=== PATIENT | male | born 1965 | race Hispanic/Latino ===

== ENCOUNTER 2017-01-28 18:10 | Emergency (ER) | payer OTHER ==
[2017-01-28 18:18] VITALS: BP 122/88
== END 2017-01-28 19:58 | disposition left against medical advice (07) ==
LOC: ED 18:10
DX: M79.1 Myalgia (principal); Z53.21 Procedure and treatment not carried out due to patient leaving prior to being seen by health care provider

== ENCOUNTER 2017-01-29 21:44 | Emergency (ER) | payer SELFPAY ==
[2017-01-29 21:58] VITALS: BP 110/69
[2017-01-29 22:30] LABS: BUN/Creatinine Ratio 11.42; Calcium 7.9 mg/dL (8.4-10.2); Chloride 91.2 mmol/L (98-107); Potassium 3.6 mmol/L (3.6-5.0)
[2017-01-29 23:07] LABS: Eosinophils % (Auto) 1.2 % (0.0-4.3); Hematocrit 42.5 % (35.5-45.6); Hemoglobin 13.8 gm/dl (11.8-15.2); Mean Corpuscular HGB Conc 32 % (32-34); Mean Corpuscular Hemoglobin 32 pg (28-32); Mean Corpuscular Volume 99 fl (84-94); Platelet Count 265 K/mm3 (140-440); Red Blood Count 4.31 M/mm3 (3.65-5.03); White Blood Count 7.1 K/mm3 (4.5-11.0)
[2017-01-30 00:14] LABS: Bilirubin,Urine NEG (Negative); Blood,Urine NEG (Negative); Ketones,Urine NEG (Negative); Leukocyte Esterase,Urine NEG (Negative); Nitrite,Urine NEG (Negative); Protein,Urine <15 mg/dL mg/dL (Negative); Urobilinogen,Urine < 2.0 mg/dL (<2.0); WBC,Urine < 1.0 /HPF (0.0-6.0)
--- NOTE | 2017-02-06 23:39 | ED Elopement Review ---
ED Pt Elopement review - Results review Lab results: Laboratory Tests 01/29/17 01/29/17 01/29/17 22:00 22:07 22:07 WBC 7.1 RBC 4.31 Hgb 13.8 Hct 42.5 MCV 99 H MCH 32 MCHC 32 RDW 14.0 Plt Count 265 Lymph % (Auto) 17.0 [place] % (Auto) 9.1 H Eos % (Auto) 1.2 Baso % (Auto) 1.0 Lymph # 1.2 [place] # 0.6 Eos # 0.1 Baso # 0.1 Seg Neutrophils % 71.7 H Seg Neutrophils # 5.1 VBG pH Sodium 128 L Potassium 3.6 Chloride 91.2 L Carbon Dioxide 20 L Anion Gap 20 BUN 16 Creatinine 1.4 Estimated GFR 53 BUN/Creatinine Ratio 11.42 Glucose 831 H* POC Glucose > 500 H Calcium 7.9 L Urine Color Urine Turbidity Urine pH Ur Specific [place] Urine Protein Urine Glucose (UA) Urine Ketones Urine Blood Urine Nitrite Urine Bilirubin Urine Urobilinogen Ur Leukocyte Esterase Urine WBC (Auto) Urine RBC (Auto) U Epithel Cells (Auto) 01/29/17 01/29/17 22:07 23:14 WBC RBC Hgb Hct MCV MCH MCHC RDW Plt Count Lymph % (Auto) [place] % (Auto) Eos % (Auto) Baso % (Auto) Lymph # [place] # Eos # Baso # Seg Neutrophils % Seg Neutrophils # VBG pH 7.255 L Sodium Potassium Chloride Carbon Dioxide Anion Gap BUN Creatinine Estimated GFR BUN/Creatinine Ratio Glucose POC Glucose Calcium Urine Color Yellow Urine Turbidity Clear Urine pH 6.0 Ur Specific [place] 1.023 Urine Protein <15 mg/dl Urine Glucose (UA) >=500 Urine Ketones Neg Urine Blood Neg Urine Nitrite Neg Urine Bilirubin Neg Urine Urobilinogen < 2.0 Ur Leukocyte Esterase Neg Urine WBC (Auto) < 1.0 Urine RBC (Auto) 3.0 U Epithel Cells (Auto) < 1.0 - Call Back decision Pt Call Back Decision: No action required (pt returned and was evaluated)
== END 2017-01-29 23:00 | disposition left against medical advice (07) ==
LOC: ED 21:44
DX: Z53.21 Procedure and treatment not carried out due to patient leaving prior to being seen by health care provider (principal)
CPT/HCPCS: 36415; 80048; 81001; 82805; 82962; 85025

== ENCOUNTER 2017-01-30 17:47 | Emergency (ER) | payer SELFPAY ==
--- NOTE | 2017-01-30 18:14 | Emergency Department Report ---
Chief Complaint: Hyperglycemia Stated Complaint: DIABETES/MUSCLE CRAMPS Time Seen by Provider: 01/30/17 18:11 - HPI History of Present Illness: PT c/o urinating every hour x 1 year pt c/o body pain x 1 month PT states he has been off his medication x 1 - 2 months - ROS Review of Systems: + urinary frequency + body aches - Exam Physical Exam: thin male, no acute distress accucheck over 500 MSE screening note: Focused history and physical exam performed. Due to findings the following was ordered: labs ED Disposition for MSE Condition: Stable
[2017-01-30] MEDS ORDERED: NACL 0.9% 1000 ML 1,000 ML IV ONE ×2 (18:15→21:05)
[2017-01-30 18:38] LABS: Basophils % (Auto) 0.8 % (0.0-1.8); Eosinophils % (Auto) 1.5 % (0.0-4.3); Hemoglobin 12.9 gm/dl (11.8-15.2); Mean Corpuscular HGB Conc 33 % (32-34); Mean Corpuscular Hemoglobin 32 pg (28-32); Mean Corpuscular Volume 96 fl (84-94); Platelet Count 260 K/mm3 (140-440); Red Blood Count 4.07 M/mm3 (3.65-5.03); Red Cell Distribution Width 14.1 % (13.2-15.2); White Blood Count 7.1 K/mm3 (4.5-11.0)
[2017-01-30 18:58] LABS: Anion Gap 20 mmol/L; Blood Urea Nitrogen 12 mg/dL (9-20); Calcium 7.7 mg/dL (8.4-10.2); Carbon Dioxide 19 mmol/L (22-30); Chloride 94.7 mmol/L (98-107); Creatine Kinase 591 units/L (55-170); Potassium 3.5 mmol/L (3.6-5.0); Sodium 130 mmol/L (137-145)
[2017-01-30 19:16] LABS: Glucose 798 mg/dL (75-100)
[2017-01-30 19:16] LABS: Bilirubin,Urine NEG (Negative); Blood,Urine NEG (Negative); Ketones,Urine NEG (Negative); Leukocyte Esterase,Urine NEG (Negative); Mucus,Urine FEW /HPF; Nitrite,Urine NEG (Negative); Protein,Urine <15 mg/dL mg/dL (Negative); Urobilinogen,Urine < 2.0 mg/dL (<2.0); WBC,Urine < 1.0 /HPF (0.0-6.0)
[2017-01-30 19:33] LABS: Ketones Negative (Negative)
--- NOTE | 2017-01-30 21:07 | Emergency Department Report ---
ED General Adult HPI - General Chief complaint: Hyperglycemia Stated complaint: DIABETES/MUSCLE CRAMPS Time Seen by Provider: 01/30/17 18:11 Source: patient, RN notes reviewed, old records reviewed Mode of arrival: Ambulatory Limitations: No Limitations - History of Present Illness Initial comments: This is a 51-year-old male. He is previously unknown to me. He reports a past medical history of diabetes and neuropathic pain. The patient can't recall all of his medications, he does think that he is taking gabapentin in the past, 300 mg thrice daily. The patient presents to the ER with complaint of bilateral upper and lower extremity cramping and discomfort, and hyperglycemia. He endorses urinary frequency. Denies headache, neck pain, chest pain, abdominal pain and shortness of breath. His symptoms are constant. They have no exacerbating or relieving factors. -: Gradual Location: left, right, upper extremity, lower extremity Consistency: constant Improves with: none Worsens with: none Associated Symptoms: denies other symptoms - Related Data Home Medications Medication Instructions Recorded Confirmed Last Taken Insulin Regular, Human See Protocol SC ACHS 01/30/17 02/01/17 Unknown Mirtazapine [Remeron] 30 mg PO DAILY 02/01/17 02/01/17 Unknown glipiZIDE [Glucotrol] 2.5 mg PO BID 02/01/17 02/01/17 Unknown Previous Rx's Medication Instructions Recorded Last Taken Type Gabapentin 300 mg PO TID #42 01/30/17 Unknown Rx Lantus Solostar 25 units SC QHS #5 01/30/17 Unknown Rx metFORMIN 1,000 mg PO BID #28 01/30/17 Unknown Rx Allergies Allergy/AdvReac Type Severity Reaction Status Date / Time No Known Allergies Allergy Verified 08/01/13 22:14 ED Review of Systems ROS: Stated complaint: DIABETES/MUSCLE CRAMPS Other details as noted in HPI Constitutional: malaise, weakness Eyes: denies: vision change ENT: denies: epistaxis Respiratory: denies: cough Cardiovascular: denies: chest pain Gastrointestinal: denies: nausea, vomiting Genitourinary: frequency Musculoskeletal: arthralgia, myalgia. denies: back pain Skin: lesions Neurological: weakness Psychiatric: denies: anxiety ED Past Medical Hx - Past Medical History Previous Medical History?: Yes Hx Hypertension: Yes Hx Congestive Heart Failure: No Hx Diabetes: Yes Hx Asthma: No Hx COPD: No Hx HIV: No - Surgical History Past Surgical History?: Yes Hx Cholecystectomy: Yes Additional Surgical History: hernia - Social History Smoking Status: Current Every Day Smoker Substance Use Type: None - Medications Home Medications: Home Medications Medication Instructions Recorded Confirmed Last Taken Type Gabapentin 300 mg PO TID #42 01/30/17 02/01/17 Unknown Rx Insulin Regular, Human See Protocol SC ACHS 01/30/17 02/01/17 Unknown History Lantus Solostar 25 units SC QHS #5 01/30/17 02/01/17 Unknown Rx metFORMIN 1,000 mg PO BID #28 01/30/17 02/01/17 Unknown Rx Mirtazapine [Remeron] 30 mg PO DAILY 02/01/17 02/01/17 Unknown History glipiZIDE [Glucotrol] 2.5 mg PO BID 02/01/17 02/01/17 Unknown History ED Physical Exam - General Limitations: No Limitations General appearance: alert, in no apparent distress - Head Head exam: Present: atraumatic, normocephalic - Eye Eye exam: Present: normal appearance, EOMI. Absent: nystagmus - ENT ENT exam: Present: normal exam, normal orophraynx, mucous membranes moist, normal external ear exam - Neck Neck exam: Present: normal inspection - Respiratory Respiratory exam: Present: normal lung sounds bilaterally. Absent: respiratory distress, wheezes, rales, rhonchi, stridor, chest wall tenderness - Cardiovascular Cardiovascular Exam: Present: normal rhythm, bradycardia, normal heart sounds. Absent: tachycardia, irregular rhythm, systolic murmur, diastolic murmur, rubs, gallop - GI/Abdominal GI/Abdominal exam: Present: soft, normal bowel sounds. Absent: distended, guarding, rebound, rigid, pulsatile mass - Rectal Rectal exam: Present: deferred - Extremities Exam Extremities exam: Present: normal inspection, full ROM, normal capillary refill. Absent: pedal edema, joint swelling, calf tenderness - Back Exam Back exam: Present: normal inspection, full ROM. Absent: tenderness, CVA tenderness (R), CVA tenderness (L), muscle spasm, paraspinal tenderness, vertebral tenderness - Neurological Exam Neurological exam: Present: alert, oriented X3, normal gait, other (Extraocular movements intact. Tongue midline. No facial droop. Facial sensation intact to light touch in the V1, V2, V3 distribution bilaterally. 5 and 5 strength in 4 extremities.. Sensation is intact to light touch in 4 extremities.). Absent : motor sensory deficit - Psychiatric Psychiatric exam: Present: anxious - Skin Skin exam: Present: warm, dry, intact, normal color. Absent: rash ED Course Vital Signs 01/30/17 01/30/17 01/30/17 18:11 20:58 21:00 Temperature 98.2 F Pulse Rate 73 Respiratory 16 Rate Blood Pressure 104/74 O2 Sat by Pulse 98 99 100 Oximetry 01/30/17 01/30/17 01/30/17 21:53 22:00 22:30 Temperature Pulse Rate 61 57 L 67 Respiratory 17 19 19 Rate Blood Pressure 120/74 116/75 O2 Sat by Pulse 99 100 99 Oximetry 01/30/17 01/30/17 23:00 23:31 Temperature Pulse Rate 58 L 63 Respiratory 22 14 Rate Blood Pressure 111/71 116/65 O2 Sat by Pulse 97 97 Oximetry ED Medical Decision Making - Lab Data Result diagrams: 01/30/17 18:20 01/30/17 18:20 Vital Signs 01/30/17 01/30/17 18:11 21:53 Temperature 98.2 F Pulse Rate 73 61 Respiratory 16 17 Rate Blood Pressure 104/74 O2 Sat by Pulse 98 99 Oximetry Lab Results 01/30/17 01/30/17 01/30/17 Range/Units 18:08 18:20 18:20 WBC 7.1 (4.5-11.0) K/mm3 RBC 4.07 (3.65-5.03) M/mm3 Hgb 12.9 (11.8-15.2) gm/dl Hct 39.0 (35.5-45.6) % MCV 96 H (84-94) fl MCH 32 (28-32) pg MCHC 33 (32-34) % RDW 14.1 (13.2-15.2) % Plt Count 260 (140-440) K/mm3 Lymph % (Auto) 21.9 (13.4-35.0) % [place] % (Auto) 9.2 H (0.0-7.3) % Eos % (Auto) 1.5 (0.0-4.3) % Baso % (Auto) 0.8 (0.0-1.8) % Lymph # 1.5 (1.2-5.4) K/mm3 [place] # 0.7 (0.0-0.8) K/mm3 Eos # 0.1 (0.0-0.4) K/mm3 Baso # 0.1 (0.0-0.1) K/mm3 Seg Neutrophils % 66.6 (40.0-70.0) % Seg Neutrophils # 4.7 (1.8-7.7) K/mm3 VBG pH (7.320-7.420) Sodium 130 L (137-145) mmol/L Potassium 3.5 L (3.6-5.0) mmol/L Chloride 94.7 L (98-107) mmol/L Carbon Dioxide 19 L (22-30) mmol/L Anion Gap 20 mmol/L BUN 12 (9-20) mg/dL Creatinine 1.1 (0.8-1.5) mg/dL Estimated GFR > 60 ml/min BUN/Creatinine Ratio 10.90 % Glucose 798 H* (75-100) mg/dL POC Glucose > 500 H (70-105) Ketones Quantitative Negative (Negative) Calcium 7.7 L (8.4-10.2) mg/dL Phosphorus (2.5-4.5) mg/dL Magnesium (1.7-2.3) mg/dL Total Creatine Kinase 591 H (55-170) units/L Urine Color (Yellow) Urine Turbidity (Clear) Urine pH (5.0-7.0) Ur Specific [place] (1.003-1.030) Urine Protein (Negative) mg/dL Urine Glucose (UA) (Negative) mg/dL Urine Ketones (Negative) mg/dL Urine Blood (Negative) Urine Nitrite (Negative) Urine Bilirubin (Negative) Urine Urobilinogen (<2.0) mg/dL Ur Leukocyte Esterase (Negative) Urine WBC (Auto) (0.0-6.0) /HPF Urine RBC (Auto) (0.0-6.0) /HPF Urine Mucus /HPF 01/30/17 01/30/17 01/30/17 Range/Units 18:20 18:53 21:10 WBC (4.5-11.0) K/mm3 RBC (3.65-5.03) M/mm3 Hgb (11.8-15.2) gm/dl Hct (35.5-45.6) % MCV (84-94) fl MCH (28-32) pg MCHC (32-34) % RDW (13.2-15.2) % Plt Count (140-440) K/mm3 Lymph % (Auto) (13.4-35.0) % [place] % (Auto) (0.0-7.3) % Eos % (Auto) (0.0-4.3) % Baso % (Auto) (0.0-1.8) % Lymph # (1.2-5.4) K/mm3 [place] # (0.0-0.8) K/mm3 Eos # (0.0-0.4) K/mm3 Baso # (0.0-0.1) K/mm3 Seg Neutrophils % (40.0-70.0) % Seg Neutrophils # (1.8-7.7) K/mm3 VBG pH 7.319 L (7.320-7.420) Sodium (137-145) mmol/L Potassium (3.6-5.0) mmol/L Chloride (98-107) mmol/L Carbon Dioxide (22-30) mmol/L Anion Gap mmol/L BUN (9-20) mg/dL Creatinine (0.8-1.5) mg/dL Estimated GFR ml/min BUN/Creatinine Ratio % Glucose (75-100) mg/dL POC Glucose (70-105) Ketones Quantitative (Negative) Calcium (8.4-10.2) mg/dL Phosphorus 3.40 (2.5-4.5) mg/dL Magnesium 2.10 (1.7-2.3) mg/dL Total Creatine Kinase (55-170) units/L Urine Color Straw (Yellow) Urine Turbidity Clear (Clear) Urine pH 6.0 (5.0-7.0) Ur Specific [place] 1.024 (1.003-1.030) Urine Protein <15 mg/dl (Negative) mg/dL Urine Glucose (UA) >=500 (Negative) mg/dL Urine Ketones Neg (Negative) mg/dL Urine Blood Neg (Negative) Urine Nitrite Neg (Negative) Urine Bilirubin Neg (Negative) Urine Urobilinogen < 2.0 (<2.0) mg/dL Ur Leukocyte Esterase Neg (Negative) Urine WBC (Auto) < 1.0 (0.0-6.0) /HPF Urine RBC (Auto) 2.0 (0.0-6.0) /HPF Urine Mucus Few /HPF 01/30/17 Range/Units 21:48 WBC (4.5-11.0) K/mm3 RBC (3.65-5.03) M/mm3 Hgb (11.8-15.2) gm/dl Hct (35.5-45.6) % MCV (84-94) fl MCH (28-32) pg MCHC (32-34) % RDW (13.2-15.2) % Plt Count (140-440) K/mm3 Lymph % (Auto) (13.4-35.0) % [place] % (Auto) (0.0-7.3) % Eos % (Auto) (0.0-4.3) % Baso % (Auto) (0.0-1.8) % Lymph # (1.2-5.4) K/mm3 [place] # (0.0-0.8) K/mm3 Eos # (0.0-0.4) K/mm3 Baso # (0.0-0.1) K/mm3 Seg Neutrophils % (40.0-70.0) % Seg Neutrophils # (1.8-7.7) K/mm3 VBG pH (7.320-7.420) Sodium (137-145) mmol/L Potassium (3.6-5.0) mmol/L Chloride (98-107) mmol/L Carbon Dioxide (22-30) mmol/L Anion Gap mmol/L BUN (9-20) mg/dL Creatinine (0.8-1.5) mg/dL Estimated GFR ml/min BUN/Creatinine Ratio % Glucose (75-100) mg/dL POC Glucose 484 H (70-105) Ketones Quantitative (Negative) Calcium (8.4-10.2) mg/dL Phosphorus (2.5-4.5) mg/dL Magnesium (1.7-2.3) mg/dL Total Creatine Kinase (55-170) units/L Urine Color (Yellow) Urine Turbidity (Clear) Urine pH (5.0-7.0) Ur Specific [place] (1.003-1.030) Urine Protein (Negative) mg/dL Urine Glucose (UA) (Negative) mg/dL Urine Ketones (Negative) mg/dL Urine Blood (Negative) Urine Nitrite (Negative) Urine Bilirubin (Negative) Urine Urobilinogen (<2.0) mg/dL Ur Leukocyte Esterase (Negative) Urine WBC (Auto) (0.0-6.0) /HPF Urine RBC (Auto) (0.0-6.0) /HPF Urine Mucus /HPF - Medical Decision Making Differential diagnosis: Diabetic ketoacidosis, hyperglycemia, medication noncompliance Assessment and plan: 51-year-old male with nonspecific muscular cramps, reassuring vital signs, afebrile, most likely profound symptomatically hyperglycemia. He does not have anion gap acidosis, does not meet criteria for DKA, or hyperosmolar state. He will be treated with IV fluids, insulin, ketorolac, and the nursing staff has reconciled his medications. He is instructed as to the importance of outpatient follow-up. Critical care attestation.: If time is entered above; I have spent that time in minutes in the direct care of this critically ill patient, excluding procedure time. ED Disposition Clinical Impression: Uncontrolled diabetes mellitus Disposition: DC-01 TO HOME OR SELFCARE Is pt being admited?: No Does the pt Need Aspirin: No Condition: Good Instructions: Diabetes Mellitus Type 2 in Adults (ED) Additional Instructions: Take the medications as directed. Follow up with a primary care doctor within the next 2-3 weeks. Please note that you have been given 2 week refills on your medications. It is very important to closely follow up as an outpatient for further management. Long-term complications of hyperglycemia includes stroke, heart attack, disability, , paralysis, loss of quality of life. Return to the ER right away if fevers, chills, chest pain, shortness of breath, intractable nausea or vomiting, confusion, inability to tolerate liquid feeds. Prescriptions: Lantus Solostar 25 units SC QHS #5 Gabapentin 300 mg PO TID #42 metFORMIN 1,000 mg PO BID #28 Referrals: PRIMARY CARE, [Primary Care Provider] - 3-5 Days CHUY REVELES MD [Staff Physician] - 3-5 Days JADA ANDREWS MD [Staff Physician] - 3-5 Days
[2017-01-30 22:02] LABS: Magnesium 2.1 mg/dL (1.7-2.3); Phosphorous 3.4 mg/dL (2.5-4.5)
[2017-01-30] MEDS ORDERED: TORADOL IV ONE (22:42)
[2017-01-30 23:39] VITALS: BP 116/65
== END 2017-01-30 23:39 | disposition home or self-care (01) ==
LOC: ED 17:47
DX: E11.65 Type 2 diabetes mellitus with hyperglycemia (principal); I10 Essential (primary) hypertension; F17.210 Nicotine dependence, cigarettes, uncomplicated; Z79.4 Long term (current) use of insulin
CPT/HCPCS: 36415; 80048; 81001; 82010; 82550; 82805; 82962; 83735; 84100; 85025; 96361; 96374; 96375; 99284; J1885; J7030; J1815

== ENCOUNTER 2017-02-01 11:48 | Emergency (ER) | payer OTHER ==
--- NOTE | 2017-02-01 11:59 | Emergency Department Report ---
ED Altered Mental Status HPI - General Stated Complaint: OVERDOSE Time Seen by Provider: 02/01/17 11:54 - History of Present Illness Initial Comments: Patient is a 51-year-old male who took 5 10 tablets. He was found in a bathroom slumped over. On arrival he is arousable to voice. EMS did not administer any Narcan. He has an extremely slow respiratory rate. He states he was not trying to intentionally overdose but felt that he needed some additional methadone. He states he usually takes 2-3 times a day. MD Complaint: altered mental status -: Sudden Severity: moderate Consistency of Symptoms: waxing and waning Context: drug abuse Associated Symptoms: denies other symptoms - Related Data Home Medications Medication Instructions Recorded Confirmed Last Taken ALPRAZolam 0.5 mg PO DAILY 01/30/17 01/30/17 Unknown Insulin Regular, Human See Protocol SC ACHS 01/30/17 01/30/17 Unknown Previous Rx's Medication Instructions Recorded Last Taken Type Gabapentin 300 mg PO TID #42 01/30/17 Unknown Rx Lantus Solostar 25 units SC QHS #5 01/30/17 Unknown Rx metFORMIN 1,000 mg PO BID #28 01/30/17 Unknown Rx Allergies Allergy/AdvReac Type Severity Reaction Status Date / Time No Known Allergies Allergy Verified 08/01/13 22:14 ED Review of Systems ROS: Stated complaint: OVERDOSE Other details as noted in HPI Comment: All other systems reviewed and negative Constitutional: weakness Eyes: denies: eye pain, eye discharge, vision change ENT: denies: ear pain, throat pain Respiratory: denies: cough, shortness of breath, wheezing Cardiovascular: denies: chest pain, palpitations Endocrine: no symptoms reported Gastrointestinal: denies: abdominal pain, nausea, diarrhea Genitourinary: denies: urgency, dysuria Musculoskeletal: denies: back pain, joint swelling, arthralgia Skin: denies: rash, lesions Neurological: denies: headache, weakness, paresthesias Psychiatric: denies: anxiety, depression Hematological/Lymphatic: denies: easy bleeding, easy bruising ED Past Medical Hx - Past Medical History Hx Hypertension: Yes Hx Congestive Heart Failure: No Hx Diabetes: Yes Hx Asthma: No Hx COPD: No Hx HIV: No - Surgical History Hx Cholecystectomy: Yes Additional Surgical History: hernia - Family History Family history: no significant - Social History Smoking Status: Current Every Day Smoker Substance Use Type: None - Medications Home Medications: Home Medications Medication Instructions Recorded Confirmed Last Taken Type ALPRAZolam 0.5 mg PO DAILY 01/30/17 01/30/17 Unknown History Gabapentin 300 mg PO TID #42 01/30/17 Unknown Rx Insulin Regular, Human See Protocol SC ACHS 01/30/17 01/30/17 Unknown History Lantus Solostar 25 units SC QHS #5 01/30/17 Unknown Rx metFORMIN 1,000 mg PO BID #28 01/30/17 Unknown Rx ED Physical Exam - General Limitations: Altered Mental Status General appearance: lethargic, obtunded, other (thin and cachectic) - Head Head exam: Present: atraumatic, normocephalic - Eye Eye exam: Absent: scleral icterus, conjunctival injection Pupils: Present: other (pinpoint pupils) - ENT ENT exam: Present: normal orophraynx, mucous membranes dry. Absent: normal exam - Neck Neck exam: Present: normal inspection. Absent: tenderness - Respiratory Respiratory exam: Present: normal lung sounds bilaterally, other (decreased respiratory rate) - Cardiovascular Cardiovascular Exam: Present: regular rate, normal rhythm - GI/Abdominal GI/Abdominal exam: Present: soft. Absent: distended, tenderness - Extremities Exam Extremities exam: Absent: normal inspection, full ROM - Neurological Exam Neurological exam: Present: altered, other (answers questions to voice). Absent : alert - Psychiatric Psychiatric exam: Present: normal affect, normal mood - Skin Skin exam: Present: warm, dry, intact ED Course Vital Signs 02/01/17 11:50 Pulse Rate 86 Respiratory 12 Rate Blood Pressure 155/82 Blood Pressure 155/82 [Left] O2 Sat by Pulse 100 Oximetry - Lab Data Result diagrams: 02/01/17 12:23 02/01/17 12:23 Lab Results 02/01/17 02/01/17 02/01/17 Range/Units 11:55 12:23 12:23 WBC 11.2 H (4.5-11.0) K/mm3 RBC 4.38 (3.65-5.03) M/mm3 Hgb 14.3 (11.8-15.2) gm/dl Hct 42.6 (35.5-45.6) % MCV 97 H (84-94) fl MCH 33 H (28-32) pg MCHC 34 (32-34) % RDW 14.2 (13.2-15.2) % Plt Count 265 (140-440) K/mm3 Lymph % (Auto) 6.5 L (13.4-35.0) % [place] % (Auto) 6.9 (0.0-7.3) % Eos % (Auto) 0.4 (0.0-4.3) % Baso % (Auto) 0.6 (0.0-1.8) % Lymph # 0.7 L (1.2-5.4) K/mm3 [place] # 0.8 (0.0-0.8) K/mm3 Eos # 0.0 (0.0-0.4) K/mm3 Baso # 0.1 (0.0-0.1) K/mm3 Seg Neutrophils % 85.6 H (40.0-70.0) % Seg Neutrophils # 9.6 H (1.8-7.7) K/mm3 Sodium (137-145) mmol/L Potassium (3.6-5.0) mmol/L Chloride (98-107) mmol/L Carbon Dioxide (22-30) mmol/L Anion Gap mmol/L BUN (9-20) mg/dL Creatinine (0.8-1.5) mg/dL Estimated GFR ml/min BUN/Creatinine Ratio % Glucose (75-100) mg/dL POC Glucose 446 H (70-105) Lactic Acid 1.60 (0.7-2.0) mmol/L Calcium (8.4-10.2) mg/dL Total Bilirubin (0.1-1.2) mg/dL AST (5-40) units/L ALT (7-56) units/L Alkaline Phosphatase (35-129) units/L Total Creatine Kinase (55-170) units/L Total Protein (6.3-8.2) g/dL Albumin (3.9-5) g/dL Albumin/Globulin Ratio % Urine Color (Yellow) Urine Turbidity (Clear) Urine pH (5.0-7.0) Ur Specific [place] (1.003-1.030) Urine Protein (Negative) mg/dL Urine Glucose (UA) (Negative) mg/dL Urine Ketones (Negative) mg/dL Urine Blood (Negative) Urine Nitrite (Negative) Urine Bilirubin (Negative) Urine Urobilinogen (<2.0) mg/dL Ur Leukocyte Esterase (Negative) Urine WBC (Auto) (0.0-6.0) /HPF Urine RBC (Auto) (0.0-6.0) /HPF U Epithel Cells (Auto) (0-13.0) /HPF Urine Opiates Screen Urine Methadone Screen Ur Barbiturates Screen Ur Phencyclidine Scrn Ur Amphetamines Screen U Benzodiazepines Scrn Urine Cocaine Screen U Marijuana (THC) Screen Drugs of Abuse Note 02/01/17 02/01/17 02/01/17 Range/Units 12:23 12:38 12:38 WBC (4.5-11.0) K/mm3 RBC (3.65-5.03) M/mm3 Hgb (11.8-15.2) gm/dl Hct (35.5-45.6) % MCV (84-94) fl MCH (28-32) pg MCHC (32-34) % RDW (13.2-15.2) % Plt Count (140-440) K/mm3 Lymph % (Auto) (13.4-35.0) % [place] % (Auto) (0.0-7.3) % Eos % (Auto) (0.0-4.3) % Baso % (Auto) (0.0-1.8) % Lymph # (1.2-5.4) K/mm3 [place] # (0.0-0.8) K/mm3 Eos # (0.0-0.4) K/mm3 Baso # (0.0-0.1) K/mm3 Seg Neutrophils % (40.0-70.0) % Seg Neutrophils # (1.8-7.7) K/mm3 Sodium 136 L (137-145) mmol/L Potassium 4.2 (3.6-5.0) mmol/L Chloride 102.1 (98-107) mmol/L Carbon Dioxide 21 L (22-30) mmol/L Anion Gap 17 mmol/L BUN 13 (9-20) mg/dL Creatinine 1.3 (0.8-1.5) mg/dL Estimated GFR 58 ml/min BUN/Creatinine Ratio 10.00 % Glucose 497 H (75-100) mg/dL POC Glucose (70-105) Lactic Acid (0.7-2.0) mmol/L Calcium 7.7 L (8.4-10.2) mg/dL Total Bilirubin 0.30 (0.1-1.2) mg/dL AST 35 (5-40) units/L ALT 39 (7-56) units/L Alkaline Phosphatase 183 H (35-129) units/L Total Creatine Kinase 352 H (55-170) units/L Total Protein 6.1 L (6.3-8.2) g/dL Albumin 3.5 L (3.9-5) g/dL Albumin/Globulin Ratio 1.3 % Urine Color Yellow (Yellow) Urine Turbidity Clear (Clear) Urine pH 6.0 (5.0-7.0) Ur Specific [place] 1.018 (1.003-1.030) Urine Protein <15 mg/dl (Negative) mg/dL Urine Glucose (UA) >=500 (Negative) mg/dL Urine Ketones Neg (Negative) mg/dL Urine Blood Neg (Negative) Urine Nitrite Neg (Negative) Urine Bilirubin Neg (Negative) Urine Urobilinogen < 2.0 (<2.0) mg/dL Ur Leukocyte Esterase Neg (Negative) Urine WBC (Auto) 1.0 (0.0-6.0) /HPF Urine RBC (Auto) 2.0 (0.0-6.0) /HPF U Epithel Cells (Auto) < 1.0 (0-13.0) /HPF Urine Opiates Screen Presumptive negative Urine Methadone Screen Presumptive positive Ur Barbiturates Screen Presumptive negative Ur Phencyclidine Scrn Presumptive negative Ur Amphetamines Screen Presumptive negative U Benzodiazepines Scrn Presumptive negative Urine Cocaine Screen Presumptive negative U Marijuana (THC) Screen Presumptive negative Drugs of Abuse Note Disclamer - Medical Decision Making Patient is a 51-year-old male with a repeat overdose. He presents with altered mental status. Plan to give him 0.4 mg of Narcan to sustain a reasonable respiratory rate and will observe in the emergency Department. Given the long half-life of methadone I suspect that may need to admit the patient overnight for observation. Discussed case with hospitalist. Plan admit patient to the floor for overnight observation given the half-life of methadone. Critical care attestation.: If time is entered above; I have spent that time in minutes in the direct care of this critically ill patient, excluding procedure time. ED Disposition Clinical Impression: Uncontrolled diabetes mellitus Disposition: DC- OP ADMIT IP TO THIS HOSP Is pt being admited?: Yes Condition: Stable Instructions: Diabetes Mellitus Type 2 in Adults (ED)
--- NOTE | 2017-02-01 12:29 | XRay Report ---
CHEST ONE VIEW INDICATION: Altered mental status. COMPARISON: None similar. FINDINGS: Portable, single, frontal chest radiograph demonstrates normal cardiomediastinal silhouette. Clear lungs. Unremarkable bones. Extrinsic EKG leads. CONCLUSION: No acute disease in the chest. Thank you for the opportunity to participate in this patient's care.
[2017-02-01 12:51] LABS: Urine Drugs of Abuse Note Disclamer
[2017-02-01 12:54] LABS: Albumin 3.5 g/dL (3.9-5); Albumin/Globulin Ratio 1.3 %; Bilirubin,Total 0.3 mg/dL (0.1-1.2); Calcium 7.7 mg/dL (8.4-10.2); Chloride 102.1 mmol/L (98-107); Potassium 4.2 mmol/L (3.6-5.0); Total Protein 6.1 g/dL (6.3-8.2)
[2017-02-01 13:01] LABS: Basophils % (Auto) 0.6 % (0.0-1.8); Eosinophils % (Auto) 0.4 % (0.0-4.3); Hematocrit 42.6 % (35.5-45.6); Hemoglobin 14.3 gm/dl (11.8-15.2); Mean Corpuscular HGB Conc 34 % (32-34); Mean Corpuscular Hemoglobin 33 pg (28-32); Mean Corpuscular Volume 97 fl (84-94); Platelet Count 265 K/mm3 (140-440); Red Blood Count 4.38 M/mm3 (3.65-5.03); Red Cell Distribution Width 14.2 % (13.2-15.2); White Blood Count 11.2 K/mm3 (4.5-11.0)
[2017-02-01 13:17] LABS: Bilirubin,Urine NEG (Negative); Blood,Urine NEG (Negative); Ketones,Urine NEG (Negative); Leukocyte Esterase,Urine NEG (Negative); Nitrite,Urine NEG (Negative); Protein,Urine <15 mg/dL mg/dL (Negative); Urobilinogen,Urine < 2.0 mg/dL (<2.0)
[2017-02-01] MEDS ORDERED: NACL 0.9% 1000 ML 1,000 ML ONE (14:15)
[2017-02-01] MEDS ORDERED: NACL 0.9% 1000 ML 1,000 ML IV ONE (14:16)
--- NOTE | 2017-02-01 14:47 | History and Physical Report ---
History of Present Illness Chief complaint: I took too many pills History of present illness: 51 YO Male with HTN, DM, Nicotine Dependence presents to ED for evaluation. Pt states that he felt sleepy after taking extra methadone tablets. Pt states tht he felt like he needed to take extra medication. Pt denies HI/SI/ or iintent to harm himself in any way. Pt seen and evaluated in Ed, but no significant new physical exam findings. Pt medically optimized and back to usual state of health. Pt discharged home and instructed to f/u pcp 1wk. Past History Past Medical History: denies: diabetes, hypertension Past Surgical History: No surgical history (reviewed) Social history: single, smoking. denies: alcohol abuse, prescription drug abuse Family history: hypertension Medications and Allergies Allergies Allergy/AdvReac Type Severity Reaction Status Date / Time No Known Allergies Allergy Verified 08/01/13 22:14 Home Medications Medication Instructions Recorded Confirmed Last Taken Type Gabapentin 300 mg PO TID #42 01/30/17 02/01/17 Unknown Rx Insulin Regular, Human See Protocol [facility] 01/30/17 02/01/17 Unknown History Lantus Solostar 25 units [facility] #5 01/30/17 02/01/17 Unknown Rx metFORMIN 1,000 mg PO BID #28 01/30/17 02/01/17 Unknown Rx Mirtazapine [Remeron] 30 mg PO DAILY 02/01/17 02/01/17 Unknown History glipiZIDE [Glucotrol] 2.5 mg PO BID 02/01/17 02/01/17 Unknown History Active Meds: Active Medications Sodium Chloride (Nacl 0.9% 1000 Ml) 1,000 mls @ 999 mls/hr IV BOLUS ONE Stop: 02/01/17 15:16 Last Admin: 02/01/17 14:24 Dose: 999 mls/hr Review of Systems Constitutional: weakness, no fever, no chills Ears, nose, mouth and throat: no ear pain, no decreased hearing, no nasal discharge Cardiovascular: no chest pain, no palpitations Respiratory: no cough, no cough with sputum Gastrointestinal: no nausea, no vomiting Exam - Constitutional Vitals: Temp Pulse Resp BP Pulse Ox 86 12 155/82 100 02/01/17 11:50 02/01/17 11:50 02/01/17 11:50 02/01/17 11:50 General appearance: Present: no acute distress, well-nourished - EENT Eyes: Present: PERRL ENT: hearing intact, clear oral mucosa - Neck Neck: Present: supple, normal ROM - Respiratory Respiratory effort: normal Respiratory: bilateral: CTA - Cardiovascular Heart Sounds: Present: S1 & S2. Absent: rub, click - Extremities Extremities: pulses symmetrical, No edema Peripheral Pulses: within normal limits - Abdominal General gastrointestinal: Present: soft, non-tender, non-distended, normal bowel sounds Male genitourinary: Present: normal - Integumentary Integumentary: Present: clear, warm, dry - Musculoskeletal Musculoskeletal: gait normal, strength equal bilaterally - Psychiatric Psychiatric: appropriate mood/affect, intact judgment & insight - Neurologic Neurologic: CNII-XII intact, moves all extremities Results - Labs CBC & Chem 7: 02/01/17 12:23 02/01/17 12:23 Labs: Abnormal lab results 02/01/17 02/01/17 02/01/17 Range/Units 11:55 12:23 12:23 WBC 11.2 H (4.5-11.0) K/mm3 MCV 97 H (84-94) fl MCH 33 H (28-32) pg Lymph % (Auto) 6.5 L (13.4-35.0) % Lymph # 0.7 L (1.2-5.4) K/mm3 Seg Neutrophils % 85.6 H (40.0-70.0) % Seg Neutrophils # 9.6 H (1.8-7.7) K/mm3 Sodium 136 L (137-145) mmol/L Carbon Dioxide 21 L (22-30) mmol/L Glucose 497 H (75-100) mg/dL POC Glucose 446 H (70-105) Calcium 7.7 L (8.4-10.2) mg/dL Alkaline Phosphatase 183 H (35-129) units/L Total Creatine Kinase 352 H (55-170) units/L Total Protein 6.1 L (6.3-8.2) g/dL Albumin 3.5 L (3.9-5) g/dL Assessment and Plan - Patient Problems (1) HTN (hypertension) Status: Acute Qualifiers: Hypertension type: H Plan to address problem: resume home medication. (2) Opiate overdose Status: Acute Qualifiers: Encounter type: initial encounter Injury intent: accidental or unintentional Qualified Code(s): T40.601A - Poisoning by unspecified narcotics , accidental (unintentional), initial encounter Plan to address problem: Pt treated with Narcan. Pt medically optimized and back to usual state of health. pt discharged home and instructed to f/u pcp 1wk (3) Tobacco abuse Status: Chronic Plan to address problem: Pt counseled. pt refused to pick quit date
[2017-02-01 18:05] VITALS: BP 173/72
== END 2017-02-01 18:05 | disposition admitted as inpatient to this hospital (09) ==
LOC: ED 11:48
DX: I10 Essential (primary) hypertension (principal); F17.200 Nicotine dependence, unspecified, uncomplicated
CPT/HCPCS: 36415; 71010; 80053; 80307; 81001; 82140; 82550; 82962; 85025; 93005; 93010; 96360; 99285; J7030

== ENCOUNTER 2017-02-10 09:03 | Emergency (ER) | payer SELFPAY ==
[2017-02-10 09:44] LABS: Basophils % (Auto) 0.3 % (0.0-1.8); Eosinophils % (Auto) 0.6 % (0.0-4.3); Hematocrit 43.9 % (35.5-45.6); Hemoglobin 14.4 gm/dl (11.8-15.2); Mean Corpuscular HGB Conc 33 % (32-34); Mean Corpuscular Hemoglobin 31 pg (28-32); Mean Corpuscular Volume 96 fl (84-94); Platelet Count 247 K/mm3 (140-440); Red Blood Count 4.58 M/mm3 (3.65-5.03); Red Cell Distribution Width 13.8 % (13.2-15.2); White Blood Count 10.3 K/mm3 (4.5-11.0)
[2017-02-10 09:51] LABS: Anion Gap 14 mmol/L; BUN/Creatinine Ratio 12.85; Blood Urea Nitrogen 9 mg/dL (9-20); Calcium 8.6 mg/dL (8.4-10.2); Carbon Dioxide 32 mmol/L (22-30); Chloride 98.5 mmol/L (98-107); Glucose 310 mg/dL (75-100); Potassium 3.9 mmol/L (3.6-5.0); Sodium 141 mmol/L (137-145)
[2017-02-10] MEDS ORDERED: NACL 0.9% 1000 ML 1,000 ML IV ONE (10:05)
[2017-02-10] MEDS ORDERED: MORPHINE IV ONE (10:05)
--- NOTE | 2017-02-10 10:15 | Emergency Department Report ---
ED General Adult HPI - General Chief complaint: Medical Clearance Stated complaint: BLOOD SUGAR LOW Time Seen by Provider: 02/10/17 09:55 Source: patient Mode of arrival: Ambulatory Limitations: No Limitations - History of Present Illness Initial comments: 51-year-old male with a history of diabetes elevated blood sugars here with complaint of feeling weak. Patient states that since his recent discharge he was unable to obtain any of his medications. He hasn't been taking any of his diabetes medications. He has some polyuria and polydipsia and feels weak all over. Denies fevers chills. Also complains of some left flank/back pain. No dysuria or hematuria. -: Gradual Severity scale (0 -10): 7 Quality: other (weakness) Consistency: constant Improves with: none Worsens with: none Associated Symptoms: malaise. denies: confusion, headaches, loss of appetite Treatments Prior to Arrival: none - Related Data Home Medications Medication Instructions Recorded Confirmed Last Taken Insulin Regular, Human See Protocol [facility] 01/30/17 02/01/17 Unknown Mirtazapine [Remeron] 30 mg PO DAILY 02/01/17 02/01/17 Unknown glipiZIDE [Glucotrol] 2.5 mg PO BID 02/01/17 02/01/17 Unknown Previous Rx's Medication Instructions Recorded Last Taken Type Gabapentin 300 mg PO TID #42 01/30/17 Unknown Rx Lantus Solostar 25 units [facility] #5 01/30/17 Unknown Rx metFORMIN 1,000 mg PO BID #28 01/30/17 Unknown Rx Allergies Allergy/AdvReac Type Severity Reaction Status Date / Time No Known Allergies Allergy Verified 02/10/17 09:20 ED Review of Systems ROS: Stated complaint: BLOOD SUGAR LOW Other details as noted in HPI Comment: All other systems reviewed and negative Constitutional: malaise, weakness. denies: chills, fever Eyes: denies: eye pain, eye discharge, vision change ENT: denies: ear pain, throat pain Respiratory: denies: cough, shortness of breath, wheezing Cardiovascular: denies: chest pain, palpitations Endocrine: no symptoms reported Gastrointestinal: denies: abdominal pain, nausea, diarrhea Genitourinary: denies: urgency, dysuria Musculoskeletal: denies: back pain, joint swelling, arthralgia Skin: denies: rash, lesions Neurological: denies: headache, weakness, paresthesias Psychiatric: denies: anxiety, depression Hematological/Lymphatic: denies: easy bleeding, easy bruising ED Past Medical Hx - Past Medical History Hx Hypertension: Yes Hx Congestive Heart Failure: No Hx Diabetes: Yes Hx Asthma: No Hx COPD: No Hx HIV: No Additional medical history: neuropathy - Surgical History Hx Cholecystectomy: Yes Additional Surgical History: hernia - Family History Family history: no significant - Social History Smoking Status: Current Every Day Smoker Substance Use Type: None - Medications Home Medications: Home Medications Medication Instructions Recorded Confirmed Last Taken Type Gabapentin 300 mg PO TID #42 01/30/17 02/01/17 Unknown Rx Insulin Regular, Human See Protocol [facility] 01/30/17 02/01/17 Unknown History Lantus Solostar 25 units [facility] #5 01/30/17 02/01/17 Unknown Rx metFORMIN 1,000 mg PO BID #28 01/30/17 02/01/17 Unknown Rx Mirtazapine [Remeron] 30 mg PO DAILY 02/01/17 02/01/17 Unknown History glipiZIDE [Glucotrol] 2.5 mg PO BID 02/01/17 02/01/17 Unknown History ED Physical Exam - General Limitations: No Limitations General appearance: alert, in no apparent distress, cachectic - Head Head exam: Present: atraumatic, normocephalic - Eye Eye exam: Present: normal appearance. Absent: scleral icterus, conjunctival injection - ENT ENT exam: Present: mucous membranes moist - Neck Neck exam: Present: normal inspection - Respiratory Respiratory exam: Present: normal lung sounds bilaterally. Absent: respiratory distress, wheezes, rales - Cardiovascular Cardiovascular Exam: Present: regular rate, normal rhythm. Absent: systolic murmur, diastolic murmur, rubs, gallop - GI/Abdominal GI/Abdominal exam: Present: soft, normal bowel sounds - Rectal Rectal exam: Present: deferred - Extremities Exam Extremities exam: Present: normal inspection - Back Exam Back exam: Present: normal inspection - Neurological Exam Neurological exam: Present: alert, oriented X3 - Psychiatric Psychiatric exam: Present: normal affect, normal mood - Skin Skin exam: Present: warm, dry, intact, normal color. Absent: rash ED Course Vital Signs 02/10/17 02/10/17 02/10/17 09:14 10:01 10:05 Temperature 97.7 F 98.5 F Pulse Rate 56 L 49 L Respiratory 18 18 20 Rate Blood Pressure 151/90 Blood Pressure 139/81 [Left] O2 Sat by Pulse 98 98 98 Oximetry ED Medical Decision Making - Lab Data Result diagrams: 02/10/17 09:22 02/10/17 09:22 Laboratory Results - last 24 hr 02/10/17 02/10/17 02/10/17 09:16 09:22 09:22 WBC 10.3 RBC 4.58 Hgb 14.4 Hct 43.9 MCV 96 H MCH 31 MCHC 33 RDW 13.8 Plt Count 247 Lymph % (Auto) 9.1 L [place] % (Auto) 7.2 Eos % (Auto) 0.6 Baso % (Auto) 0.3 Lymph # 0.9 L [place] # 0.7 Eos # 0.1 Baso # 0.0 Seg Neutrophils % 82.8 H Seg Neutrophils # 8.5 H Sodium 141 Potassium 3.9 Chloride 98.5 Carbon Dioxide 32 H Anion Gap 14 BUN 9 Creatinine 0.7 L Estimated GFR > 60 BUN/Creatinine Ratio 12.85 Glucose 310 H POC Glucose 278 H Calcium 8.6 Laboratory Results - last 24 hr 02/10/17 02/10/17 02/10/17 09:16 09:22 09:22 WBC 10.3 RBC 4.58 Hgb 14.4 Hct 43.9 MCV 96 H MCH 31 MCHC 33 RDW 13.8 Plt Count 247 Lymph % (Auto) 9.1 L [place] % (Auto) 7.2 Eos % (Auto) 0.6 Baso % (Auto) 0.3 Lymph # 0.9 L [place] # 0.7 Eos # 0.1 Baso # 0.0 Seg Neutrophils % 82.8 H Seg Neutrophils # 8.5 H Sodium 141 Potassium 3.9 Chloride 98.5 Carbon Dioxide 32 H Anion Gap 14 BUN 9 Creatinine 0.7 L Estimated GFR > 60 BUN/Creatinine Ratio 12.85 Glucose 310 H POC Glucose 278 H Calcium 8.6 Urine Color Urine Turbidity Urine pH Ur Specific [place] Urine Protein Urine Glucose (UA) Urine Ketones Urine Blood Urine Nitrite Urine Bilirubin Urine Urobilinogen Ur Leukocyte Esterase Urine WBC (Auto) Urine RBC (Auto) Urine Mucus 02/10/17 10:11 WBC RBC Hgb Hct MCV MCH MCHC RDW Plt Count Lymph % (Auto) [place] % (Auto) Eos % (Auto) Baso % (Auto) Lymph # [place] # Eos # Baso # Seg Neutrophils % Seg Neutrophils # Sodium Potassium Chloride Carbon Dioxide Anion Gap BUN Creatinine Estimated GFR BUN/Creatinine Ratio Glucose POC Glucose Calcium Urine Color Yellow Urine Turbidity Clear Urine pH 6.0 Ur Specific [place] 1.022 Urine Protein <15 mg/dl Urine Glucose (UA) >=500 Urine Ketones 20 Urine Blood Neg Urine Nitrite Neg Urine Bilirubin Neg Urine Urobilinogen 2.0 Ur Leukocyte Esterase Neg Urine WBC (Auto) 1.0 Urine RBC (Auto) 2.0 Urine Mucus Few - Medical Decision Making 51-year-old male here with complaint of elevated blood sugars unable to obtain medications. His initial blood sugars in the 300s. Plenty of IV fluids and pain medication plan to check UA for flank pain. No history of kidney stones. He has some mild left flank/back pain. Patient with known history of methadone and opiate abuse. He continues to complain of pain. His urine is clean. His blood sugar is below 300 after IV fluids. Case management evaluated him and gave him resources for follow-up. Plan to discharge home. Portions of this chart were dictated with dictation software. There may be dictation errors contained within this note. Critical care attestation.: If time is entered above; I have spent that time in minutes in the direct care of this critically ill patient, excluding procedure time. ED Disposition Clinical Impression: Hyperglycemia Disposition: DC-01 TO HOME OR SELFCARE Is pt being admited?: No Condition: Stable Instructions: Diabetic Hyperglycemia (ED) Additional Instructions: Please follow-up with the resources that were provided Referrals: PRIMARY CARE [Primary Care Provider] - 3-5 Days
[2017-02-10] MEDS ORDERED: ZOFRAN IV ONE (10:21)
[2017-02-10 10:36] LABS: Bilirubin,Urine NEG (Negative); Blood,Urine NEG (Negative); Ketones,Urine 20 mg/dL (Negative); Leukocyte Esterase,Urine NEG (Negative); Mucus,Urine FEW /HPF; Nitrite,Urine NEG (Negative); Protein,Urine <15 mg/dL mg/dL (Negative)
[2017-02-10 13:47] VITALS: BP 149/84
== END 2017-02-10 12:30 | disposition home or self-care (01) ==
LOC: ED 09:03
DX: E11.65 Type 2 diabetes mellitus with hyperglycemia (principal); I10 Essential (primary) hypertension; E11.40 Type 2 diabetes mellitus with diabetic neuropathy, unspecified; F17.210 Nicotine dependence, cigarettes, uncomplicated; Z79.4 Long term (current) use of insulin
CPT/HCPCS: 36415; 80048; 81001; 82962; 85025; 96361; 96374; 96375; 99283; J2270; J2405; J7030

== ENCOUNTER 2017-08-17 12:59 | Inpatient (IN) | payer OTHER ==
[2017-08-17 13:50] LABS: Basophils % (Auto) 0.2 % (0.0-1.8); Eosinophils % (Auto) 0.2 % (0.0-4.3); Hematocrit 35.8 % (35.5-45.6); Hemoglobin 11.8 gm/dl (11.8-15.2); Lymphocytes % (Auto) 16.9 % (13.4-35.0); Mean Corpuscular HGB Conc 33 % (32-34); Mean Corpuscular Hemoglobin 31 pg (28-32); Mean Corpuscular Volume 93 fl (84-94); Monocytes # (Auto) 0.3 K/mm3 (0.0-0.8); Monocytes % (Auto) 4.7 % (0.0-7.3); Platelet Count 242 K/mm3 (140-440); Red Blood Count 3.85 M/mm3 (3.65-5.03); Red Cell Distribution Width 15.1 % (13.2-15.2)
--- NOTE | 2017-08-17 14:24 | XRay Report ---
AP CHEST: HISTORY: Chest pain, pedal edema The lungs are hyperinflated suggesting emphysema. No evidence for pneumonia, pleural effusion or pneumothorax. Heart and mediastinal structures are within normal limits. The bony structures are grossly intact. IMPRESSION: Hypoinflated lungs. No acute process. No significant change since 02/01/17.
[2017-08-17 14:36] LABS: BUN/Creatinine Ratio 18; Blood Urea Nitrogen 21 mg/dL (9-20); Calcium 6.8 mg/dL (8.4-10.2); Hemolysis Index 16
--- NOTE | 2017-08-17 14:39 | Emergency Department Report ---
ED General Adult HPI - General Chief complaint: Extremity Problem,Nontraumatic Stated complaint: BLE PAIN/SWELLING Time Seen by Provider: 08/17/17 14:02 Source: patient Mode of arrival: Wheelchair Limitations: No Limitations - History of Present Illness Initial comments: This is a homeless 52-year-old gentleman with a history of diabetes who has not taken any medications in at least 2 weeks who presents to the emergency room with a two-week history of swelling of the lower extremities bilaterally from the knees down. States that he has been living with a friend but is no longer doing so. He denies any kind of shortness of breath or chest pain but he admits to some occasional diarrhea. States that he has had this problem before with his lower extremities and he has had a workup done for blood clots in the past and it was negative. He reports that both of his lower extremities also feel very cold to touch, and they are so heavy and he cannot walk upstairs. He reports that he used 260 pounds but now is only about 114 pounds. The patient reports that he doesn't have enough money to get his medicines and has had difficulty affording "good food". The patient is very cachectic but is not short of breath. He also has a history of depression and anxiety as well as hypertension in addition to his diabetes and peripheral neuropathy. He has had his gallbladder removed in the past and has had an unspecified hernia repair. He admits to smoking half a pack a day and he denies any alcohol or illicit drug use. 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 He apparently no longer works in [employer] and suffers from depressive episodes as well as generalized anxiety disorder. -: week(s) (2) Location: lower extremity (bilaterally) Radiation: non-radiation Quality: aching Consistency: constant Worsens with: none Associated Symptoms: weakness Treatments Prior to Arrival: none - Related Data Home Medications Medication Instructions Recorded Confirmed Last Taken Insulin Regular, Human See Protocol [facility] 01/30/17 08/17/17 Unknown Metformin HCl [Glucophage] 1,000 mg PO BID 08/17/17 08/17/17 Unknown Allergies Allergy/AdvReac Type Severity Reaction Status Date / Time No Known Allergies Allergy Verified 08/17/17 13:14 ED Review of Systems ROS: Stated complaint: BLE PAIN/SWELLING Other details as noted in HPI Comment: All other systems reviewed and negative Constitutional: see HPI, weakness Eyes: as per HPI ENT: as per HPI Respiratory: see HPI Cardiovascular: as per HPI Endocrine: see HPI Gastrointestinal: as per HPI Genitourinary: as per HPI Musculoskeletal: as per HPI Skin: as per HPI Neurological: as per HPI Psychiatric: as per HPI Hematological/Lymphatic: as per HPI ED Past Medical Hx - Past Medical History Previous Medical History?: Yes Hx Hypertension: Yes Hx Congestive Heart Failure: No Hx Diabetes: Yes Hx Psychiatric Treatment: Yes (Anxiety) Hx Asthma: No Hx COPD: No Hx HIV: No Additional medical history: neuropathy - Surgical History Past Surgical History?: Yes Hx Cholecystectomy: Yes Additional Surgical History: hernia - Social History Smoking Status: Current Every Day Smoker Substance Use Type: None - Medications Home Medications: Home Medications Medication Instructions Recorded Confirmed Last Taken Type Insulin Regular, Human See Protocol [facility] 01/30/17 08/17/17 Unknown History Metformin HCl [Glucophage] 1,000 mg PO BID 08/17/17 08/17/17 Unknown History ED Physical Exam - General Limitations: No Limitations General appearance: alert, in no apparent distress, other (thin cachectic male with significant muscle wasting) - Head Head exam: Present: atraumatic, normocephalic, normal inspection - Eye Eye exam: Present: normal appearance, PERRL, EOMI - ENT ENT exam: Present: normal exam - Neck Neck exam: Present: normal inspection - Respiratory Respiratory exam: Present: normal lung sounds bilaterally. Absent: respiratory distress, wheezes, rales, rhonchi, chest wall tenderness, accessory muscle use - Cardiovascular Cardiovascular Exam: Present: bradycardia, normal heart sounds - GI/Abdominal GI/Abdominal exam: Present: soft, normal bowel sounds. Absent: tenderness - Extremities Exam Extremities exam: Present: full ROM, normal capillary refill, pedal edema ( bilaterally, pitting edema noted to the knees 3+.) - Back Exam Back exam: Present: normal inspection, full ROM - Neurological Exam Neurological exam: Present: alert, oriented X3, CN II-XII intact - Psychiatric Psychiatric exam: Present: depressed, anxious - Skin Skin exam: Present: warm, dry ED Course Vital Signs 08/17/17 08/17/17 13:08 14:58 Temperature 97.4 F L Pulse Rate 55 L 78 Respiratory 16 18 Rate Blood Pressure 117/75 Blood Pressure 115/74 [Right] O2 Sat by Pulse 97 98 Oximetry - Reevaluation(s) Reevaluation #1: 08/17/17 14:42 The patient appears significantly malnourished. Coupled with the fact that he is homeless and has not had his medications, it is likely that he has had an exacerbation of his chronic conditions. Lab results are still pending. 08/17/17 19:27 The patient has elevated LFTs, low protein, and his lower extremity Dopplers for DVT are still pending. I did speak with the hospitalist and we will need to go ahead and admit the patient at this time. The patient does suffer from severe malnutrition and failure to thrive. His BNP was also elevated to over 2000. It is likely that he also has a component of CHF involved. Coupled with hypoalbuminemia and probable congestive heart failure, his propensity to develop edema is heightened. ED Medical Decision Making - Lab Data Result diagrams: 08/17/17 13:25 08/17/17 15:23 Critical care attestation.: If time is entered above; I have spent that time in minutes in the direct care of this critically ill patient, excluding procedure time. ED Disposition Clinical Impression: Hepatitis, Hypoalbuminemia, Failure to thrive in adult Edema Qualifiers: Edema type: due to malnutrition Malnutrition edema type: unspecified malnutrition type Qualified Code(s): E43 - Unspecified severe protein-calorie malnutrition CHF (congestive heart failure) Qualifiers: Heart failure type: other Qualified Code(s): I50.9 - Heart failure, unspecified Disposition: OP ADMIT IP TO THIS HOSP Is pt being admited?: Yes Does the pt Need Aspirin: No Condition: Stable
[2017-08-17] MEDS ORDERED: LASIX IV ONE (15:06)
[2017-08-17] MEDS ORDERED: ZOFRAN IV ONE (15:06)
[2017-08-17] MEDS ORDERED: MORPHINE IV ONE (15:06)
[2017-08-17 15:13] LABS: Alanine Aminotransferase 129 units/L (7-56); Albumin 2.1 g/dL (3.9-5); BUN/Creatinine Ratio 19; Blood Urea Nitrogen 21 mg/dL (9-20); Calcium 6.5 mg/dL (8.4-10.2); Hemolysis Index 25
[2017-08-17] MEDS ORDERED: MORPHINE ONE (15:26)
[2017-08-17 15:54] LABS: Alanine Aminotransferase 123 units/L (7-56); BUN/Creatinine Ratio 19; Blood Urea Nitrogen 21 mg/dL (9-20); Calcium 6.5 mg/dL (8.4-10.2); Hemolysis Index 7
[2017-08-17] MEDS ORDERED: K-DUR PO ONE (15:58)
[2017-08-17 18:05] LABS: Bilirubin,Urine NEG (Negative); Blood,Urine NEG (Negative); Color,Urine Straw (Yellow); Mucus,Urine FEW /HPF; Protein,Urine <15 mg/dL mg/dL (Negative); RBC,Urine < 1.0 /HPF (0.0-6.0); Urobilinogen,Urine < 2.0 mg/dL (<2.0)
--- NOTE | 2017-08-17 21:29 | History and Physical Report ---
History of Present Illness Date of examination: 08/17/17 Date of admission: 08/17/17 Chief complaint: CC Swelling of both legs History of present illness: History of Present Illness 52-year-old gentleman with a history of diabetes who has not taken any medications in at least 2 weeks presents to the emergency room with a two-week history of swelling of the lower extremities bilaterally from the knees down. States that he has been living with a friend but is no longer doing so. He is not taking any medications b/c of financial reasons.Has not been eating well.Some sob present.No fever or chills Past Medical History Previous Medical History?: Yes Hx Hypertension: Yes Hx Congestive Heart Failure: No Hx Diabetes: Yes Hx Psychiatric Treatment: Yes (Anxiety) Hx Asthma: No Hx COPD: No Hx HIV: No Additional medical history: neuropathy - Surgical History Past Surgical History?: Yes Hx Cholecystectomy: Yes Additional Surgical History: hernia - Social History Smoking Status: Current Every Day Smoker Substance Use Type: None Family History Htn - Medications Home Medications: Home Medications Medication Instructions Recorded Confirmed Last Taken Type Insulin Regular, Human See Protocol [facility] 01/30/17 08/17/17 Unknown History Metformin HCl [Glucophage] 1,000 mg PO BID 08/17/17 08/17/17 Unknown History Medications and Allergies Allergies Allergy/AdvReac Type Severity Reaction Status Date / Time No Known Allergies Allergy Verified 08/17/17 13:14 Home Medications Medication Instructions Recorded Confirmed Last Taken Type Insulin Regular, Human See Protocol [facility] 01/30/17 08/17/17 Unknown History Metformin HCl [Glucophage] 1,000 mg PO BID 08/17/17 08/17/17 Unknown History Review of Systems Constitutional: no weight loss, no weight gain, no fever, no chills Ears, nose, mouth and throat: no hoarseness, no sore throat, no swelling in mouth, no swelling in throat Cardiovascular: edema, shortness of breath, dyspnea on exertion, no chest pain, no orthopnea, no palpitations, no rapid/irregular heart beat Respiratory: shortness of breath, dyspnea on exertion, no cough, no cough with sputum, no excessive sputum, no hemoptysis Gastrointestinal: no abdominal pain, no nausea, no vomiting, no diarrhea, no constipation Genitourinary Male: no dysuria, no hematuria, no flank pain, no discharge, no urinary frequency, no urinary hesitancy Rectal: no pain Musculoskeletal: no neck stiffness, no neck pain, no shooting arm pain, no arm numbness/tingling, no low back pain, no shooting leg pain, no leg numbness/ tingling, no redness of joints Integumentary: no rash, no pruritis, no redness, no sores, no wounds, no jaundice Neurological: no head injury, no transient paralysis, no paralysis, no weakness , no parathesias, no seizures, no syncope, no tremors Psychiatric: no anxiety, no memory loss, no change in sleep habits, no sleep disturbances, no insomnia Endocrine: polydipsia, polyuria, no cold intolerance, no heat intolerance, no polyphagia, no excessive thirst Hematologic/Lymphatic: no easy bruising, no easy bleeding Allergic/Immunologic: no urticaria, no allergic rhinitis, no wheezing Exam - Constitutional Vitals: Temp Pulse Resp BP Pulse Ox 97.4 F L 74 16 106/53 97 08/17/17 13:08 08/17/17 20:25 08/17/17 20:25 08/17/17 20:25 08/17/17 20:25 General appearance: Present: no acute distress, well-nourished - EENT Eyes: Present: PERRL ENT: hearing intact, clear oral mucosa - Neck Neck: Present: supple, normal ROM - Respiratory Respiratory effort: normal Respiratory: bilateral: CTA - Cardiovascular Heart rate: 80 Rhythm: regular Heart Sounds: Present: S1 & S2. Absent: rub, click - Extremities Extremities: no ischemia, pulses intact, pulses symmetrical Extremity abnormal: edema (3 plus -pitting) Peripheral Pulses: within normal limits - Abdominal General gastrointestinal: Present: soft, non-tender, non-distended, normal bowel sounds Male genitourinary: Present: normal - Rectal Rectal Exam: deferred - Integumentary Integumentary: Present: clear, warm, dry - Musculoskeletal Musculoskeletal: gait normal, strength equal bilaterally - Psychiatric Psychiatric: appropriate mood/affect, intact judgment & insight - Neurologic Neurologic: CNII-XII intact, moves all extremities - Allied Health Allied health notes reviewed: nursing, case management Results - Labs CBC & Chem 7: 08/17/17 13:25 08/17/17 15:23 Labs: Laboratory Last Values WBC 6.1 K/mm3 (4.5-11.0) 08/17/17 13:25 RBC 3.85 M/mm3 (3.65-5.03) 08/17/17 13:25 Hgb 11.8 gm/dl (11.8-15.2) 08/17/17 13:25 Hct 35.8 % (35.5-45.6) 08/17/17 13:25 MCV 93 fl (84-94) 08/17/17 13:25 MCH 31 pg (28-32) 08/17/17 13:25 MCHC 33 % (32-34) 08/17/17 13:25 RDW 15.1 % (13.2-15.2) 08/17/17 13:25 Plt Count 242 K/mm3 (140-440) 08/17/17 13:25 Lymph % (Auto) 16.9 % (13.4-35.0) 08/17/17 13:25 [place] % (Auto) 4.7 % (0.0-7.3) 08/17/17 13:25 Eos % (Auto) 0.2 % (0.0-4.3) 08/17/17 13:25 Baso % (Auto) 0.2 % (0.0-1.8) 08/17/17 13:25 Lymph # 1.0 K/mm3 (1.2-5.4) L 08/17/17 13:25 [place] # 0.3 K/mm3 (0.0-0.8) 08/17/17 13:25 Eos # 0.0 K/mm3 (0.0-0.4) 08/17/17 13:25 Baso # 0.0 K/mm3 (0.0-0.1) 08/17/17 13:25 Seg Neutrophils % 78.0 % (40.0-70.0) H 08/17/17 13:25 Seg Neutrophils # 4.8 K/mm3 (1.8-7.7) 08/17/17 13:25 Sodium 140 mmol/L (137-145) 08/17/17 15:23 Potassium 2.6 mmol/L (3.6-5.0) L* 08/17/17 15:23 Chloride 103.2 mmol/L (98-107) 08/17/17 15:23 Carbon Dioxide 24 mmol/L (22-30) 08/17/17 15:23 Anion Gap 15 mmol/L 08/17/17 15:23 BUN 21 mg/dL (9-20) H 08/17/17 15:23 Creatinine 1.1 mg/dL (0.8-1.5) 08/17/17 15:23 Estimated GFR > 60 ml/min 08/17/17 15:23 BUN/Creatinine Ratio 19 % 08/17/17 15:23 Glucose 292 mg/dL (75-100) H 08/17/17 15:23 POC Glucose 273 (70-105) H 08/17/17 13:10 Calcium 6.5 mg/dL (8.4-10.2) L 08/17/17 15:23 Total Bilirubin < 0.20 mg/dL (0.1-1.2) 08/17/17 15:23 AST 279 units/L (5-40) H 08/17/17 15:23 ALT 123 units/L (7-56) H 08/17/17 15:23 Alkaline Phosphatase 619 units/L (35-129) H 08/17/17 15:23 NT-Pro-B Natriuret Pep 2428 pg/mL (0-900) H 08/17/17 13:25 Total Protein 4.4 g/dL (6.3-8.2) L 08/17/17 15:23 Albumin 2.0 g/dL (3.9-5) L 08/17/17 15:23 Albumin/Globulin Ratio 0.8 % 08/17/17 15:23 Urine Color Straw (Yellow) 08/17/17 17:45 Urine Turbidity Clear (Clear) 08/17/17 17:45 Urine pH 7.0 (5.0-7.0) 08/17/17 17:45 Ur Specific [place] 1.006 (1.003-1.030) 08/17/17 17:45 Urine Protein <15 mg/dl mg/dL (Negative) 08/17/17 17:45 Urine Glucose (UA) 50 mg/dL (Negative) 08/17/17 17:45 Urine Ketones Neg mg/dL (Negative) 08/17/17 17:45 Urine Blood Neg (Negative) 08/17/17 17:45 Urine Nitrite Neg (Negative) 03/08/18 17:45 Urine Bilirubin Neg (Negative) 08/17/17 17:45 Urine Urobilinogen < 2.0 mg/dL (<2.0) 08/17/17 17:45 Ur Leukocyte Esterase Neg (Negative) 08/17/17 17:45 Urine WBC (Auto) 1.0 /HPF (0.0-6.0) 08/17/17 17:45 Urine RBC (Auto) < 1.0 /HPF (0.0-6.0) 08/17/17 17:45 Urine Mucus Few /HPF 08/17/17 17:45 - Imaging and Cardiology EKG: report reviewed Chest x-ray: report reviewed (NAF) Assessment and Plan Advance Directives: Yes (Full code) VTE prophylaxis?: Chemical Plan of care discussed with patient/family: Yes - Patient Problems (1) Uncontrolled diabetes mellitus Current Visit: Yes Status: Acute Qualifiers: Diabetes mellitus type: type 2 Diabetes mellitus complication status: with hyperglycemia Plan to address problem: Very poorly controlled DM.Noncompliance is a Issue.Will start him on Novolin 70/ 30 20 units bid +coverage and increase dosage as necessary.Relion ([id number] ) to be prescribed at discharge and follow up at [facility].A1c is 12.2 (2) Failure to thrive in adult Current Visit: Yes Status: Chronic Plan to address problem: Needs longterm and nutrition..CM consulted (3) Hypoalbuminemia Current Visit: Yes Status: Acute Plan to address problem: Severe.Dietitian consult requested (4) HTN (hypertension) Current Visit: No Status: Chronic Qualifiers: Hypertension type: essential hypertension Qualified Code(s): I10 - Essential (primary) hypertension Plan to address problem: On Coreg (5) Severe malnutrition Current Visit: Yes Status: Chronic Plan to address problem: Dietitian consult (6) Hypokalemia Current Visit: Yes Status: Acute Plan to address problem: Supplemented (7) CHF (congestive heart failure) Current Visit: Yes Status: Acute Qualifiers: Heart failure type: other Qualified Code(s): I50.9 - Heart failure, unspecified Plan to address problem: Echo ordered Initiatedon Lasix.Peripheral edema multifactorial Low Albumin and CHF (8) Transaminitis Current Visit: Yes Status: Acute Plan to address problem: R/o Hepatitis Passive congestion of Liver?? GI consult requested Early cirrhosis CT abd ordered (9) DVT prophylaxis Current Visit: No Status: Acute Plan to address problem: Heparin SQ
[2017-08-17] MEDS ORDERED: SODIUM CHLORIDE FLUSH SYRINGE 10 ML IV PRN (21:32)
[2017-08-17] MEDS ORDERED: REGLAN IV PRN (21:32)
[2017-08-17] MEDS ORDERED: TYLENOL PO PRN (21:32)
[2017-08-17] MEDS ORDERED: MILK OF MAGNESIA PO PRN (21:32)
[2017-08-17] MEDS ORDERED: MORPHINE IV PRN (21:32)
[2017-08-17] MEDS ORDERED: ZOFRAN IV PRN (21:32)
[2017-08-17] MEDS ORDERED: HumaLOG SUB-Q ONE (21:37)
[2017-08-17] MEDS ORDERED: HEPARIN ONE (22:07)
[2017-08-17] MEDS: HEPARIN SUB-Q SCH (22:12)
[2017-08-17 22:44] LABS: Hepatitis A Antibody IgM Non-Reactive (NonReactive); Hepatitis B Core IgM Non-Reactive (NonReactive); Hepatitis B Surface Antigen Non-Reactive (Negative); Hepatitis C Virus Antibody Non-Reactive (NonReactive)
[2017-08-18] MEDS ORDERED: [UNRECOGNIZED DRUG - OTHER] IV ONE
[2017-08-18] MEDS ORDERED: NACL 0.9% IV ONE
[2017-08-18] MEDS ORDERED: HumaLOG SUB-Q ONE
[2017-08-18] MEDS ORDERED: KCL 40 MEQ in NACL 0.9% 500 ML 500 ML IV ONE
[2017-08-18] MEDS: K-DUR PO SCH ×3 (00:04→13:15)
[2017-08-18] MEDS: PERCOCET 5/325 PO PRN ×3 (00:04→20:17)
[2017-08-18] MEDS: PEPCID IV SCH ×3 (00:06→22:32)
[2017-08-18] MEDS: SODIUM CHLORIDE FLUSH SYRINGE 10 ML IV SCH ×3 (00:06→22:32)
[2017-08-18 06:18] LABS: Basophils % (Auto) 0.2 % (0.0-1.8); Eosinophils % (Auto) 0.3 % (0.0-4.3); Hematocrit 42.1 % (35.5-45.6); Hemoglobin 13.8 gm/dl (11.8-15.2); Lymphocytes # (Auto) 1.8 K/mm3 (1.2-5.4); Mean Corpuscular HGB Conc 33 % (32-34); Mean Corpuscular Hemoglobin 30 pg (28-32); Mean Corpuscular Volume 92 fl (84-94); Monocytes # (Auto) 0.2 K/mm3 (0.0-0.8); Monocytes % (Auto) 2.2 % (0.0-7.3); Platelet Count 267 K/mm3 (140-440); Red Blood Count 4.57 M/mm3 (3.65-5.03)
[2017-08-18 06:36] LABS: Alanine Aminotransferase 102 units/L (7-56); Albumin 2.4 g/dL (3.9-5); BUN/Creatinine Ratio 18; Blood Urea Nitrogen 20 mg/dL (9-20); Calcium 6.8 mg/dL (8.4-10.2); Hemolysis Index 3
[2017-08-18] MEDS: LASIX IV SCH ×2 (06:41→20:18)
[2017-08-18] MEDS ORDERED: D50W (25GM) Syringe IV ONE (06:53)
[2017-08-18] MEDS ORDERED: D50W (25GM) Syringe IV PRN ×2 (06:58→07:40)
--- NOTE | 2017-08-18 07:38 | Progress Note ---
Assessment and Plan Assessment and plan: 52-year-old gentleman with a history of diabetes who has not taken any medications in at least 2 weeks presents to the emergency room with a two-week history of swelling of the lower extremities bilaterally from the knees down. States that he has been living with a friend but is no longer doing so. He is not taking any medications b/c of financial reasons.Has not been eating well. denies etoh use or abuse Transaminitis -may be related to malnutrition Hepatitis serology negative GI consult requested -fup CT A/P Uncontrolled diabetes mellitus Very poorly controlled DM.Noncompliance is a Issue continue ([id number]) to be prescribed at discharge and follow up at [facility].A1c is 12.2 -add SSI Failure to thrive in adult Needs custodial placement and improved nutrition..CM consulted Hypoalbuminemia likely due to severe malnutrition HTN (hypertension) On Coreg Severe malnutrition Dietitian consult Hypokalemia Supplemented, check mg and phos LE edema -likely due to low albumin CHF (congestive heart failure)? obtain VL echo, and continue diuretics FLuid overload Echo ordered Initiatedon Lasix.Peripheral edema multifactorial Low Albumin and CHF? -diuresis Hypokalemia -replete IV and PO DVT prophylaxis Current Visit: No Status: Acute Plan to address problem: Heparin SQ History Interval history: c.o anxiety c/o bilat LE swelling, no sob, no cp, no fever admits to poor nutrition , and is homeless denies etoh abuse, denies recent drug abuse, is on a methadone program from of opioid dependence Hospitalist Physical - Constitutional Vitals: Temp Pulse Resp BP Pulse Ox 98.2 F 97 H 18 111/76 94 08/18/17 01:00 08/18/17 06:17 08/18/17 01:00 08/18/17 01:00 08/18/17 01:00 General appearance: Present: no acute distress, cachectic - EENT Eyes: Present: PERRL ENT: hearing intact - Neck Neck: Present: supple - Respiratory Respiratory effort: normal Respiratory: bilateral: CTA - Cardiovascular Rhythm: regular Heart Sounds: Present: S1 & S2 - Extremities Extremity abnormal: edema (bilateral LE, 3 plus and pitting) Peripheral Pulses: within normal limits - Abdominal General gastrointestinal: soft, non-tender - Integumentary Integumentary: Present: clear, warm, erythema (left leg, cw stasis dermatitis) - Psychiatric Psychiatric: appropriate mood/affect, intact judgment & insight - Neurologic Neurologic: CNII-XII intact, moves all extremities Results - Labs CBC & Chem 7: 08/18/17 05:45 08/18/17 05:45 Labs: Laboratory Last Values WBC 11.0 K/mm3 (4.5-11.0) 08/18/17 05:45 RBC 4.57 M/mm3 (3.65-5.03) 08/18/17 05:45 Hgb 13.8 gm/dl (11.8-15.2) 08/18/17 05:45 Hct 42.1 % (35.5-45.6) D 08/18/17 05:45 MCV 92 fl (84-94) 08/18/17 05:45 MCH 30 pg (28-32) 08/18/17 05:45 MCHC 33 % (32-34) 08/18/17 05:45 RDW 15.0 % (13.2-15.2) 08/18/17 05:45 Plt Count 267 K/mm3 (140-440) 08/18/17 05:45 Lymph % (Auto) 16.0 % (13.4-35.0) 08/18/17 05:45 [place] % (Auto) 2.2 % (0.0-7.3) 08/18/17 05:45 Eos % (Auto) 0.3 % (0.0-4.3) 08/18/17 05:45 Baso % (Auto) 0.2 % (0.0-1.8) 08/18/17 05:45 Lymph # 1.8 K/mm3 (1.2-5.4) 08/18/17 05:45 [place] # 0.2 K/mm3 (0.0-0.8) 08/18/17 05:45 Eos # 0.0 K/mm3 (0.0-0.4) 08/18/17 05:45 Baso # 0.0 K/mm3 (0.0-0.1) 08/18/17 05:45 Seg Neutrophils % 81.3 % (40.0-70.0) H 08/18/17 05:45 Seg Neutrophils # 8.9 K/mm3 (1.8-7.7) H 08/18/17 05:45 Sodium 144 mmol/L (137-145) 08/18/17 05:45 Potassium 2.8 mmol/L (3.6-5.0) L* 08/18/17 05:45 Chloride 105.0 mmol/L (98-107) 08/18/17 05:45 Carbon Dioxide 24 mmol/L (22-30) 08/18/17 05:45 Anion Gap 18 mmol/L 08/18/17 05:45 BUN 20 mg/dL (9-20) 08/18/17 05:45 Creatinine 1.1 mg/dL (0.8-1.5) 08/18/17 05:45 Estimated GFR > 60 ml/min 08/18/17 05:45 BUN/Creatinine Ratio 18 % 08/18/17 05:45 Glucose 30 mg/dL (75-100) L* 08/18/17 05:45 POC Glucose 208 (70-105) H 08/18/17 06:48 Hemoglobin A1c 12.2 % (4-6) H 08/17/17 13:21 Calcium 6.8 mg/dL (8.4-10.2) L 08/18/17 05:45 Total Bilirubin 0.20 mg/dL (0.1-1.2) 08/18/17 05:45 AST 94 units/L (5-40) H 08/18/17 05:45 ALT 102 units/L (7-56) H 08/18/17 05:45 Alkaline Phosphatase 606 units/L (35-129) H 08/18/17 05:45 NT-Pro-B Natriuret Pep 2428 pg/mL (0-900) H 08/17/17 13:25 Total Protein 5.1 g/dL (6.3-8.2) L 08/18/17 05:45 Albumin 2.4 g/dL (3.9-5) L 08/18/17 05:45 Albumin/Globulin Ratio 0.9 % 08/18/17 05:45 Urine Color Straw (Yellow) 08/17/17 17:45 Urine Turbidity Clear (Clear) 08/17/17 17:45 Urine pH 7.0 (5.0-7.0) 08/17/17 17:45 Ur Specific [place] 1.006 (1.003-1.030) 08/17/17 17:45 Urine Protein <15 mg/dl mg/dL (Negative) 08/17/17 17:45 Urine Glucose (UA) 50 mg/dL (Negative) 08/17/17 17:45 Urine Ketones Neg mg/dL (Negative) 08/17/17 17:45 Urine Blood Neg (Negative) 08/17/17 17:45 Urine Nitrite Neg (Negative) 08/17/17 17:45 Urine Bilirubin Neg (Negative) 08/17/17 17:45 Urine Urobilinogen < 2.0 mg/dL (<2.0) 08/17/17 17:45 Ur Leukocyte Esterase Neg (Negative) 08/17/17 17:45 Urine WBC (Auto) 1.0 /HPF (0.0-6.0) 08/17/17 17:45 Urine RBC (Auto) < 1.0 /HPF (0.0-6.0) 08/17/17 17:45 Urine Mucus Few /HPF 08/17/17 17:45 Hepatitis A IgM Ab Non-reactive (NonReactive) 08/17/17 21:50 Hep Bs Antigen Non-reactive (Negative) 08/17/17 21:50 Hep B Core IgM Ab Non-reactive (NonReactive) 08/17/17 21:50 Hepatitis C Antibody Non-reactive (NonReactive) 08/17/17 21:50
[2017-08-18] MEDS ORDERED: K-DUR PO NR (08:00)
--- NOTE | 2017-08-18 08:00 | Consultation ---
History of Present Illness Consult date: 08/18/17 History of present illness: 52 year old admitted for multiple reasons and complaints. He has been out of his meds for quite some time due to financial reasons. He has been basically homeless too. He has uncontrolled type II DM. He has been losing weight. He denies chest pain or shortness of breath. He was noted to have LE edema and elevated BNP on admission. No previous history of heart failure. No ECG done this admission. Past History Past Medical History: diabetes, hypertension Past Surgical History: cholecystectomy, hernia repair Social history: smoking Family history: CAD, diabetes, hypertension Medications and Allergies Allergies Allergy/AdvReac Type Severity Reaction Status Date / Time No Known Allergies Allergy Verified 08/17/17 13:14 Home Medications Medication Instructions Recorded Confirmed Last Taken Type Insulin Regular, Human See Protocol AL ACHS 01/30/17 08/17/17 Unknown History Metformin HCl [Glucophage] 1,000 mg PO BID 08/17/17 08/17/17 Unknown History Active Meds: Active Medications Acetaminophen (Tylenol) 650 mg PO Q4H PRN PRN Reason: Pain MILD(1-3)/Fever >100.5/CYR Carvedilol (Coreg) 6.25 mg PO BID [facility] Dextrose (D50w (25gm) Syringe) 50 ml IV PRN PRN PRN Reason: Hypoglycemia Last Admin: 08/18/17 07:04 Dose: 50 ml Famotidine (Pepcid) 20 mg IV BID [facility] Last Admin: 08/18/17 00:06 Dose: 20 mg Furosemide (Lasix) 40 mg IV 0600,1800 [facility] Last Admin: 08/18/17 06:41 Dose: 40 mg Heparin Sodium (Porcine) (Heparin) 5,000 unit SUB-Q Q12HR [facility] Last Admin: 08/17/17 22:12 Dose: 5,000 unit Potassium Chloride 50 meq/ (Sodium Chloride) 525 mls @ 125 mls/hr IV DIRECT [facility] Stop: 08/18/17 12:41 Insulin Human Isoph/Insulin Regular (Novolin 70/30) 20 unit SUB-Q BIDDIAB [facility] Insulin Human Lispro (Humalog) 0 unit SUB-Q ACHS [facility]; Protocol Magnesium Hydroxide (Milk Of Magnesia) 30 ml PO Q4H PRN PRN Reason: Constipation Metoclopramide HCl (Reglan) 10 mg IV Q6H PRN PRN Reason: Nausea And Vomiting Morphine Sulfate (Morphine) 2 mg IV Q4H PRN PRN Reason: Pain, Moderate (4-6) Ondansetron HCl (Zofran) 4 mg IV Q8H PRN PRN Reason: Nausea And Vomiting Oxycodone/Acetaminophen (Percocet 5/325) 1 tab PO Q6H PRN PRN Reason: Pain, Moderate (4-6) Last Admin: 08/18/17 06:40 Dose: 1 tab Potassium Chloride (K-Dur) 40 meq PO Q4H [facility] Stop: 08/18/17 08:01 Last Admin: 08/18/17 03:48 Dose: 40 meq Potassium Chloride (K-Dur) 20 meq PO Q12H [facility] Potassium Chloride (K-Dur) 40 meq PO ONCE ONE Stop: 08/18/17 07:44 Sodium Chloride (Sodium Chloride Flush Syringe 10 Ml) 10 ml IV BID [facility] Last Admin: 08/18/17 00:06 Dose: 10 ml Sodium Chloride (Sodium Chloride Flush Syringe 10 Ml) 10 ml IV PRN PRN PRN Reason: LINE FLUSH Spironolactone (Aldactone) 25 mg PO QDAY [facility] Review of Systems All systems: negative Physical Examination Vital Signs Temp Pulse Resp BP Pulse Ox 97.4 F L 55 L 16 117/75 97 08/17/17 13:08 08/17/17 13:08 08/17/17 13:08 08/17/17 13:08 08/17/17 13:08 General appearance: cachectic Neck: Positive: neck supple. Negative: JVD/HJR Cardiac: Positive: Reg Rate and Rhythm Lungs: Positive: Normal Breath Sounds Neuro: Positive: Grossly Intact Abdomen: Positive: Soft Extremities: Present: +1 Edema Results 08/18/17 05:45 08/18/17 05:45 Cardiac Enzymes 08/17/17 08/17/17 08/18/17 Range/Units 14:46 15:23 05:45 AST 320 H 279 H 94 H (5-40) units/L CBC 08/17/17 08/18/17 Range/Units 13:25 05:45 WBC 6.1 11.0 (4.5-11.0) K/mm3 RBC 3.85 4.57 (3.65-5.03) M/mm3 Hgb 11.8 13.8 (11.8-15.2) gm/dl Hct 35.8 42.1 D (35.5-45.6) % Plt Count 242 267 (140-440) K/mm3 Lymph # 1.0 L 1.8 (1.2-5.4) K/mm3 [place] # 0.3 0.2 (0.0-0.8) K/mm3 Eos # 0.0 0.0 (0.0-0.4) K/mm3 Baso # 0.0 0.0 (0.0-0.1) K/mm3 Comprehensive Metabolic Panel 08/17/17 08/17/17 08/17/17 Range/Units 13:25 14:46 15:23 Sodium 143 142 140 (137-145) mmol/L Potassium 4.2 2.8 L* D 2.6 L* (3.6-5.0) mmol/L Chloride 104.5 102.8 103.2 (98-107) mmol/L Carbon Dioxide 27 26 24 (22-30) mmol/L BUN 21 H 21 H 21 H (9-20) mg/dL Creatinine 1.2 1.1 1.1 (0.8-1.5) mg/dL Glucose 307 H 310 H 292 H (75-100) mg/dL Calcium 6.8 L 6.5 L 6.5 L (8.4-10.2) mg/dL AST 320 H 279 H (5-40) units/L ALT 129 H 123 H (7-56) units/L Alkaline Phosphatase 618 H 619 H (35-129) units/L Total Protein 4.5 L 4.4 L (6.3-8.2) g/dL Albumin 2.1 L 2.0 L (3.9-5) g/dL 08/18/17 Range/Units 05:45 Sodium 144 (137-145) mmol/L Potassium 2.8 L* (3.6-5.0) mmol/L Chloride 105.0 (98-107) mmol/L Carbon Dioxide 24 (22-30) mmol/L BUN 20 (9-20) mg/dL Creatinine 1.1 (0.8-1.5) mg/dL Glucose 30 L* (75-100) mg/dL Calcium 6.8 L (8.4-10.2) mg/dL AST 94 H (5-40) units/L ALT 102 H (7-56) units/L Alkaline Phosphatase 606 H (35-129) units/L Total Protein 5.1 L (6.3-8.2) g/dL Albumin 2.4 L (3.9-5) g/dL Assessment and Plan Uncontrolled type II DM Failure to thrive Edema Hypoalbuminemia Transaminitis Hypokalemia Systemic Hypertension Homelessness Recommendations: Aggressive blood sugar control Blood pressure control Nutrition consult Echocardiogram Further management will depend on LVEF
[2017-08-18] MEDS ORDERED: KCL 50 MEQ in NACL 0.45% 500 ML IV SCH (08:30)
[2017-08-18] MEDS: KCL 10MEQ/100ML 10 MEQ/100 ML BAG IV SCH (09:59)
--- NOTE | 2017-08-18 12:28 | Cat Scan Report ---
CT ABDOMEN AND PELVIS WITHOUT CONTRAST INDICATION: Cirrhosis, portal hypertension. COMPARISON: None similar. FINDINGS: Noncontrast abdomen and pelvis CT performed. LUNG BASES: A 6 mm right lower lobe calcified granuloma incompletely imaged. Anemia not excluded. Mild nonspecific distal esophageal wall prominence/thickening, not excluded for gastroesophageal reflux and/or hiatal hernia, amongst others. ABDOMEN: Please note that sensitivity to detect small visceral lesions is limited due to the absence of intravenous or oral contrast. Cholecystectomy clips. Mild central intrahepatic biliary prominence/dilatation. CBD caliber at the laron hepatis approximately 6-7 mm. Numerous tiny splenic calcified granulomas. Innumerable calcifications also noted throughout pancreas. Pancreatic duct caliber in the head/neck approximately 7 mm, axial image 44, series 2. Adrenals not well-visualized. Nonaneurysmal abdominal aorta with few atherosclerotic calcifications. Grossly unremarkable IVC. Mild bilateral pelviectasis/hydronephrosis with few tiny nonobstructing intrarenal calculi bilaterally noted, approximately 2 mm in size. Few renal cortical hypodensities/cysts as 2.6 cm left interpolar, axial image 45, series 2 also noted. A 0.6 cm right lower renal pole hyperdense/hemorrhagic cyst as well. Diffuse mesenteric and retroperitoneal hypodense edema and/or ascites noted. Lymphadenopathy assessment suboptimal. Nonopacified GI tract evaluation also limited, though small bowel grossly nonobstructive. However, large amount of stool noted throughout the colon and the rectosigmoid, representing constipation. PELVIS: Grossly unremarkable non-opacified urinary bladder. Small prostatic calcifications. Diffuse subcutaneous edema. Mild multilevel lumbar degenerative spurring. CONCLUSION: 1. Diffuse subcutaneous edema as also suspected mesenteric and retroperitoneal hypodense edema/ascites, as described. Mild bilateral hydronephrosis/back pressure also possible in this patient with tiny bilateral intrarenal calculi and renal cysts. 2. Constipation. 3. Various other findings, including old healed granulomatous disease, cholecystectomy and chronic pancreatitis on this limited, unenhanced exam. Thank you for the opportunity to participate in this patient's care.
[2017-08-18] MEDS: ALDACTONE PO SCH (13:16)
[2017-08-18] MEDS: COREG PO SCH ×2 (13:16→22:31)
[2017-08-18] MEDS: HumaLOG SUB-Q SCH ×3 (13:17→23:47)
[2017-08-18] MEDS: HEPARIN SUB-Q SCH ×2 (13:17→22:31)
[2017-08-18] MEDS: ATIVAN PO PRN (20:14)
[2017-08-18] MEDS ORDERED: K-DUR PO SCH (22:00)
[2017-08-18 23:10] LABS: Benzodiazepines Screen,Urine PRESUMPTIVE NEGATIVE; Cannabinoid Screen,Urine PRESUMPTIVE NEGATIVE; Cocaine Screen,Urine PRESUMPTIVE NEGATIVE; Methadone Screen,Urine PRESUMPTIVE NEGATIVE; Opiate Screen,Urine PRESUMPTIVE NEGATIVE
[2017-08-18 23:26] LABS: Amphetamine Screen,Urine PRESUMPTIVE POSITIVE
--- NOTE | 2017-08-18 23:59 | Consultation ---
INDICATION: Increased liver function tests. HISTORY OF PRESENT ILLNESS: The patient is a 52-year-old white male with history of poorly controlled diabetes, who presents for GI, for lower extremity swelling. The patient reports he has been living with a friend and has been homeless. The patient reports no history of liver disease in the past. He admits that he does follow up with doctors regularly. He reports no history of alcohol abuse. Denies any family history of liver disease. The patient was admitted for lower extremity swelling. GI consulted for his increased liver function test. He denies any history of CHF or other specific GI complaints. PAST MEDICAL HISTORY: Diabetes. MEDICATIONS: See chart. ALLERGIES: No known drug allergies. SOCIAL HISTORY: Denies significant alcohol. He is everyday smoker. FAMILY HISTORY: Negative for colon cancer. REVIEW OF SYSTEMS: GENERAL: Reports mild weakness. HEENT: No visual complaints or tinnitus. PULMONARY: Denies shortness of breath, cough or chest pain. GASTROINTESTINAL: Reports no specific complaints. EXTREMITIES: Reports of swelling and discomfort. All points of 13-point review of systems otherwise negative. PHYSICAL EXAMINATION: VITAL SIGNS: Temperature of 98.2, pulse 64, respirations 18, blood pressure 115/76. GENERAL: Fairly thin, disheveled white male in no acute distress. HEENT: Pupils equal, round, reactive to light and accommodation. Extraocular muscles intact. PULMONARY: Clear to auscultation bilaterally. CARDIOVASCULAR: Regular rhythm. S1, S2. ABDOMEN: Soft, positive bowel sounds, soft. SKIN: No obvious rashes. LABORATORY DATA: Pertinent for white count of 11, hemoglobin and hematocrit of 13.8 and 42.1, platelet count of 267. Chem-7 pertinent for sodium of 144, potassium 2.8, chloride 105, CO2 24, BUN and creatinine of 20 and 1.1. AST and ALT of 102 and 70, down from initial of 279 and 123, total bilirubin of 0.2, alkaline phosphatase of 606, down from 619. CT scan showed signs of chronic pancreatitis, but otherwise no other significant GI pathology. ASSESSMENT: A 52-year-old white male with history of diabetes and reported homeless now, recent lower extremity swelling, came in for that complaint with noted increased liver function test. The patient denies a history of liver disease. His acute hepatitis panel is negative. Since being admitted, his liver numbers have improved remarkably. The CT scan only shows signs of chronic pancreatitis. Possible congestion secondary to the heart versus other liver pathology. PLAN: 1. We will get hepatitis related serologies. 2. Follow LFTs. 3. No need for liver biopsy. 4. Cardiac evaluation per Cardiology team. 5. We will follow for now. JOB# [id number] [facility]
[2017-08-19] MEDS: PERCOCET 5/325 PO PRN ×3 (04:37→21:02)
[2017-08-19] MEDS: ATIVAN PO PRN ×3 (04:37→21:02)
[2017-08-19] MEDS: LASIX IV SCH ×2 (06:30→19:18)
[2017-08-19 06:35] LABS: Basophils % (Auto) 0.1 % (0.0-1.8); Eosinophils % (Auto) 0.1 % (0.0-4.3); Hematocrit 39.1 % (35.5-45.6); Hemoglobin 13.3 gm/dl (11.8-15.2); Lymphocytes # (Auto) 1.4 K/mm3 (1.2-5.4); Lymphocytes % (Auto) 11.3 % (13.4-35.0); Mean Corpuscular HGB Conc 34 % (32-34); Mean Corpuscular Hemoglobin 31 pg (28-32); Mean Corpuscular Volume 91 fl (84-94); Monocytes # (Auto) 0.6 K/mm3 (0.0-0.8); Monocytes % (Auto) 4.5 % (0.0-7.3); Platelet Count 191 K/mm3 (140-440); Red Blood Count 4.28 M/mm3 (3.65-5.03); Red Cell Distribution Width 15.1 % (13.2-15.2)
[2017-08-19 06:52] LABS: Alanine Aminotransferase 77 units/L (7-56); Albumin 2.1 g/dL (3.9-5); BUN/Creatinine Ratio 20; Blood Urea Nitrogen 22 mg/dL (9-20); Calcium 7.1 mg/dL (8.4-10.2); Hemolysis Index 4
[2017-08-19] MEDS: HumaLOG SUB-Q SCH ×3 (08:11→18:44)
--- NOTE | 2017-08-19 08:52 | Progress Note ---
Assessment and Plan Assessment and plan: 52-year-old gentleman with a history of diabetes who has not taken any medications in at least 2 weeks presents to the emergency room with a two-week history of swelling of the lower extremities bilaterally from the knees down. States that he has been living with a friend but is no longer doing so. He is not taking any medications b/c of financial reasons.Has not been eating well. denies etoh use or abuse Acute systolic CHF EF of 30% continue diuresiss, optimize meds, add BB and DAYA -for cath on monday -dw cardiology Transaminitis -may be related to malnutrition Hepatitis serology negative GI consult requested -fup CT A/P Uncontrolled diabetes mellitus Very poorly controlled DM.Noncompliance is a Issue continue ([id number]) to be prescribed at discharge and follow up at [facility].A1c is 12.2 -add SSI Failure to thrive in adult Needs penitentiary placement and improved nutrition..CM consulted hypomagnesemia replete PO Hypoalbuminemia likely due to severe malnutrition HTN (hypertension) On Coreg Severe malnutrition Dietitian consult Hypokalemia Supplemented, check mg and phos LE edema -likely due to low albumin and CHF VL echo neg for DVT FLuid overload Initiated on Lasix and aldactone.Peripheral edema multifactorial Low Albumin and CHF -diuresis Hypokalemia -replete IV and PO DVT prophylaxis Current Visit: No Status: Acute Plan to address problem: Heparin SQ History Interval history: c.o anxiety c/o bilat LE swelling and pain, no sob, no cp, no fever admits to poor nutrition , and is homeless denies etoh abuse, denies recent drug abuse, is on a methadone program from of opioid dependence Hospitalist Physical - Physical exam Narrative exam: General appearance: Present: no acute distress, cachectic - EENT Eyes: Present: PERRL ENT: hearing intact - Neck Neck: Present: supple - Respiratory Respiratory effort: normal Respiratory: bilateral: CTA - Cardiovascular Rhythm: regular Heart Sounds: Present: S1 & S2 - Extremities Extremity abnormal: edema (bilateral LE, 3 plus and pitting) Peripheral Pulses: within normal limits - Abdominal General gastrointestinal: soft, non-tender - Integumentary Integumentary: Present: clear, warm, erythema (left leg, cw stasis dermatitis) - Psychiatric Psychiatric: appropriate mood/affect, intact judgment & insight - Neurologic Neurologic: CNII-XII intact, moves all extremities - Constitutional Vitals: Temp Pulse Resp BP Pulse Ox 99.8 F H 100 H 20 102/75 99 08/19/17 04:28 08/19/17 06:00 08/19/17 04:28 08/19/17 04:28 08/19/17 04:28 General appearance: Present: no acute distress, cachectic Results - Labs CBC & Chem 7: 08/19/17 04:36 08/19/17 04:36 Labs: Laboratory Last Values WBC 12.7 K/mm3 (4.5-11.0) H 08/19/17 04:36 RBC 4.28 M/mm3 (3.65-5.03) 08/19/17 04:36 Hgb 13.3 gm/dl (11.8-15.2) 08/19/17 04:36 Hct 39.1 % (35.5-45.6) 08/19/17 04:36 MCV 91 fl (84-94) 08/19/17 04:36 MCH 31 pg (28-32) 08/19/17 04:36 MCHC 34 % (32-34) 08/19/17 04:36 RDW 15.1 % (13.2-15.2) 08/19/17 04:36 Plt Count 191 K/mm3 (140-440) 08/19/17 04:36 Lymph % (Auto) 11.3 % (13.4-35.0) L 08/19/17 04:36 [place] % (Auto) 4.5 % (0.0-7.3) 08/19/17 04:36 Eos % (Auto) 0.1 % (0.0-4.3) 08/19/17 04:36 Baso % (Auto) 0.1 % (0.0-1.8) 08/19/17 04:36 Lymph # 1.4 K/mm3 (1.2-5.4) 08/19/17 04:36 [place] # 0.6 K/mm3 (0.0-0.8) 08/19/17 04:36 Eos # 0.0 K/mm3 (0.0-0.4) 08/19/17 04:36 Baso # 0.0 K/mm3 (0.0-0.1) 08/19/17 04:36 Seg Neutrophils % 84.0 % (40.0-70.0) H 08/19/17 04:36 Seg Neutrophils # 10.7 K/mm3 (1.8-7.7) H 08/19/17 04:36 Sodium 142 mmol/L (137-145) 08/19/17 04:36 Potassium 2.8 mmol/L (3.6-5.0) L* 08/19/17 04:36 Chloride 100.2 mmol/L (98-107) 08/19/17 04:36 Carbon Dioxide 26 mmol/L (22-30) 08/19/17 04:36 Anion Gap 19 mmol/L 08/19/17 04:36 BUN 22 mg/dL (9-20) H 08/19/17 04:36 Creatinine 1.1 mg/dL (0.8-1.5) 08/19/17 04:36 Estimated GFR > 60 ml/min 08/19/17 04:36 BUN/Creatinine Ratio 20 % 08/19/17 04:36 Glucose 28 mg/dL (75-100) L* 08/19/17 04:36 POC Glucose 115 (70-105) H 08/18/17 23:37 Hemoglobin A1c 12.2 % (4-6) H 08/17/17 13:21 Calcium 7.1 mg/dL (8.4-10.2) L 08/19/17 04:36 Phosphorus 2.80 mg/dL (2.5-4.5) 08/19/17 04:36 Magnesium 1.40 mg/dL (1.7-2.3) L 08/19/17 04:36 Ferritin 328.5 ng/mL (13.0-400.0) 08/19/17 04:36 Total Bilirubin 0.20 mg/dL (0.1-1.2) 08/19/17 04:36 AST 53 units/L (5-40) H 08/19/17 04:36 ALT 77 units/L (7-56) H 08/19/17 04:36 Alkaline Phosphatase 469 units/L (35-129) H 08/19/17 04:36 NT-Pro-B Natriuret Pep 2428 pg/mL (0-900) H 08/17/17 13:25 Total Protein 5.0 g/dL (6.3-8.2) L 08/19/17 04:36 Albumin 2.1 g/dL (3.9-5) L 08/19/17 04:36 Albumin/Globulin Ratio 0.7 % 08/19/17 04:36 Urine Color Straw (Yellow) 08/17/17 17:45 Urine Turbidity Clear (Clear) 08/17/17 17:45 Urine pH 7.0 (5.0-7.0) 08/17/17 17:45 Ur Specific [place] 1.006 (1.003-1.030) 08/17/17 17:45 Urine Protein <15 mg/dl mg/dL (Negative) 08/17/17 17:45 Urine Glucose (UA) 50 mg/dL (Negative) 08/17/17 17:45 Urine Ketones Neg mg/dL (Negative) 08/17/17 17:45 Urine Blood Neg (Negative) 08/17/17 17:45 Urine Nitrite Neg (Negative) 08/17/17 17:45 Urine Bilirubin Neg (Negative) 08/17/17 17:45 Urine Urobilinogen < 2.0 mg/dL (<2.0) 08/17/17 17:45 Ur Leukocyte Esterase Neg (Negative) 08/17/17 17:45 Urine WBC (Auto) 1.0 /HPF (0.0-6.0) 08/17/17 17:45 Urine RBC (Auto) < 1.0 /HPF (0.0-6.0) 08/17/17 17:45 Urine Mucus Few /HPF 08/17/17 17:45 Urine Opiates Screen Presumptive negative 08/18/17 Unknown Urine Methadone Screen Presumptive negative 08/18/17 Unknown Ur Barbiturates Screen Presumptive negative 08/18/17 Unknown Ur Phencyclidine Scrn Presumptive negative 08/18/17 Unknown Ur Amphetamines Screen Presumptive positive 08/18/17 Unknown U Benzodiazepines Scrn Presumptive negative 08/18/17 Unknown Urine Cocaine Screen Presumptive negative 08/18/17 Unknown U Marijuana (THC) Screen Presumptive negative 08/18/17 Unknown Drugs of Abuse Note Disclamer 08/18/17 Unknown Hepatitis A IgM Ab Non-reactive (NonReactive) 08/17/17 21:50 Hep Bs Antigen Non-reactive (Negative) 08/17/17 21:50 Hep B Core IgM Ab Non-reactive (NonReactive) 08/17/17 21:50 Hepatitis C Antibody Non-reactive (NonReactive) 08/17/17 21:50
[2017-08-19] MEDS ORDERED: K-DUR PO ONE (10:00)
--- NOTE | 2017-08-19 11:49 | Progress Note ---
Assessment and Plan Newly diagnosed cardiomyopathy with EF 30-35% Uncontrolled type II DM Failure to thrive Edema Hypoalbuminemia Transaminitis Hypokalemia Systemic Hypertension Homelessness Recommendations: Will consider eventual myocardial ischemia evaluation with left and right heart cath once underlying metabolic issues are well controlled. Aggressive blood sugar control Medical therapy for cardiomyopathy Nutrition consult Correct electrolyte abnormalities. Subjective Date of service: 08/19/17 Interval history: No cardiac complaints. Pt had been scheduled for MPI but this was cancelled as he remains profoundly hypokalemic and hypoglycemic. Objective Vital Signs Temp Pulse Resp BP BP Pulse Ox 08/19/17 08:49 98.5 F 74 18 95/68 91 08/19/17 06:00 100 H 08/19/17 04:28 99.8 F H 96 H 20 102/75 99 08/18/17 23:32 98.7 F 20 104/78 08/18/17 22:00 18 08/18/17 19:44 99.1 F 71 20 130/81 98 08/18/17 15:26 98.3 F 61 16 122/82 98 08/18/17 12:26 72 98/72 100 - Physical Examination Neck: Positive: neck supple. Negative: JVD/HJR Cardiac: Positive: Reg Rate and Rhythm. Negative: Systolic Murmur Lungs: Positive: clear to auscultation, Normal Breath Sounds Neuro: Positive: Grossly Intact Abdomen: Positive: Soft, Active Bowel Sounds Extremities: Present: +1 Edema - Labs and Meds Cardiac Enzymes 08/19/17 Range/Units 04:36 AST 53 H (5-40) units/L CBC 08/19/17 Range/Units 04:36 WBC 12.7 H (4.5-11.0) K/mm3 RBC 4.28 (3.65-5.03) M/mm3 Hgb 13.3 (11.8-15.2) gm/dl Hct 39.1 (35.5-45.6) % Plt Count 191 (140-440) K/mm3 Lymph # 1.4 (1.2-5.4) K/mm3 [place] # 0.6 (0.0-0.8) K/mm3 Eos # 0.0 (0.0-0.4) K/mm3 Baso # 0.0 (0.0-0.1) K/mm3 Comprehensive Metabolic Panel 08/19/17 Range/Units 04:36 Sodium 142 (137-145) mmol/L Potassium 2.8 L* (3.6-5.0) mmol/L Chloride 100.2 (98-107) mmol/L Carbon Dioxide 26 (22-30) mmol/L BUN 22 H (9-20) mg/dL Creatinine 1.1 (0.8-1.5) mg/dL Glucose 28 L* (75-100) mg/dL Calcium 7.1 L (8.4-10.2) mg/dL AST 53 H (5-40) units/L ALT 77 H (7-56) units/L Alkaline Phosphatase 469 H (35-129) units/L Total Protein 5.0 L (6.3-8.2) g/dL Albumin 2.1 L (3.9-5) g/dL - Imaging and Cardiology EKG: report reviewed
[2017-08-19] MEDS: MAG-OX PO SCH (12:27)
[2017-08-19] MEDS: ALDACTONE PO SCH ×2 (12:28→20:39)
[2017-08-19] MEDS: HEPARIN SUB-Q SCH ×2 (12:29→21:02)
[2017-08-19] MEDS: PEPCID IV SCH (12:29)
[2017-08-19] MEDS: SODIUM CHLORIDE FLUSH SYRINGE 10 ML IV SCH ×2 (12:29→21:06)
[2017-08-19] MEDS: ZESTRIL PO SCH (12:31)
[2017-08-19] MEDS: TOPROL XL PO SCH (12:31)
--- NOTE | 2017-08-19 15:43 | Gastroenterology Progress Note ---
Assessment and Plan - Patient Problems (1) Methamphetamine abuse Current Visit: Yes Status: Acute Plan to address problem: - Abuse counselling; abstinence encouraged. (2) Ascites Current Visit: Yes Status: Acute Plan to address problem: - Noted, in the setting of anasarca, and likely ([id number] CHF related. - Will get long-term diuretics for heart failure, and this should cover ascites as well. - R heart function not as severely impaired as L on TTE, so I hope will improve with mild diuretic therapy. (3) Transaminitis Current Visit: Yes Status: Acute Plan to address problem: - Hepatitis serologies negative; likely from malnutrition + acute toxic injury + /- acute cardiomyopathy. - CT (-) cirrhosis or mass lesion. - No further w/u needed at this point since markedly improved. - MVI daily therapy. - Will sign off; please call if needed. Subjective Date of service: 08/19/17 Principal diagnosis: Ascites/Anasarca Interval history: The patient is tolerating a regular diet and says he feels better. There is no N/V/abdominal pain. Still c/o SOB. Objective - Constitutional Vitals: Temp Pulse Resp BP Pulse Ox 98.4 F 82 18 93/70 99 08/19/17 12:36 08/19/17 12:36 08/19/17 12:36 08/19/17 12:36 08/19/17 12:36 General appearance: no acute distress - Respiratory Respiratory effort: normal Respiratory: bilateral: rales (bases) - Cardiovascular Rhythm: regular Heart Sounds: Present: S1 & S2 - Gastrointestinal General gastrointestinal: Present: soft, non-tender, distended (mild ascites) - Labs CBC & Chem 7: 08/19/17 04:36 08/19/17 04:36 Labs: Laboratory Results - last 24 hr 08/18/17 08/18/17 08/18/17 17:19 20:16 23:37 WBC RBC Hgb Hct MCV MCH MCHC RDW Plt Count Lymph % (Auto) [place] % (Auto) Eos % (Auto) Baso % (Auto) Lymph # [place] # Eos # Baso # Seg Neutrophils % Seg Neutrophils # Sodium Potassium Chloride Carbon Dioxide Anion Gap BUN Creatinine Estimated GFR BUN/Creatinine Ratio Glucose POC Glucose 241 H 311 H 115 H Calcium Phosphorus Magnesium Ferritin Total Bilirubin AST ALT Alkaline Phosphatase Total Protein Albumin Albumin/Globulin Ratio Urine Opiates Screen Urine Methadone Screen Ur Barbiturates Screen Ur Phencyclidine Scrn Ur Amphetamines Screen U Benzodiazepines Scrn Urine Cocaine Screen U Marijuana (THC) Screen Drugs of Abuse Note 08/18/17 08/19/17 08/19/17 Unknown 04:36 04:36 WBC 12.7 H RBC 4.28 Hgb 13.3 Hct 39.1 MCV 91 MCH 31 MCHC 34 RDW 15.1 Plt Count 191 Lymph % (Auto) 11.3 L [place] % (Auto) 4.5 Eos % (Auto) 0.1 Baso % (Auto) 0.1 Lymph # 1.4 [place] # 0.6 Eos # 0.0 Baso # 0.0 Seg Neutrophils % 84.0 H Seg Neutrophils # 10.7 H Sodium 142 Potassium 2.8 L* Chloride 100.2 Carbon Dioxide 26 Anion Gap 19 BUN 22 H Creatinine 1.1 Estimated GFR > 60 BUN/Creatinine Ratio 20 Glucose 28 L* POC Glucose Calcium 7.1 L Phosphorus 2.80 Magnesium 1.40 L Ferritin Total Bilirubin 0.20 AST 53 H ALT 77 H Alkaline Phosphatase 469 H Total Protein 5.0 L Albumin 2.1 L Albumin/Globulin Ratio 0.7 Urine Opiates Screen Presumptive negative Urine Methadone Screen Presumptive negative Ur Barbiturates Screen Presumptive negative Ur Phencyclidine Scrn Presumptive negative Ur Amphetamines Screen Presumptive positive U Benzodiazepines Scrn Presumptive negative Urine Cocaine Screen Presumptive negative U Marijuana (THC) Screen Presumptive negative Drugs of Abuse Note Disclamer 08/19/17 04:36 WBC RBC Hgb Hct MCV MCH MCHC RDW Plt Count Lymph % (Auto) [place] % (Auto) Eos % (Auto) Baso % (Auto) Lymph # [place] # Eos # Baso # Seg Neutrophils % Seg Neutrophils # Sodium Potassium Chloride Carbon Dioxide Anion Gap BUN Creatinine Estimated GFR BUN/Creatinine Ratio Glucose POC Glucose Calcium Phosphorus Magnesium Ferritin 328.5 Total Bilirubin AST ALT Alkaline Phosphatase Total Protein Albumin Albumin/Globulin Ratio Urine Opiates Screen Urine Methadone Screen Ur Barbiturates Screen Ur Phencyclidine Scrn Ur Amphetamines Screen U Benzodiazepines Scrn Urine Cocaine Screen U Marijuana (THC) Screen Drugs of Abuse Note
[2017-08-19] MEDS ORDERED: HumaLOG SUB-Q ONE (17:00)
[2017-08-19] MEDS: K-DUR PO SCH (21:01)
[2017-08-20] MEDS ORDERED: HumaLOG SUB-Q ONE ×3 (00:16)
[2017-08-20] MEDS: HumaLOG SUB-Q SCH ×5 (00:20→21:36)
[2017-08-20] MEDS: PERCOCET 5/325 PO PRN ×3 (05:22→21:38)
[2017-08-20] MEDS: LASIX IV SCH ×2 (05:22→17:34)
[2017-08-20] MEDS: ATIVAN PO PRN ×3 (05:22→21:42)
[2017-08-20 06:40] LABS: BUN/Creatinine Ratio 20; Blood Urea Nitrogen 24 mg/dL (9-20); Calcium 7.3 mg/dL (8.4-10.2); Hemolysis Index 26
[2017-08-20] MEDS: MAG-OX PO SCH (10:57)
[2017-08-20] MEDS: PROTONIX PO SCH (10:57)
[2017-08-20] MEDS: K-DUR PO SCH ×2 (10:58→21:37)
[2017-08-20] MEDS: ALDACTONE PO SCH (10:58)
[2017-08-20] MEDS: HEPARIN SUB-Q SCH ×2 (10:58→21:37)
[2017-08-20] MEDS: THERAGRAN-M Tab PO SCH (10:58)
[2017-08-20] MEDS: TOPROL XL PO SCH (11:00)
[2017-08-20] MEDS: SODIUM CHLORIDE FLUSH SYRINGE 10 ML IV SCH ×2 (11:00→21:42)
[2017-08-20] MEDS: ZESTRIL PO SCH (11:10)
--- NOTE | 2017-08-20 12:50 | Progress Note ---
Assessment and Plan Newly diagnosed cardiomyopathy with EF 30-35% Uncontrolled type II DM Failure to thrive Edema Hypoalbuminemia Transaminitis Hypokalemia Systemic Hypertension Homelessness Prior h/o methylamphetamine abuse Recommendations: Will consider eventual myocardial ischemia evaluation with left and right heart cath once underlying metabolic issues are well controlled - if needed, can be done as outpatient. Aggressive blood sugar control Medical therapy for cardiomyopathy Nutrition consult Correct electrolyte abnormalities. Subjective Date of service: 08/20/17 Principal diagnosis: Ascites/Anasarca Interval history: No cardiac complaints. Dyspnea improving. Objective Vital Signs Temp Pulse Resp BP BP Pulse Ox 08/20/17 11:58 98.1 F 80 17 129/80 93 08/20/17 08:20 98.2 F 104 H 18 94/64 96 08/20/17 04:06 98.6 F 94 H 20 103/69 94 08/20/17 00:24 98.5 F 53 L 20 101/78 100 08/19/17 22:00 18 08/19/17 19:46 98.3 F 78 20 106/65 99 08/19/17 18:23 98.4 F 76 18 126/82 92 08/19/17 12:36 98.4 F 82 18 93/70 99 - Physical Examination Neck: Positive: neck supple. Negative: JVD/HJR Cardiac: Positive: Reg Rate and Rhythm Lungs: Positive: clear to auscultation Neuro: Positive: Grossly Intact Abdomen: Positive: Soft, Active Bowel Sounds Extremities: Present: +1 Edema, +2 Edema - Labs and Meds Comprehensive Metabolic Panel 08/20/17 Range/Units 04:29 Sodium 138 (137-145) mmol/L Potassium 3.1 L (3.6-5.0) mmol/L Chloride 98.4 (98-107) mmol/L Carbon Dioxide 24 (22-30) mmol/L BUN 24 H (9-20) mg/dL Creatinine 1.2 (0.8-1.5) mg/dL Glucose 79 (75-100) mg/dL Calcium 7.3 L (8.4-10.2) mg/dL - Imaging and Cardiology EKG: report reviewed
--- NOTE | 2017-08-20 15:43 | Progress Note ---
Assessment and Plan Assessment and plan: 52-year-old gentleman with a history of diabetes who has not taken any medications in at least 2 weeks presents to the emergency room with a two-week history of swelling of the lower extremities bilaterally from the knees down. States that he has been living with a friend but is no longer doing so. He is not taking any medications b/c of financial reasons.Has not been eating well. 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 Acute systolic CHF EF of 30% continue diuresiss, optimize meds, add BB and DAYA -for cath on monday -dw cardiology Transaminitis -may be related to malnutrition Hepatitis serology negative GI consult requested -fup CT A/P Uncontrolled diabetes mellitus Very poorly controlled DM.Noncompliance is a Issue continue ([id number]) to be prescribed at discharge and follow up at [facility].A1c is 12.2 -add SSI Failure to thrive in adult Needs senior living placement and improved nutrition..CM consulted hypomagnesemia replete PO Hypoalbuminemia likely due to severe malnutrition HTN (hypertension) On Coreg Severe malnutrition Dietitian consult Hypokalemia Supplemented, check mg and phos LE edema -likely due to low albumin and CHF VL echo neg for DVT FLuid overload Initiated on Lasix and aldactone.Peripheral edema multifactorial Low Albumin and CHF -diuresis Hypokalemia -replete IV and PO DVT prophylaxis Current Visit: No Status: Acute Plan to address problem: Heparin SQ patient is homeless and will need senior living placement at time of dc History Interval history: c.o anxiety c/o bilat LE swelling and pain, no sob, no cp, no fever admits to poor nutrition , and is homeless denies etoh abuse, denies recent drug abuse, is on a methadone program from of opioid dependence Hospitalist Physical - Physical exam Narrative exam: General appearance: Present: no acute distress, cachectic - EENT Eyes: Present: PERRL ENT: hearing intact - Neck Neck: Present: supple - Respiratory Respiratory effort: normal Respiratory: bilateral: CTA - Cardiovascular Rhythm: regular Heart Sounds: Present: S1 & S2 - Extremities Extremity abnormal: edema (bilateral LE, 3 plus and pitting) Peripheral Pulses: within normal limits - Abdominal General gastrointestinal: soft, non-tender - Integumentary Integumentary: Present: clear, warm, erythema (left leg, cw stasis dermatitis) - Psychiatric Psychiatric: appropriate mood/affect, intact judgment & insight - Neurologic Neurologic: CNII-XII intact, moves all extremities - Constitutional Vitals: Temp Pulse Resp BP Pulse Ox 98.1 F 80 17 129/80 93 08/20/17 11:58 08/20/17 11:58 08/20/17 11:58 08/20/17 11:58 08/20/17 11:58 General appearance: Present: no acute distress, cachectic Results - Labs CBC & Chem 7: 08/19/17 04:36 08/20/17 04:29 Labs: Laboratory Last Values WBC 12.7 K/mm3 (4.5-11.0) H 08/19/17 04:36 RBC 4.28 M/mm3 (3.65-5.03) 08/19/17 04:36 Hgb 13.3 gm/dl (11.8-15.2) 08/19/17 04:36 Hct 39.1 % (35.5-45.6) 08/19/17 04:36 MCV 91 fl (84-94) 08/19/17 04:36 MCH 31 pg (28-32) 08/19/17 04:36 MCHC 34 % (32-34) 08/19/17 04:36 RDW 15.1 % (13.2-15.2) 08/19/17 04:36 Plt Count 191 K/mm3 (140-440) 08/19/17 04:36 Lymph % (Auto) 11.3 % (13.4-35.0) L 08/19/17 04:36 [place] % (Auto) 4.5 % (0.0-7.3) 08/19/17 04:36 Eos % (Auto) 0.1 % (0.0-4.3) 08/19/17 04:36 Baso % (Auto) 0.1 % (0.0-1.8) 08/19/17 04:36 Lymph # 1.4 K/mm3 (1.2-5.4) 08/19/17 04:36 [place] # 0.6 K/mm3 (0.0-0.8) 08/19/17 04:36 Eos # 0.0 K/mm3 (0.0-0.4) 08/19/17 04:36 Baso # 0.0 K/mm3 (0.0-0.1) 08/19/17 04:36 Seg Neutrophils % 84.0 % (40.0-70.0) H 08/19/17 04:36 Seg Neutrophils # 10.7 K/mm3 (1.8-7.7) H 08/19/17 04:36 Sodium 138 mmol/L (137-145) 08/20/17 04:29 Potassium 3.1 mmol/L (3.6-5.0) L 08/20/17 04:29 Chloride 98.4 mmol/L (98-107) 08/20/17 04:29 Carbon Dioxide 24 mmol/L (22-30) 08/20/17 04:29 Anion Gap 19 mmol/L 08/20/17 04:29 BUN 24 mg/dL (9-20) H 08/20/17 04:29 Creatinine 1.2 mg/dL (0.8-1.5) 08/20/17 04:29 Estimated GFR > 60 ml/min 08/20/17 04:29 BUN/Creatinine Ratio 20 % 08/20/17 04:29 Glucose 79 mg/dL (75-100) 08/20/17 04:29 POC Glucose 104 (70-105) 08/20/17 05:30 Hemoglobin A1c 12.2 % (4-6) H 08/17/17 13:21 Calcium 7.3 mg/dL (8.4-10.2) L 08/20/17 04:29 Phosphorus 2.70 mg/dL (2.5-4.5) 08/20/17 04:29 Magnesium 1.40 mg/dL (1.7-2.3) L 08/19/17 04:36 Ferritin 328.5 ng/mL (13.0-400.0) 08/19/17 04:36 Total Bilirubin 0.20 mg/dL (0.1-1.2) 08/19/17 04:36 AST 53 units/L (5-40) H 08/19/17 04:36 ALT 77 units/L (7-56) H 08/19/17 04:36 Alkaline Phosphatase 469 units/L (35-129) H 08/19/17 04:36 NT-Pro-B Natriuret Pep 2428 pg/mL (0-900) H 08/17/17 13:25 Total Protein 5.0 g/dL (6.3-8.2) L 08/19/17 04:36 Albumin 2.1 g/dL (3.9-5) L 08/19/17 04:36 Albumin/Globulin Ratio 0.7 % 08/19/17 04:36 Urine Color Straw (Yellow) 08/17/17 17:45 Urine Turbidity Clear (Clear) 08/17/17 17:45 Urine pH 7.0 (5.0-7.0) 08/17/17 17:45 Ur Specific [place] 1.006 (1.003-1.030) 08/17/17 17:45 Urine Protein <15 mg/dl mg/dL (Negative) 08/17/17 17:45 Urine Glucose (UA) 50 mg/dL (Negative) 08/17/17 17:45 Urine Ketones Neg mg/dL (Negative) 08/17/17 17:45 Urine Blood Neg (Negative) 08/17/17 17:45 Urine Nitrite Neg (Negative) 08/17/17 17:45 Urine Bilirubin Neg (Negative) 08/17/17 17:45 Urine Urobilinogen < 2.0 mg/dL (<2.0) 08/17/17 17:45 Ur Leukocyte Esterase Neg (Negative) 08/17/17 17:45 Urine WBC (Auto) 1.0 /HPF (0.0-6.0) 08/17/17 17:45 Urine RBC (Auto) < 1.0 /HPF (0.0-6.0) 08/17/17 17:45 Urine Mucus Few /HPF 08/17/17 17:45 Urine Opiates Screen Presumptive negative 08/18/17 Unknown Urine Methadone Screen Presumptive negative 08/18/17 Unknown Ur Barbiturates Screen Presumptive negative 08/18/17 Unknown Ur Phencyclidine Scrn Presumptive negative 08/18/17 Unknown Ur Amphetamines Screen Presumptive positive 08/18/17 Unknown U Benzodiazepines Scrn Presumptive negative 08/18/17 Unknown Urine Cocaine Screen Presumptive negative 08/18/17 Unknown U Marijuana (THC) Screen Presumptive negative 08/18/17 Unknown Drugs of Abuse Note Disclamer 08/18/17 Unknown Hepatitis A IgM Ab Non-reactive (NonReactive) 08/17/17 21:50 Hep Bs Antigen Non-reactive (Negative) 08/17/17 21:50 Hep B Core IgM Ab Non-reactive (NonReactive) 08/17/17 21:50 Hepatitis C Antibody Non-reactive (NonReactive) 08/17/17 21:50
[2017-08-21] MEDS: LASIX IV SCH ×2 (05:23→17:10)
[2017-08-21] MEDS: PERCOCET 5/325 PO PRN ×2 (05:49→16:34)
[2017-08-21] MEDS: ATIVAN PO PRN ×2 (05:49→16:34)
[2017-08-21 06:13] LABS: BUN/Creatinine Ratio 21; Blood Urea Nitrogen 21 mg/dL (9-20); Calcium 7.2 mg/dL (8.4-10.2); Hemolysis Index 4
--- NOTE | 2017-08-21 07:07 | Progress Note ---
Assessment and Plan Assessment and plan: 52-year-old gentleman with a history of diabetes who has not taken any medications in at least 2 weeks presents to the emergency room with a two-week history of swelling of the lower extremities bilaterally from the knees down. States that he has been living with a friend but is no longer doing so. He is not taking any medications b/c of financial reasons.Has not been eating well. 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 Acute systolic CHF EF of 30% continue diuresiss, optimize meds, add BB and DAYA -for cath vs stress test per cardiology -dw cardiology Transaminitis -may be related to malnutrition Hepatitis serology negative GI consult requested -fup CT A/P Uncontrolled diabetes mellitus Very poorly controlled DM.Noncompliance is a Issue continue ([id number]) to be prescribed at discharge and follow up at [facility].A1c is 12.2 -add SSI Failure to thrive in adult Needs detention placement and improved nutrition..CM consulted hypomagnesemia replete PO, improved Hypoalbuminemia likely due to severe malnutrition HTN (hypertension) On Coreg Severe malnutrition Dietitian consult Hypokalemia Supplemented, resolved LE edema -likely due to low albumin and CHF VL echo neg for DVT FLuid overload Initiated on Lasix and aldactone.Peripheral edema multifactorial Low Albumin and CHF -diuresis DVT prophylaxis Current Visit: No Status: Acute Plan to address problem: Heparin SQ patient is homeless ; he was offered need detention placement but he refused History Interval history: c.o anxiety c/o bilat LE swelling and pain with interval improvement, no sob, no cp, no fever admits to poor nutrition , and is homeless denies etoh abuse, has used crystal meth recently Hospitalist Physical - Physical exam Narrative exam: General appearance: Present: no acute distress, cachectic - EENT Eyes: Present: PERRL ENT: hearing intact - Neck Neck: Present: supple - Respiratory Respiratory effort: normal Respiratory: bilateral: CTA - Cardiovascular Rhythm: regular Heart Sounds: Present: S1 & S2 - Extremities Extremity abnormal: edema (bilateral LE, 3 plus and pitting) Peripheral Pulses: within normal limits - Abdominal General gastrointestinal: soft, non-tender - Integumentary Integumentary: Present: clear, warm, erythema (left leg, cw stasis dermatitis) - Psychiatric Psychiatric: appropriate mood/affect, intact judgment & insight - Neurologic Neurologic: CNII-XII intact, moves all extremities - Constitutional Vitals: Temp Pulse Resp BP Pulse Ox 98.8 F 115 H 20 94/61 96 08/20/17 23:57 08/20/17 23:57 08/21/17 05:49 08/20/17 23:57 08/20/17 23:57 General appearance: Present: no acute distress, cachectic Results - Labs CBC & Chem 7: 08/19/17 04:36 08/21/17 04:36 Labs: Laboratory Last Values WBC 12.7 K/mm3 (4.5-11.0) H 08/19/17 04:36 RBC 4.28 M/mm3 (3.65-5.03) 08/19/17 04:36 Hgb 13.3 gm/dl (11.8-15.2) 08/19/17 04:36 Hct 39.1 % (35.5-45.6) 08/19/17 04:36 MCV 91 fl (84-94) 08/19/17 04:36 MCH 31 pg (28-32) 08/19/17 04:36 MCHC 34 % (32-34) 08/19/17 04:36 RDW 15.1 % (13.2-15.2) 08/19/17 04:36 Plt Count 191 K/mm3 (140-440) 08/19/17 04:36 Lymph % (Auto) 11.3 % (13.4-35.0) L 08/19/17 04:36 Wheeler % (Auto) 4.5 % (0.0-7.3) 08/19/17 04:36 Eos % (Auto) 0.1 % (0.0-4.3) 08/19/17 04:36 Baso % (Auto) 0.1 % (0.0-1.8) 08/19/17 04:36 Lymph # 1.4 K/mm3 (1.2-5.4) 08/19/17 04:36 Wheeler # 0.6 K/mm3 (0.0-0.8) 08/19/17 04:36 Eos # 0.0 K/mm3 (0.0-0.4) 08/19/17 04:36 Baso # 0.0 K/mm3 (0.0-0.1) 08/19/17 04:36 Seg Neutrophils % 84.0 % (40.0-70.0) H 08/19/17 04:36 Seg Neutrophils # 10.7 K/mm3 (1.8-7.7) H 08/19/17 04:36 Sodium 137 mmol/L (137-145) 08/21/17 04:36 Potassium 3.7 mmol/L (3.6-5.0) 08/21/17 04:36 Chloride 99.4 mmol/L (98-107) 08/21/17 04:36 Carbon Dioxide 25 mmol/L (22-30) 08/21/17 04:36 Anion Gap 16 mmol/L 08/21/17 04:36 BUN 21 mg/dL (9-20) H 08/21/17 04:36 Creatinine 1.0 mg/dL (0.8-1.5) 08/21/17 04:36 Estimated GFR > 60 ml/min 08/21/17 04:36 BUN/Creatinine Ratio 21 % 08/21/17 04:36 Glucose 136 mg/dL (75-100) H 08/21/17 04:36 POC Glucose 68 (70-105) L 08/21/17 05:52 Hemoglobin A1c 12.2 % (4-6) H 08/17/17 13:21 Calcium 7.2 mg/dL (8.4-10.2) L 08/21/17 04:36 Phosphorus 2.70 mg/dL (2.5-4.5) 08/20/17 04:29 Magnesium 1.50 mg/dL (1.7-2.3) L 08/21/17 04:36 Ferritin 328.5 ng/mL (13.0-400.0) 08/19/17 04:36 Total Bilirubin 0.20 mg/dL (0.1-1.2) 08/19/17 04:36 AST 53 units/L (5-40) H 08/19/17 04:36 ALT 77 units/L (7-56) H 08/19/17 04:36 Alkaline Phosphatase 469 units/L (35-129) H 08/19/17 04:36 NT-Pro-B Natriuret Pep 2428 pg/mL (0-900) H 08/17/17 13:25 Total Protein 5.0 g/dL (6.3-8.2) L 08/19/17 04:36 Albumin 2.1 g/dL (3.9-5) L 08/19/17 04:36 Albumin/Globulin Ratio 0.7 % 08/19/17 04:36 Urine Color Straw (Yellow) 08/17/17 17:45 Urine Turbidity Clear (Clear) 08/17/17 17:45 Urine pH 7.0 (5.0-7.0) 08/17/17 17:45 Ur Specific [place] 1.006 (1.003-1.030) 08/17/17 17:45 Urine Protein <15 mg/dl mg/dL (Negative) 08/17/17 17:45 Urine Glucose (UA) 50 mg/dL (Negative) 08/17/17 17:45 Urine Ketones Neg mg/dL (Negative) 08/17/17 17:45 Urine Blood Neg (Negative) 08/17/17 17:45 Urine Nitrite Neg (Negative) 08/17/17 17:45 Urine Bilirubin Neg (Negative) 08/17/17 17:45 Urine Urobilinogen < 2.0 mg/dL (<2.0) 08/17/17 17:45 Ur Leukocyte Esterase Neg (Negative) 08/17/17 17:45 Urine WBC (Auto) 1.0 /HPF (0.0-6.0) 08/17/17 17:45 Urine RBC (Auto) < 1.0 /HPF (0.0-6.0) 08/17/17 17:45 Urine Mucus Few /HPF 08/17/17 17:45 Urine Opiates Screen Presumptive negative 08/18/17 Unknown Urine Methadone Screen Presumptive negative 08/18/17 Unknown Ur Barbiturates Screen Presumptive negative 08/18/17 Unknown Ur Phencyclidine Scrn Presumptive negative 08/18/17 Unknown Ur Amphetamines Screen Presumptive positive 08/18/17 Unknown U Benzodiazepines Scrn Presumptive negative 08/18/17 Unknown Urine Cocaine Screen Presumptive negative 08/18/17 Unknown U Marijuana (THC) Screen Presumptive negative 08/18/17 Unknown Drugs of Abuse Note Disclamer 08/18/17 Unknown Hepatitis A IgM Ab Non-reactive (NonReactive) 08/17/17 21:50 Hep Bs Antigen Non-reactive (Negative) 08/17/17 21:50 Hep B Core IgM Ab Non-reactive (NonReactive) 08/17/17 21:50 Hepatitis C Antibody Non-reactive (NonReactive) 08/17/17 21:50
[2017-08-21] MEDS: HumaLOG SUB-Q SCH ×4 (07:41→21:46)
[2017-08-21] MEDS: ZESTRIL PO SCH (10:07)
[2017-08-21] MEDS: TOPROL XL PO SCH (10:07)
--- NOTE | 2017-08-21 10:38 | Progress Note ---
Assessment and Plan Newly diagnosed cardiomyopathy with EF 30-35% Uncontrolled type II DM Failure to thrive Edema Hypoalbuminemia Transaminitis Hypokalemia Systemic Hypertension Homelessness Prior h/o methylamphetamine abuse Recommendations: Eventual ischemic evaluation once underlying metabolic issues are well controlled. Blood sugar control by primary team Medical therapy for cardiomyopathy Correct electrolyte abnormalities. Subjective Date of service: 08/21/17 Principal diagnosis: Ascites/Anasarca Interval history: Patient has no complaints. No reported events on telemetry monitoring. Objective Vital Signs Temp Pulse Resp Resp BP BP Pulse Ox 08/21/17 07:05 98.8 F 106 H 16 95/66 98 08/21/17 05:49 20 08/21/17 04:05 98.4 F 106 H 20 105/65 97 08/20/17 23:57 98.8 F 115 H 22 94/61 96 08/20/17 23:00 93 H 08/20/17 22:35 98 08/20/17 22:00 20 08/20/17 21:38 20 08/20/17 19:41 98.3 F 102 H 20 107/78 97 08/20/17 16:38 98.0 F 90 18 115/79 100 08/20/17 11:58 98.1 F 80 17 129/80 93 - Physical Examination General: No Apparent Distress HEENT: Positive: PERRL Cardiac: Positive: Reg Rate and Rhythm Lungs: Positive: Decreased Breath Sounds Neuro: Positive: Grossly Intact - Labs and Meds Comprehensive Metabolic Panel 08/21/17 Range/Units 04:36 Sodium 137 (137-145) mmol/L Potassium 3.7 (3.6-5.0) mmol/L Chloride 99.4 (98-107) mmol/L Carbon Dioxide 25 (22-30) mmol/L BUN 21 H (9-20) mg/dL Creatinine 1.0 (0.8-1.5) mg/dL Glucose 136 H (75-100) mg/dL Calcium 7.2 L (8.4-10.2) mg/dL - Imaging and Cardiology EKG: report reviewed
[2017-08-21] MEDS: ALDACTONE PO SCH (11:43)
[2017-08-21] MEDS: MAG-OX PO SCH (11:43)
[2017-08-21] MEDS: THERAGRAN-M Tab PO SCH (11:43)
[2017-08-21] MEDS: HEPARIN SUB-Q SCH ×2 (11:44→21:45)
[2017-08-21] MEDS: K-DUR PO SCH ×2 (11:44→21:45)
[2017-08-21] MEDS: PROTONIX PO SCH (11:45)
[2017-08-21] MEDS: SODIUM CHLORIDE FLUSH SYRINGE 10 ML IV SCH ×2 (11:46→21:45)
[2017-08-21] MEDS ORDERED: MAG-OX PO SCH (22:00)
[2017-08-22] MEDS: PERCOCET 5/325 PO PRN ×2 (01:50→08:41)
[2017-08-22] MEDS: ATIVAN PO PRN ×2 (01:50→08:41)
[2017-08-22 05:33] VITALS: BP 105/72
[2017-08-22 06:05] LABS: BUN/Creatinine Ratio 23; Blood Urea Nitrogen 21 mg/dL (9-20); Calcium 7.6 mg/dL (8.4-10.2); Hemolysis Index 0
[2017-08-22] MEDS: LASIX IV SCH (06:30)
[2017-08-22] MEDS: HumaLOG SUB-Q SCH (08:16)
--- NOTE | 2017-08-22 09:38 | Progress Note ---
Assessment and Plan Newly diagnosed cardiomyopathy with EF 30-35% Uncontrolled type II DM Failure to thrive Edema Hypoalbuminemia Transaminitis Hypokalemia Systemic Hypertension Homelessness Prior h/o methylamphetamine abuse Recommendations: Continue medical therapy for his dilated cardiomyopathy. Further cardiac evaluation will be obtained as an outpatient. Subjective Date of service: 08/22/17 Principal diagnosis: Ascites/Anasarca Interval history: Patient has no cardiac complaints. Complains of bilateral LE pain. Objective Vital Signs Temp Pulse Resp BP BP Pulse Ox 08/22/17 07:11 98.1 F 110 H 20 105/72 100 08/22/17 04:12 104 H 96 08/22/17 04:11 106 H 20 105/72 96 08/22/17 04:00 98.0 F 110 H 20 105/72 97 08/21/17 23:28 98.1 F 110 H 20 89/56 95 08/21/17 23:00 100 H 08/21/17 22:20 111 H 95 08/21/17 22:19 98.1 F 109 H 20 89/56 95 08/21/17 19:00 98.1 F 102 H 20 99/65 98 08/21/17 16:54 97.1 F L 92 H 20 105/72 97 08/21/17 11:43 71 08/21/17 11:28 97.7 F 96 H 16 108/74 98 - Physical Examination General: No Apparent Distress HEENT: Positive: PERRL Cardiac: Positive: Tachycardia Lungs: Positive: Decreased Breath Sounds Neuro: Positive: Grossly Intact Extremities: Present: +1 Edema - Labs and Meds Comprehensive Metabolic Panel 08/22/17 Range/Units 04:35 Sodium 139 (137-145) mmol/L Potassium 4.4 (3.6-5.0) mmol/L Chloride 100.0 (98-107) mmol/L Carbon Dioxide 28 (22-30) mmol/L BUN 21 H (9-20) mg/dL Creatinine 0.9 (0.8-1.5) mg/dL Glucose 129 H (75-100) mg/dL Calcium 7.6 L (8.4-10.2) mg/dL - Imaging and Cardiology EKG: report reviewed
--- NOTE | 2017-08-22 10:26 | Discharge Summary ---
Providers - Providers Date of Admission: 08/17/17 21:32 Attending physician: PAO MONTGOMERY MD 08/17/17 17:50 Consult to Case Management [CONS] Stat Services Needed at Discharge: [facility] Notified:: physician enedina Phone number called:: [phone] Was contact made?: No Time called:: 17:00 08/17/17 21:32 Consult to Physician [CONS] Routine Consulting Provider: TRACY MCKEON Reason For Exam: Hepatitis Place consult to:: GI Notified:: OFFICE Phone number called:: [phone] Was contact made?: Yes If yes, spoke with:: MARILUZ Time called:: 09:17 08/17/17 21:38 Consult to Physician [CONS] Routine Consulting Provider: BC MORROW Reason For Exam: CHF exacrbation Notified:: yes 08/18/17 06:34 Consult to Dietitian/Nutrition [CONS] Routine Physician Instructions: Reason For Exam: Reason for Consult: Nutrition Recommendations Reason for Consult: Malnutrition Primary care physician: ASSIGNMENT MANAGER Hospitalization Condition: Stable - Discharge Diagnoses (1) Ascites Status: Acute (2) CHF (congestive heart failure) Status: Acute Qualifiers: Heart failure type: other Qualified Code(s): I50.9 - Heart failure, unspecified (3) Edema Status: Acute Qualifiers: Edema type: due to malnutrition Malnutrition edema type: unspecified malnutrition type Qualified Code(s): E43 - Unspecified severe protein-calorie malnutrition (4) Hypoalbuminemia Status: Acute (5) Methamphetamine abuse Status: Acute (6) Transaminitis Status: Acute Core Measure Documentation - Palliative Care Palliative Care/ Comfort Measures: Not Applicable - Core Measures Any of the following diagnoses?: heart failure - Heart Failure Discharge Requirements DAYA/ARB for LVSD if EF <40%: Yes Beta adriano at discharge: Yes Exam - Constitutional Vitals: Temp Pulse Resp BP Pulse Ox 98.1 F 110 H 20 105/72 100 08/22/17 07:11 08/22/17 07:11 08/22/17 07:11 08/22/17 07:11 08/22/17 07:11 Plan Activity: no restrictions Weight Bearing Status: Full Weight Bearing Diet: low cholesterol, low salt Additional Instructions: Follow at [facility] in 1 week Follow up with: NAVEED KEARNS MD [Primary Care Provider] - 3-5 Days [facility] [Provider Group] - 7 Days Prescriptions: Insulin NPH/Regular [NovoLIN 70/30] 25 unit SUB-Q BIDDIAB #2 vial Lisinopril [Zestril TAB] 2.5 mg PO QDAY #30 tablet Metoprolol Xl [Metoprolol SUCCINATE ER TAB] 25 mg PO QDAY #30 tablet oxyCODONE /ACETAMINOPHEN [Percocet 5/325 mg] 1 tab PO Q6H PRN #10 tablet PRN Reason: Pain, Moderate (4-6) Pantoprazole [Protonix TAB] 40 mg PO QDAY #15 tablet Spironolactone [Aldactone] 50 mg PO QDAY #30 tablet
[2017-08-22 19:36] LABS: ANA Screen, IFA Negative (Negative)
== END 2017-08-22 13:08 | disposition home or self-care (01) | DRG 291 ==
LOC: ED 12:59 → 4A 21:32
PROVIDERS: ADMIT Internal Medicine; ATTEND Internal Medicine
DX: I11.0 Hypertensive heart disease with heart failure (principal); E43 Unspecified severe protein-calorie malnutrition; R18.8 Other ascites; I50.21 Acute systolic (congestive) heart failure; I42.9 Cardiomyopathy, unspecified; E88.09 Other disorders of plasma-protein metabolism, not elsewhere classified; E87.6 Hypokalemia; E11.40 Type 2 diabetes mellitus with diabetic neuropathy, unspecified; F17.200 Nicotine dependence, unspecified, uncomplicated; F15.10 Other stimulant abuse, uncomplicated; E11.65 Type 2 diabetes mellitus with hyperglycemia; E87.70 Fluid overload, unspecified; R62.7 Adult failure to thrive; F41.9 Anxiety disorder, unspecified; Z82.49 Family history of ischemic heart disease and other diseases of the circulatory system; Z79.4 Long term (current) use of insulin; Z83.3 Family history of diabetes mellitus; Z90.49 Acquired absence of other specified parts of digestive tract
CPT/HCPCS: 36415; 71045; 74176; 80048; 80053; 80074; 80307; 81001; 82728; 82962; 83036; 83735; 83880; 84100; 85025; 86038; 93306; 93970; 96374; 96375; 99406; J1644; J1815; J1940; J2270; J2405; J3480; J7040

== ENCOUNTER 2017-09-07 18:11 | Emergency (ER) | payer OTHER ==
[2017-09-07] MEDS ORDERED: PERCOCET 5/325 PO ONE (21:39)
[2017-09-07] MEDS ORDERED: LASIX PO ONE (21:45)
--- NOTE | 2017-09-07 21:49 | Emergency Department Report ---
ED General Adult HPI - General Chief complaint: Extremity Injury, Lower Stated complaint: WEAKNESS/LEG SWELLING Source: patient Mode of arrival: Wheelchair Limitations: No Limitations - History of Present Illness Initial comments: Patient is a 52-year-old male homeless noncompliant with medications who presents with weakness and some leg swelling. Patient states that he has not followed up with his primary care provider. He also states he's had some fluid in his legs. He denies any chest or any shortness of breath any nausea any vomiting in the fevers or chills. The patient was admitted weeks ago and left the hospital. The only prescription he struck to fill his Percocet. He has a history of opiate abuse and homelessness. Patient was also here to get social work services. Patient states leg pain is bilateral and is making him pain it' s an 8 out of 10 it's constant nothing makes it better or worse - Related Data Home Medications Medication Instructions Recorded Confirmed Last Taken Insulin Regular, Human See Protocol [facility] 01/30/17 08/20/17 Unknown Previous Rx's Medication Instructions Recorded Last Taken Type Insulin NPH/Regular [NovoLIN 70/30] 25 unit SUB-Q BIDDIAB #2 vial 08/22/17 Unknown Rx Lisinopril [Zestril TAB] 2.5 mg PO QDAY #30 tablet 08/22/17 Unknown Rx Metoprolol Xl [Metoprolol 25 mg PO QDAY #30 tablet 08/22/17 Unknown Rx SUCCINATE ER TAB] Pantoprazole [Protonix TAB] 40 mg PO QDAY #15 tablet 08/22/17 Unknown Rx Spironolactone [Aldactone] 50 mg PO QDAY #30 tablet 08/22/17 Unknown Rx oxyCODONE /ACETAMINOPHEN [Percocet 1 tab PO Q6H PRN #10 tablet 08/22/17 Unknown Rx 5/325 mg] Allergies Allergy/AdvReac Type Severity Reaction Status Date / Time No Known Allergies Allergy Verified 08/17/17 13:14 ED Review of Systems ROS: Stated complaint: WEAKNESS/LEG SWELLING Other details as noted in HPI Constitutional: denies: chills, fever Eyes: denies: eye pain, eye discharge, vision change ENT: denies: ear pain, throat pain Respiratory: denies: cough, shortness of breath, wheezing Cardiovascular: denies: chest pain, palpitations Endocrine: no symptoms reported Gastrointestinal: denies: abdominal pain, nausea, diarrhea Genitourinary: denies: urgency, dysuria Musculoskeletal: other (leg swelling ). denies: back pain, joint swelling, arthralgia Skin: denies: rash, lesions Neurological: denies: headache, weakness, paresthesias Psychiatric: denies: anxiety, depression Hematological/Lymphatic: denies: easy bleeding, easy bruising ED Past Medical Hx - Past Medical History Hx Hypertension: Yes Hx Congestive Heart Failure: No Hx Diabetes: Yes Hx Psychiatric Treatment: Yes (Anxiety) Hx Asthma: No Hx COPD: No Hx HIV: No Additional medical history: neuropathy - Surgical History Hx Cholecystectomy: Yes Additional Surgical History: hernia - Social History Smoking Status: Current Every Day Smoker Substance Use Type: None - Medications Home Medications: Home Medications Medication Instructions Recorded Confirmed Last Taken Type Insulin Regular, Human See Protocol [facility] 01/30/17 08/20/17 Unknown History Insulin NPH/Regular [NovoLIN 70/30] 25 unit SUB-Q BIDDIAB #2 vial 08/22/17 Unknown Rx Lisinopril [Zestril TAB] 2.5 mg PO QDAY #30 tablet 08/22/17 Unknown Rx Metoprolol Xl [Metoprolol 25 mg PO QDAY #30 tablet 08/22/17 Unknown Rx SUCCINATE ER TAB] Pantoprazole [Protonix TAB] 40 mg PO QDAY #15 tablet 08/22/17 Unknown Rx Spironolactone [Aldactone] 50 mg PO QDAY #30 tablet 08/22/17 Unknown Rx oxyCODONE /ACETAMINOPHEN [Percocet 1 tab PO Q6H PRN #10 tablet 08/22/17 Unknown Rx 5/325 mg] ED Physical Exam - General Limitations: No Limitations General appearance: alert, in no apparent distress - Head Head exam: Present: atraumatic, normocephalic - Eye Eye exam: Present: normal appearance - ENT ENT exam: Present: mucous membranes moist - Neck Neck exam: Present: normal inspection - Respiratory Respiratory exam: Present: normal lung sounds bilaterally. Absent: respiratory distress - Cardiovascular Cardiovascular Exam: Present: regular rate, normal rhythm. Absent: systolic murmur, diastolic murmur, rubs, gallop - GI/Abdominal GI/Abdominal exam: Present: soft, normal bowel sounds - Rectal Rectal exam: Present: deferred - Extremities Exam Extremities exam: Present: other (+1 edema ) - Back Exam Back exam: Present: normal inspection - Neurological Exam Neurological exam: Present: alert, oriented X3 - Psychiatric Psychiatric exam: Present: normal affect, normal mood - Skin Skin exam: Present: warm, dry, intact, normal color. Absent: rash ED Course Vital Signs 09/07/17 18:24 Temperature 98 F Pulse Rate 96 H Respiratory 18 Rate Blood Pressure 136/82 O2 Sat by Pulse 96 Oximetry ED Medical Decision Making - Medical Decision Making Cdx: Dependent edema ddx: homelessness, chronic heart failure I will give pt percocet and lasix and will discuss that pt will need to come tomorrow if he wishes to see the social work nurse. Additional verbal discharge instructions were given. Patient agrees with discharge. Critical care attestation.: If time is entered above; I have spent that time in minutes in the direct care of this critically ill patient, excluding procedure time. ED Disposition Clinical Impression: Methamphetamine abuse, Bilateral leg pain CHF (congestive heart failure) Qualifiers: Heart failure type: unspecified Heart failure chronicity: unspecified Qualified Code(s): I50.9 - Heart failure, unspecified Disposition: DC-01 TO HOME OR SELFCARE Is pt being admited?: No Does the pt Need Aspirin: No Condition: Stable Referrals: NEERAJ MCKEON MD [Primary Care Provider] - 3-5 Days
[2017-09-08 00:30] VITALS: BP 132/80
== END 2017-09-07 21:29 | disposition home or self-care (01) ==
LOC: ED 18:11
DX: F15.10 Other stimulant abuse, uncomplicated (principal); M79.605 Pain in left leg; M79.604 Pain in right leg; F17.200 Nicotine dependence, unspecified, uncomplicated; F41.9 Anxiety disorder, unspecified; E11.9 Type 2 diabetes mellitus without complications; Z90.49 Acquired absence of other specified parts of digestive tract
CPT/HCPCS: 99282

== ENCOUNTER 2017-09-11 14:41 | Inpatient (IN) | payer SELFPAY ==
[2017-09-11 15:40] LABS: Basophils % (Auto) 0.4 % (0.0-1.8); Eosinophils % (Auto) 0.1 % (0.0-4.3); Hematocrit 37.5 % (35.5-45.6); Hemoglobin 12.2 gm/dl (11.8-15.2); Lymphocytes # (Auto) 0.9 K/mm3 (1.2-5.4); Lymphocytes % (Auto) 16.8 % (13.4-35.0); Mean Corpuscular HGB Conc 33 % (32-34); Mean Corpuscular Hemoglobin 30 pg (28-32); Mean Corpuscular Volume 93 fl (84-94); Monocytes # (Auto) 0.2 K/mm3 (0.0-0.8); Platelet Count 335 K/mm3 (140-440); Red Blood Count 4.03 M/mm3 (3.65-5.03); Red Cell Distribution Width 16.3 % (13.2-15.2)
--- NOTE | 2017-09-11 15:44 | Emergency Department Report ---
HPI - General Chief Complaint: Altered Mental Status Time Seen by Provider: 09/11/17 15:18 - HPI HPI: Room 19 The patient is a 52-year-old male presenting with a chief complaint of altered mental status. Per EMS the patient was found lying behind the house of another person. They reported the patient was asked to leave but refused and stated that it was his house. The patient is able to state his name but states that the current year is 2015. When asked how he ended up in the emergency department the patient states he does not know. When reminded about being found lying behind the house the patient states that it was his house and he was sitting on a bench Location: Mental state Duration: Unknown, see above Quality: [See above] Severity: Moderate Modifying factors: [see above] Context: [see above] Mode of transportation: [not driving] ED Past Medical Hx - Past Medical History Hx Hypertension: Yes Hx Diabetes: Yes Hx Psychiatric Treatment: Yes (Anxiety) Additional medical history: neuropathy - Surgical History Hx Cholecystectomy: Yes Additional Surgical History: hernia - Family History Family history: no significant - Social History Smoking Status: Current Every Day Smoker (1/2 pack per day) Substance Use Type: None (denies illicit drug use) - Medications Home Medications: Home Medications Medication Instructions Recorded Confirmed Last Taken Type Insulin NPH/Regular [NovoLIN 70/30] 25 unit SUB-Q BIDDIAB #2 vial 08/22/17 Unknown Rx Lisinopril [Zestril TAB] 2.5 mg PO QDAY #30 tablet 08/22/17 Unknown Rx Metoprolol Xl [Metoprolol 25 mg PO QDAY #30 tablet 08/22/17 Unknown Rx SUCCINATE ER TAB] Pantoprazole [Protonix TAB] 40 mg PO QDAY #15 tablet 08/22/17 Unknown Rx Spironolactone [Aldactone] 50 mg PO QDAY #30 tablet 08/22/17 Unknown Rx oxyCODONE /ACETAMINOPHEN [Percocet 1 tab PO Q6H PRN #10 tablet 08/22/17 Unknown Rx 5/325 mg] ED Review of Systems ROS: Stated complaint: AMS Other details as noted in HPI Neurological: confusion Physical Exam - Physical Exam Vital Signs: Vital Signs 09/11/17 09/11/17 15:10 15:15 Temperature 97.3 F L Pulse Rate 51 L Respiratory 20 14 Rate Blood Pressure 148/89 [Left] O2 Sat by Pulse 100 Oximetry Physical Exam: GENERAL: The patient is well-developed well-nourished male sitting on stretcher not appearing to be in acute distress. [] HEENT: Normocephalic. Atraumatic. Extraocular motions are intact. Patient has moist mucous membranes. NECK: Supple. No meningitic signs are noted. Trachea midline CHEST/LUNGS: Clear to auscultation. There is no respiratory distress noted. HEART/CARDIOVASCULAR: Regular. There is no tachycardia. There is no gallop rub or murmur. ABDOMEN: Abdomen is soft, nontender. Patient has normal bowel sounds. There is no abdominal distention. SKIN: There is no rash. There is no edema. There is no diaphoresis. NEURO: The patient is awake and alert but only oriented to self. The patient is cooperative. The patient has no focal neurologic deficits. The patient has normal speech. Cranial nerves II through XII grossly intact MUSCULOSKELETAL: There is no evidence of acute injury. ED Course Vital Signs 09/11/17 09/11/17 15:10 15:15 Temperature 97.3 F L Pulse Rate 51 L Respiratory 20 14 Rate Blood Pressure 148/89 [Left] O2 Sat by Pulse 100 Oximetry ED Medical Decision Making - Lab Data Result diagrams: 09/11/17 15:22 09/11/17 15:22 Laboratory Tests 09/11/17 09/11/17 09/11/17 15:22 15:22 15:22 WBC RBC Hgb Hct MCV MCH MCHC RDW Plt Count Lymph % (Auto) Garden % (Auto) Eos % (Auto) Baso % (Auto) Lymph # Garden # Eos # Baso # Seg Neutrophils % Seg Neutrophils # PT INR APTT Sodium Potassium Chloride Carbon Dioxide Anion Gap BUN Creatinine Estimated GFR BUN/Creatinine Ratio Glucose Calcium Total Bilirubin AST ALT Alkaline Phosphatase Ammonia Total Creatine Kinase CK-MB (CK-2) CK-MB (CK-2) Rel Index Troponin T Total Protein Albumin Albumin/Globulin Ratio Urine Color Urine Turbidity Urine pH Ur Specific Amonate Urine Protein Urine Glucose (UA) Urine Ketones Urine Blood Urine Nitrite Urine Bilirubin Urine Urobilinogen Ur Leukocyte Esterase Urine WBC (Auto) Urine RBC (Auto) U Epithel Cells (Auto) Urine Mucus Salicylates < 0.3 L Acetaminophen 9.1 L Plasma/Serum Alcohol < 0.01 09/11/17 09/11/17 09/11/17 15:22 15:22 15:22 WBC 5.6 RBC 4.03 Hgb 12.2 Hct 37.5 MCV 93 MCH 30 MCHC 33 RDW 16.3 H Plt Count 335 Lymph % (Auto) 16.8 Garden % (Auto) 4.0 Eos % (Auto) 0.1 Baso % (Auto) 0.4 Lymph # 0.9 L Garden # 0.2 Eos # 0.0 Baso # 0.0 Seg Neutrophils % 78.7 H Seg Neutrophils # 4.4 PT 12.8 INR 0.92 APTT 30.3 Sodium 139 Potassium 3.0 L Chloride 102.1 Carbon Dioxide 22 Anion Gap 18 BUN 19 Creatinine 0.7 L Estimated GFR > 60 BUN/Creatinine Ratio 27 Glucose 113 H Calcium 7.1 L Total Bilirubin 0.20 AST 41 H ALT 36 Alkaline Phosphatase 519 H Ammonia Total Creatine Kinase 98 CK-MB (CK-2) 11.4 H CK-MB (CK-2) Rel Index 11.6 H Troponin T 0.028 Total Protein 5.4 L Albumin 2.2 L Albumin/Globulin Ratio 0.7 Urine Color Urine Turbidity Urine pH Ur Specific Amonate Urine Protein Urine Glucose (UA) Urine Ketones Urine Blood Urine Nitrite Urine Bilirubin Urine Urobilinogen Ur Leukocyte Esterase Urine WBC (Auto) Urine RBC (Auto) U Epithel Cells (Auto) Urine Mucus Salicylates Acetaminophen Plasma/Serum Alcohol 09/11/17 09/11/17 15:22 Unknown WBC RBC Hgb Hct MCV MCH MCHC RDW Plt Count Lymph % (Auto) Garden % (Auto) Eos % (Auto) Baso % (Auto) Lymph # Garden # Eos # Baso # Seg Neutrophils % Seg Neutrophils # PT INR APTT Sodium Potassium Chloride Carbon Dioxide Anion Gap BUN Creatinine Estimated GFR BUN/Creatinine Ratio Glucose Calcium Total Bilirubin AST ALT Alkaline Phosphatase Ammonia 57.0 Total Creatine Kinase CK-MB (CK-2) CK-MB (CK-2) Rel Index Troponin T Total Protein Albumin Albumin/Globulin Ratio Urine Color Yellow Urine Turbidity Clear Urine pH 6.0 Ur Specific Amonate 1.014 Urine Protein <15 mg/dl Urine Glucose (UA) Neg Urine Ketones Neg Urine Blood Sm Urine Nitrite Neg Urine Bilirubin Neg Urine Urobilinogen < 2.0 Ur Leukocyte Esterase Neg Urine WBC (Auto) 3.0 Urine RBC (Auto) 11.0 U Epithel Cells (Auto) < 1.0 Urine Mucus Few Salicylates Acetaminophen Plasma/Serum Alcohol - EKG Data -: EKG Interpreted by Me EKG shows normal: sinus rhythm Rate: bradycardia (48 bpm) - EKG Data When compared to previous EKG there are: previous EKG unavailable Interpretation: nonspecific ST-T wave akilah (biphasic T waves in leads 2, aVL, aVF , V4, V6.), other (prolonged QT) - Radiology Data Radiology results: report reviewed (CT head), image reviewed (CT head) CT head (read by radiologist)- negative CT head - Differential Diagnosis ICH, alcohol intoxication, substance abuse, electrolyte abnormality, rhabdo Critical care attestation.: If time is entered above; I have spent that time in minutes in the direct care of this critically ill patient, excluding procedure time. ED Disposition Clinical Impression: Altered mental status, Prolonged QT interval Disposition: 09 OP ADMIT IP TO THIS HOSP Is pt being admited?: Yes Does the pt Need Aspirin: Yes Condition: Fair Time of Disposition: 16:45 (hospitalist notified (Dr Dickson))
[2017-09-11 15:53] LABS: INR 0.92 (0.87-1.13)
[2017-09-11 15:54] LABS: Partial Thromboplastin Time 30.3 Sec. (24.2-36.6)
[2017-09-11 15:59] LABS: Creatine Kinase MB 11.4 ng/mL (0.0-4.0)
[2017-09-11 16:00] LABS: Alanine Aminotransferase 36 units/L (7-56); Albumin 2.2 g/dL (3.9-5); BUN/Creatinine Ratio 27; Blood Urea Nitrogen 19 mg/dL (9-20); Calcium 7.1 mg/dL (8.4-10.2); Hemolysis Index 35
--- NOTE | 2017-09-11 16:13 | Cat Scan Report ---
FINAL REPORT EXAM: CT HEAD/BRAIN WO CON HISTORY: altered mental status TECHNIQUE: CT head without contrast PRIORS: None. FINDINGS: No acute intra-axial or extra-axial hemorrhage is identified. There is no evidence of midline shift or mass effect. The ventricles and sulci are within normal limits. Oakes-white matter differentiation is intact. No acute parenchymal abnormalities seen. Bony calvarium is grossly intact. Visualized portions of the mastoids and paranasal sinuses are unremarkable. IMPRESSION: Negative CT head
[2017-09-11 16:19] LABS: Bilirubin,Urine NEG (Negative); Blood,Urine SM (Negative); Color,Urine Yellow (Yellow); Protein,Urine <15 mg/dL mg/dL (Negative); Urobilinogen,Urine < 2.0 mg/dL (<2.0)
[2017-09-11 16:30] LABS: Mucus,Urine FEW /HPF
[2017-09-11 16:42] LABS: Cannabinoid Screen,Urine PRESUMPTIVE NEGATIVE; Cocaine Screen,Urine PRESUMPTIVE NEGATIVE; Methadone Screen,Urine PRESUMPTIVE NEGATIVE; Opiate Screen,Urine PRESUMPTIVE NEGATIVE
[2017-09-11] MEDS ORDERED: ASPIRIN PO ONE (16:46)
[2017-09-11 16:56] LABS: Amphetamine Screen,Urine PRESUMPTIVE POSITIVE; Benzodiazepines Screen,Urine PRESUMPTIVE POSITIVE
[2017-09-11] MEDS ORDERED: ZOFRAN IV PRN (18:16)
[2017-09-11] MEDS ORDERED: MORPHINE IV PRN (18:16)
[2017-09-11] MEDS ORDERED: SODIUM CHLORIDE FLUSH SYRINGE 10 ML IV PRN (18:16)
[2017-09-11] MEDS ORDERED: AMBIEN PO PRN (18:16)
[2017-09-11] MEDS ORDERED: TYLENOL PO PRN (18:16)
[2017-09-11] MEDS ORDERED: PERCOCET 5/325 PO PRN (18:16)
--- NOTE | 2017-09-11 18:16 | History and Physical Report ---
History of Present Illness Date of examination: 09/11/17 Date of admission: 09/11/17 Chief complaint: CC: Altered mental status 1 day History of present illness: TIESHA: 52-year-old male presenting with a chief complaint of altered mental status. Per EMS the patient was found lying behind the house of another person. They reported the patient was asked to leave but refused and stated that it was his house. The patient is able to state his name but states that the current year is 2015. When asked how he ended up in the emergency department the patient states he does not know. When reminded about being found lying behind the house the patient states that it was his house and he was sitting on a bench Past Medical History Hx Hypertension: Yes Hx Diabetes: Yes Hx Psychiatric Treatment: Yes (Anxiety) Additional medical history: neuropathy Surgical History Hx Cholecystectomy: Yes Additional Surgical History: hernia Family History Family history: no significant Social History Smoking Status: Current Every Day Smoker (1/2 pack per day) Substance Use Type: None (denies illicit drug use) Medications Home Medications: Home Medications Medication Instructions Recorded Confirmed Last Taken Type Insulin NPH/Regular [NovoLIN 70/30] 25 unit SUB-Q BIDDIAB #2 vial 08/22/17 Unknown Rx Lisinopril [Zestril TAB] 2.5 mg PO QDAY #30 tablet 08/22/17 Unknown Rx Metoprolol Xl [Metoprolol 25 mg PO QDAY #30 tablet 08/22/17 Unknown Rx SUCCINATE ER TAB] Pantoprazole [Protonix TAB] 40 mg PO QDAY #15 tablet 08/22/17 Unknown Rx Spironolactone [Aldactone] 50 mg PO QDAY #30 tablet 08/22/17 Unknown Rx oxyCODONE /ACETAMINOPHEN [Percocet 1 tab PO Q6H PRN #10 tablet 08/22/17 Unknown Rx 5/325 mg] Medications and Allergies Allergies Allergy/AdvReac Type Severity Reaction Status Date / Time No Known Allergies Allergy Verified 08/17/17 13:14 Home Medications Medication Instructions Recorded Confirmed Last Taken Type Insulin NPH/Regular [NovoLIN 70/30] 25 unit SUB-Q BIDDIAB #2 vial 08/22/1709/11 Unknown Rx Lisinopril [Zestril TAB] 2.5 mg PO QDAY #30 tablet 08/22/17 09/11/17 Unknown Rx Metoprolol Xl [Metoprolol 25 mg PO QDAY #30 tablet 08/22/17 09/11/17 Unknown Rx SUCCINATE ER TAB] Pantoprazole [Protonix TAB] 40 mg PO QDAY #15 tablet 08/22/17 09/11/17 Unknown Rx Spironolactone [Aldactone] 50 mg PO QDAY #30 tablet 08/22/17 09/11/17 Unknown Rx oxyCODONE /ACETAMINOPHEN [Percocet 1 tab PO Q6H PRN #10 tablet 08/22/17 Unknown Rx 5/325 mg] Exam - Constitutional Vitals: Temp Pulse Resp BP Pulse Ox 97.3 F L 51 L 14 148/89 100 09/11/17 15:15 09/11/17 15:15 09/11/17 15:15 09/11/17 15:15 09/11/17 15:10 Results - Labs CBC & Chem 7: 09/11/17 15:22 09/11/17 15:22 Labs: Laboratory Last Values WBC 5.6 K/mm3 (4.5-11.0) 09/11/17 15:22 RBC 4.03 M/mm3 (3.65-5.03) 09/11/17 15:22 Hgb 12.2 gm/dl (11.8-15.2) 09/11/17 15:22 Hct 37.5 % (35.5-45.6) 09/11/17 15:22 MCV 93 fl (84-94) 09/11/17 15:22 MCH 30 pg (28-32) 09/11/17 15:22 MCHC 33 % (32-34) 09/11/17 15:22 RDW 16.3 % (13.2-15.2) H 09/11/17 15:22 Plt Count 335 K/mm3 (140-440) 09/11/17 15:22 Lymph % (Auto) 16.8 % (13.4-35.0) 09/11/17 15:22 Baxter % (Auto) 4.0 % (0.0-7.3) 09/11/17 15:22 Eos % (Auto) 0.1 % (0.0-4.3) 09/11/17 15:22 Baso % (Auto) 0.4 % (0.0-1.8) 09/11/17 15:22 Lymph # 0.9 K/mm3 (1.2-5.4) L 09/11/17 15:22 Baxter # 0.2 K/mm3 (0.0-0.8) 09/11/17 15:22 Eos # 0.0 K/mm3 (0.0-0.4) 09/11/17 15:22 Baso # 0.0 K/mm3 (0.0-0.1) 09/11/17 15:22 Seg Neutrophils % 78.7 % (40.0-70.0) H 09/11/17 15:22 Seg Neutrophils # 4.4 K/mm3 (1.8-7.7) 09/11/17 15:22 PT 12.8 Sec. (12.2-14.9) 09/11/17 15:22 INR 0.92 (0.87-1.13) 09/11/17 15:22 APTT 30.3 Sec. (24.2-36.6) 09/11/17 15:22 Sodium 139 mmol/L (137-145) 09/11/17 15:22 Potassium 3.0 mmol/L (3.6-5.0) L 09/11/17 15:22 Chloride 102.1 mmol/L (98-107) 09/11/17 15:22 Carbon Dioxide 22 mmol/L (22-30) 09/11/17 15:22 Anion Gap 18 mmol/L 09/11/17 15:22 BUN 19 mg/dL (9-20) 09/11/17 15:22 Creatinine 0.7 mg/dL (0.8-1.5) L 09/11/17 15:22 Estimated GFR > 60 ml/min 09/11/17 15:22 BUN/Creatinine Ratio 27 % 09/11/17 15:22 Glucose 113 mg/dL (75-100) H 09/11/17 15:22 Calcium 7.1 mg/dL (8.4-10.2) L 09/11/17 15:22 Total Bilirubin 0.20 mg/dL (0.1-1.2) 09/11/17 15:22 AST 41 units/L (5-40) H 09/11/17 15:22 ALT 36 units/L (7-56) 09/11/17 15:22 Alkaline Phosphatase 519 units/L (35-129) H 09/11/17 15:22 Ammonia 57.0 umol/L (25-60) 09/11/17 15:22 Total Creatine Kinase 98 units/L (55-170) 09/11/17 15:22 CK-MB (CK-2) 11.4 ng/mL (0.0-4.0) H 09/11/17 15:22 CK-MB (CK-2) Rel Index 11.6 (0-4) H 09/11/17 15:22 Troponin T 0.028 ng/mL (0.00-0.029) 09/11/17 15:22 Total Protein 5.4 g/dL (6.3-8.2) L 09/11/17 15:22 Albumin 2.2 g/dL (3.9-5) L 09/11/17 15:22 Albumin/Globulin Ratio 0.7 % 09/11/17 15:22 Urine Color Yellow (Yellow) 09/11/17 Unknown Urine Turbidity Clear (Clear) 09/11/17 Unknown Urine pH 6.0 (5.0-7.0) 09/11/17 Unknown Ur Specific Angela 1.014 (1.003-1.030) 09/11/17 Unknown Urine Protein <15 mg/dl mg/dL (Negative) 09/11/17 Unknown Urine Glucose (UA) Neg mg/dL (Negative) 09/11/17 Unknown Urine Ketones Neg mg/dL (Negative) 09/11/17 Unknown Urine Blood Sm (Negative) 09/11/17 Unknown Urine Nitrite Neg (Negative) 09/11/17 Unknown Urine Bilirubin Neg (Negative) 09/11/17 Unknown Urine Urobilinogen < 2.0 mg/dL (<2.0) 09/11/17 Unknown Ur Leukocyte Esterase Neg (Negative) 09/11/17 Unknown Urine WBC (Auto) 3.0 /HPF (0.0-6.0) 09/11/17 Unknown Urine RBC (Auto) 11.0 /HPF (0.0-6.0) 09/11/17 Unknown U Epithel Cells (Auto) < 1.0 /HPF (0-13.0) 09/11/17 Unknown Urine Mucus Few /HPF 09/11/17 Unknown Salicylates < 0.3 mg/dL (2.8-20.0) L 09/11/17 15:22 Urine Opiates Screen Presumptive negative 09/11/17 Unknown Urine Methadone Screen Presumptive negative 09/11/17 Unknown Acetaminophen 9.1 ug/mL (10.0-30.0) L 09/11/17 15:22 Ur Barbiturates Screen Presumptive negative 09/11/17 Unknown Ur Phencyclidine Scrn Presumptive negative 09/11/17 Unknown Ur Amphetamines Screen Presumptive positive 09/11/17 Unknown U Benzodiazepines Scrn Presumptive positive 09/11/17 Unknown Urine Cocaine Screen Presumptive negative 09/11/17 Unknown U Marijuana (THC) Screen Presumptive negative 09/11/17 Unknown Drugs of Abuse Note Disclamer 09/11/17 Unknown Plasma/Serum Alcohol < 0.01 % (0-0.07) 09/11/17 15:22
[2017-09-11] MEDS: NACL 0.9% 1000 ML 1,000 ML IV ONE ×2 (18:53→18:54)
[2017-09-11] MEDS: K-DUR PO ONE ×2 (18:53→18:54)
[2017-09-11] MEDS ORDERED: NACL 0.9% 1000 ML 1,000 ML IV SCH (19:00)
[2017-09-11 20:35] VITALS: BP 129/87
[2017-09-11] MEDS ORDERED: HEPARIN SUB-Q SCH (22:00)
[2017-09-11] MEDS ORDERED: SODIUM CHLORIDE FLUSH SYRINGE 10 ML IV SCH (22:00)
--- NOTE | 2017-09-12 14:56 | Event Note ---
Date: 09/12/17 patient evaluated Was alert and oriented ED physician wanted me to admit for polonged QT interval. Had meth the previous day which caused him to be altered
== END 2017-09-12 01:01 | disposition left against medical advice (07) | DRG 948 ==
LOC: ED 14:41 → 3A 18:16
PROVIDERS: ADMIT Internal Medicine; ATTEND Internal Medicine
DX: R41.82 Altered mental status, unspecified (principal); I10 Essential (primary) hypertension; E11.40 Type 2 diabetes mellitus with diabetic neuropathy, unspecified; F41.9 Anxiety disorder, unspecified; F17.210 Nicotine dependence, cigarettes, uncomplicated; Z79.4 Long term (current) use of insulin; Z53.21 Procedure and treatment not carried out due to patient leaving prior to being seen by health care provider
CPT/HCPCS: 36415; 70450; 80053; 80307; 80320; 81001; 82140; 82550; 82553; 83036; 84484; 85025; 85610; 85730; 93005; 93010; G0480; J7030

== ENCOUNTER 2017-09-13 00:31 | Inpatient (IN) | payer SELFPAY ==
[2017-09-13] MEDS ORDERED: KEPPRA 1,000 MG/NS 0.75% 100ML 1,000 MG/100 ML BAG IV ONE (00:46)
[2017-09-13 01:11] LABS: Hematocrit 39.1 % (35.5-45.6); Hemoglobin 12.9 gm/dl (11.8-15.2); Mean Corpuscular HGB Conc 33 % (32-34); Mean Corpuscular Hemoglobin 31 pg (28-32); Mean Corpuscular Volume 93 fl (84-94); Platelet Count 420 K/mm3 (140-440); Red Blood Count 4.22 M/mm3 (3.65-5.03); Red Cell Distribution Width 16.5 % (13.2-15.2)
[2017-09-13 01:27] LABS: Creatine Kinase MB 8.5 ng/mL (0.0-4.0)
[2017-09-13 01:28] LABS: BUN/Creatinine Ratio 52; Blood Urea Nitrogen 47 mg/dL (9-20); Calcium 6.8 mg/dL (8.4-10.2); Hemolysis Index 6
[2017-09-13] MEDS ORDERED: D50W (25GM) Vial IV ONE (01:37)
[2017-09-13] MEDS ORDERED: D50W (25GM) Syringe IV ONE ×4 (01:37→04:16)
[2017-09-13 02:03] LABS: Chol/HDL Ratio 1.58 %; HDL Cholesterol 65 mg/dL (40-59); LDL Cholesterol,Direct 31 mg/dL (50-130)
--- NOTE | 2017-09-13 02:06 | Emergency Department Report ---
HPI - General Chief Complaint: Seizure Time Seen by Provider: 09/13/17 00:44 - HPI HPI: [address] [address] --> room 25 The patient is a 52-year-old male presenting with a chief complaint of seizure. The patient was admitted to the hospital by myself approximately 2 days ago for altered mental status after being found behind another person's home and the ground and confused. The patient reportedly left the hospital AMA after admission but then decided to check back in. While in the waiting room the patient had a witnessed generalized tonic-clonic seizure. The patient is currently postictal Location: [See above] Duration: [See above] Quality: Generalized tonic-clonic Severity: Moderate Modifying factors: [see above] Context: [see above] Mode of transportation: [not driving] ED Past Medical Hx - Past Medical History Hx Hypertension: Yes Hx Diabetes: Yes Hx Psychiatric Treatment: Yes (Anxiety) Additional medical history: neuropathy - Surgical History Hx Cholecystectomy: Yes Additional Surgical History: hernia - Family History Family history: no significant - Social History Smoking Status: Current Every Day Smoker (1/2 pack per day) Substance Use Type: None (denies illicit drug use) - Medications Home Medications: Home Medications Medication Instructions Recorded Confirmed Last Taken Type Insulin NPH/Regular [NovoLIN 70/30] 25 unit SUB-Q BIDDIAB #2 vial 08/22/1709/11 Unknown Rx Lisinopril [Zestril TAB] 2.5 mg PO QDAY #30 tablet 08/22/17 09/11/17 Unknown Rx Metoprolol Xl [Metoprolol 25 mg PO QDAY #30 tablet 08/22/17 09/11/17 Unknown Rx SUCCINATE ER TAB] Pantoprazole [Protonix TAB] 40 mg PO QDAY #15 tablet 08/22/17 09/11/17 Unknown Rx Spironolactone [Aldactone] 50 mg PO QDAY #30 tablet 08/22/17 09/11/17 Unknown Rx oxyCODONE /ACETAMINOPHEN [Percocet 1 tab PO Q6H PRN #10 tablet 08/22/17 Unknown Rx 5/325 mg] ED Review of Systems ROS: Stated complaint: SEIZURE Other details as noted in HPI Comment: Unobtainable due to pts medical conditions Physical Exam - Physical Exam Vital Signs: Vital Signs 09/13/17 00:46 Pulse Rate 62 Respiratory 14 Rate Blood Pressure 114/76 O2 Sat by Pulse 93 Oximetry Physical Exam: GENERAL: The patient is well-developed thin male lying on stretcher in postictal state not appearing to be in acute distress HEENT: Normocephalic. Atraumatic. Extraocular motions are intact. Patient has moist mucous membranes. NECK: Supple. Trachea midline CHEST/LUNGS: Clear to auscultation. There is no respiratory distress noted. HEART/CARDIOVASCULAR: Regular. There is no tachycardia. There is no gallop rub or murmur. ABDOMEN: Abdomen is soft, nontender. Patient has normal bowel sounds. There is no abdominal distention. SKIN: There is no rash. There is no edema. There is no diaphoresis. NEURO: The patient is currently postictal. Patient opens eyes but does not speak MUSCULOSKELETAL: There is no evidence of acute injury. ED Course Vital Signs 09/13/17 00:46 Pulse Rate 62 Respiratory 14 Rate Blood Pressure 114/76 O2 Sat by Pulse 93 Oximetry ED Medical Decision Making - Lab Data Result diagrams: 09/13/17 00:51 09/13/17 00:51 Laboratory Tests 09/13/17 09/13/17 00:51 00:51 WBC 13.3 H RBC 4.22 Hgb 12.9 Hct 39.1 MCV 93 MCH 31 MCHC 33 RDW 16.5 H Plt Count 420 Sodium 142 Potassium 3.5 L Chloride 102.7 Carbon Dioxide 22 Anion Gap 21 BUN 47 H Creatinine 0.9 Estimated GFR > 60 BUN/Creatinine Ratio 52 Glucose 22 L* Calcium 6.8 L Magnesium 1.70 Total Creatine Kinase 77 CK-MB (CK-2) 8.5 H CK-MB (CK-2) Rel Index 11.0 H Troponin T 0.035 H D Triglycerides 48 Cholesterol 103 LDL Cholesterol Direct 31 L HDL Cholesterol 65 H Cholesterol/HDL Ratio 1.58 - EKG Data -: EKG Interpreted by Me EKG shows normal: sinus rhythm Rate: normal - EKG Data When compared to previous EKG there are: no significant change Interpretation: unchanged when compared t (02/07/2017) - Radiology Data Radiology results: report reviewed (CT head), image reviewed (CT head) [facility] [address] [place] [address] Cat Scan Report Signed Patient: JADA SINGER MR#: [id number] : 1965 Acct:[id number] Age/Sex: 52 / M ADM Date: 09/13/17 Loc: ED Attending Dr: Ordering Physician: JOSE ALFREDO TALAMANTES MD Date of Service: 09/13/17 Procedure(s): CT head/brain wo con Accession Number(s): [id number] cc: JOSE ALFREDO TALAMANTES MD FINAL REPORT EXAM: CT HEAD/BRAIN WO CON HISTORY: seizure TECHNIQUE: Routine axial imaging was obtained of the brain without IV contrast. Comparison is made the study of 09/11/2017. FINDINGS: There is mild atrophy. There is no evidence of acute stroke or hemorrhage. The ventricular system is appropriate in size and is symmetric. The basal cisterns appear normal. The sinuses reveal mild mucosal thickening in the left maxillary sinus. The mastoid air cells are well pneumatized. The calvarium appears intact IMPRESSION: Mild volume loss. No acute stroke or hemorrhage. Mild mucosal thickening in the left maxillary sinus. Transcribed By: RB Dictated By: ALLI PENNINGTON MD Electronically Authenticated By: ALLI PENNINGTON MD Signed Date/Time: 09/13/17208 DD/ 8 TD/TT: 09/13/17208 - Differential Diagnosis hypoglycemia, ICH, ACS Critical care attestation.: If time is entered above; I have spent that time in minutes in the direct care of this critically ill patient, excluding procedure time. ED Disposition Clinical Impression: Hypoglycemia, Elevated troponin, Seizure Disposition: OP ADMIT IP TO THIS HOSP Is pt being admited?: Yes Does the pt Need Aspirin: Yes Condition: Fair Time of Disposition: 02:22 (hospitalist paged (Dr. Jolene Beltran))
--- NOTE | 2017-09-13 02:14 | Cat Scan Report ---
FINAL REPORT EXAM: CT HEAD/BRAIN WO CON HISTORY: seizure TECHNIQUE: Routine axial imaging was obtained of the brain without IV contrast. Comparison is made the study of 09/11/2017. FINDINGS: There is mild atrophy. There is no evidence of acute stroke or hemorrhage. The ventricular system is appropriate in size and is symmetric. The basal cisterns appear normal. The sinuses reveal mild mucosal thickening in the left maxillary sinus. The mastoid air cells are well pneumatized. The calvarium appears intact IMPRESSION: Mild volume loss. No acute stroke or hemorrhage. Mild mucosal thickening in the left maxillary sinus.
[2017-09-13] MEDS ORDERED: ASPIRIN PO ONE (02:22)
[2017-09-13 02:32] LABS: Band Neutrophils # (Manual) 0.3 K/mm3; Basophils % (Manual) 0 % (0.0-1.8); Eosinophils % (Manual) 0 % (0.0-4.3); Myelocytes # (Manual) 0.1 K/mm3; Platelet Estimate Consistent w Auto; Total Cells Counted 100
[2017-09-13] MEDS ORDERED: D5/0.45NS 1,000 ML IV SCH (05:00)
--- NOTE | 2017-09-13 08:02 | History and Physical Report ---
History of Present Illness Date of examination: 09/13/17 Date of admission: 09/13/17 02:26 Chief complaint: Seizure d/o, hypoglycemia, history of diabetes mellitus, History of present illness: The patient is a 52-year-old male was admitted to this hospital on 09/11/2017 for altered mental status. At that time [place] in somebody's else's [place] yard, confused. However, patient reportedly left the hospital AMA after admission but then decided to check back in. While in the waiting room the patient had a witnessed generalized tonic-clonic seizure. Blood glucose was 22. Cardiac enzymes were elevated slighly. EKG showed normal sinus rhythm. CT scan of the brain was unremarkable. Admission was requested. A1c on 09/11/17 was 10.8. The patient had four admissions to this hospital in the past 1 month. Patient post ictal at the time of this evaluation. Most history was therefore obtained from emergency room medical records. Past History Past Medical History: diabetes, heart failure, hypertension, other ( transaminasemia, hypokalemia, hypoglycemia) Past Surgical History: hernia repair Social history: smoking, alcohol abuse Family history: other (couldn't be obtained patient is post ictal) Medications and Allergies Allergies Allergy/AdvReac Type Severity Reaction Status Date / Time No Known Allergies Allergy Verified 08/17/17 13:14 Home Medications Medication Instructions Recorded Confirmed Last Taken Type Insulin NPH/Regular [NovoLIN 70/30] 25 unit SUB-Q BIDDIAB #2 vial 08/22/1709/11 Unknown Rx Lisinopril [Zestril TAB] 2.5 mg PO QDAY #30 tablet 08/22/17 09/11/17 Unknown Rx Metoprolol Xl [Metoprolol 25 mg PO QDAY #30 tablet 08/22/17 09/11/17 Unknown Rx SUCCINATE ER TAB] Pantoprazole [Protonix TAB] 40 mg PO QDAY #15 tablet 08/22/17 09/11/17 Unknown Rx Spironolactone [Aldactone] 50 mg PO QDAY #30 tablet 08/22/17 09/11/17 Unknown Rx oxyCODONE /ACETAMINOPHEN [Percocet 1 tab PO Q6H PRN #10 tablet 08/22/17 Unknown Rx 5/325 mg] Active Meds: Active Medications Dextrose (D50w (25gm) Syringe) 50 ml IV PRN PRN PRN Reason: Hypoglycemia Heparin Sodium (Porcine) (Heparin) 5,000 unit SUB-Q Q12HR MEENAKSHI Dextrose/Sodium Chloride (D5/0.45ns) 1,000 mls @ 75 mls/hr IV DIRECT MEENAKSHI Insulin Human Lispro (Humalog) 0 unit SUB-Q ACHS MEENAKSHI; Protocol Lisinopril (Zestril) 2.5 mg PO QDAY MEENAKSHI Metoprolol Succinate (Toprol Xl) 25 mg PO QDAY MEENAKSHI Spironolactone (Aldactone) 50 mg PO QDAY MEENAKSHI Review of Systems ROS unobtainable: due to mental status Exam - Constitutional Vitals: Temp Pulse Resp BP Pulse Ox 97.7 F 72 14 137/94 93 09/13/17 04:00 09/13/17 05:45 09/13/17 05:45 09/13/17 05:45 09/13/17 02:05 General appearance: Present: other (post ictal and confused) - EENT Eyes: Present: PERRL ENT: hearing intact, clear oral mucosa - Neck Neck: Present: supple, normal ROM - Respiratory Respiratory effort: normal Respiratory: bilateral: CTA - Cardiovascular Heart Sounds: Present: S1 & S2. Absent: rub, click - Extremities Extremities: pulses symmetrical, No edema Peripheral Pulses: within normal limits - Abdominal General gastrointestinal: Present: soft, non-tender, non-distended, normal bowel sounds - Integumentary Integumentary: Present: clear, warm, dry - Musculoskeletal Musculoskeletal: generalized weakness - Psychiatric Psychiatric: appropriate mood/affect, intact judgment & insight, other (confused ) - Neurologic Neurologic: CNII-XII intact, moves all extremities Results - Labs CBC & Chem 7: 09/13/17 00:51 09/13/17 00:51 Labs: Abnormal lab results 09/13/17 09/13/17 09/13/17 Range/Units 00:51 00:51 02:12 WBC 13.3 H (4.5-11.0) K/mm3 RDW 16.5 H (13.2-15.2) % Seg Neuts % (Manual) 89.0 H (40.0-70.0) % Lymphocytes % (Manual) 7.0 L (13.4-35.0) % Seg Neutrophils # Man 11.8 H (1.8-7.7) K/mm3 Lymphocytes # (Manual) 0.9 L (1.2-5.4) K/mm3 Potassium 3.5 L (3.6-5.0) mmol/L BUN 47 H (9-20) mg/dL Glucose 22 L* (75-100) mg/dL POC Glucose 124 H (70-105) Calcium 6.8 L (8.4-10.2) mg/dL CK-MB (CK-2) 8.5 H (0.0-4.0) ng/mL CK-MB (CK-2) Rel Index 11.0 H (0-4) Troponin T 0.035 H D (0.00-0.029) ng/mL LDL Cholesterol Direct 31 L (50-130) mg/dL HDL Cholesterol 65 H (40-59) mg/dL 09/13/17 Range/Units 04:00 WBC (4.5-11.0) K/mm3 RDW (13.2-15.2) % Seg Neuts % (Manual) (40.0-70.0) % Lymphocytes % (Manual) (13.4-35.0) % Seg Neutrophils # Man (1.8-7.7) K/mm3 Lymphocytes # (Manual) (1.2-5.4) K/mm3 Potassium (3.6-5.0) mmol/L BUN (9-20) mg/dL Glucose (75-100) mg/dL POC Glucose 68 L (70-105) Calcium (8.4-10.2) mg/dL CK-MB (CK-2) (0.0-4.0) ng/mL CK-MB (CK-2) Rel Index (0-4) Troponin T (0.00-0.029) ng/mL LDL Cholesterol Direct (50-130) mg/dL HDL Cholesterol (40-59) mg/dL Assessment and Plan -Seizure most likely secondary hypoglycemia and presence of amphetamine abuse Seizure precautions The patient has been optimized and emergency room after given D50 - Hypoglycemia Assessment and hypoglycemic events in the absence of any adequate caloric intake -Hypokalemia We'll supplement and trend Check magnesium level -Elevated cardiac enzymes Doubt if this is gynecologic in origin Will obtain serial cardiac enzymes Commence aspirin, nitroglycerin, No chest pain reported -Leukocytosis Likely marginalization from seizure activity We will trend -Amphetamine use disorder We'll educational guidance counselor on cessation DVT Prophylaxis with Lovenox
[2017-09-13] MEDS ORDERED: NITRO-BID 2% TP NR (08:18)
--- NOTE | 2017-09-13 08:54 | XRay Report ---
AP CHEST: HISTORY: Altered mental status Moderate to severe emphysematous changes are identified. There is no evidence for consolidation, pleural effusion or pneumothorax. Normal heart size and pulmonary vascularity. The thoracic cage is grossly intact. IMPRESSION: Emphysematous changes. No acute process.
[2017-09-13] MEDS ORDERED: KCL 20MEQ/100ML 20 MEQ/100 ML BAG IV SCH (09:00)
[2017-09-13] MEDS: KCL 10MEQ/100ML 10 MEQ/100 ML BAG IV SCH ×4 (09:52→13:08)
[2017-09-13] MEDS ORDERED: TOPROL XL PO SCH (10:00)
[2017-09-13] MEDS: ZESTRIL PO SCH (10:52)
[2017-09-13] MEDS: HEPARIN SUB-Q SCH ×2 (10:52→21:42)
[2017-09-13] MEDS: ASPIRIN PO SCH (10:52)
[2017-09-13] MEDS: LOPRESSOR PO SCH ×2 (10:52→23:00)
[2017-09-13] MEDS: ALDACTONE PO SCH (11:02)
[2017-09-13] MEDS: HumaLOG SUB-Q SCH ×2 (11:20→16:30)
[2017-09-13] MEDS: D5NS 0.2% 1,000 ML IV SCH ×2 (13:22→18:49)
[2017-09-13] MEDS: NORCO 5/325 PO PRN (18:09)
[2017-09-13 22:17] LABS: Creatinine,Urine 9.9 mg/dL (0.1-20.0)
[2017-09-13 22:26] LABS: Microalbumin/Creatinine Ratio 121.2 ug/mg
[2017-09-14] MEDS: NORCO 5/325 PO PRN ×4 (02:50→21:59)
[2017-09-14 06:29] LABS: Basophils % (Auto) 0.1 % (0.0-1.8); Hematocrit 36.4 % (35.5-45.6); Hemoglobin 12.2 gm/dl (11.8-15.2); Lymphocytes # (Auto) 1.5 K/mm3 (1.2-5.4); Lymphocytes % (Auto) 11.7 % (13.4-35.0); Mean Corpuscular HGB Conc 34 % (32-34); Mean Corpuscular Hemoglobin 30 pg (28-32); Mean Corpuscular Volume 91 fl (84-94); Monocytes # (Auto) 0.4 K/mm3 (0.0-0.8); Monocytes % (Auto) 2.9 % (0.0-7.3); Platelet Count 320 K/mm3 (140-440); Red Blood Count 4.01 M/mm3 (3.65-5.03); Red Cell Distribution Width 15.8 % (13.2-15.2)
[2017-09-14 06:35] LABS: INR 1.18 (0.87-1.13)
[2017-09-14 06:55] LABS: Alanine Aminotransferase 100 units/L (7-56); Albumin 2.1 g/dL (3.9-5); BUN/Creatinine Ratio 67; Blood Urea Nitrogen 47 mg/dL (9-20); Hemolysis Index 1
[2017-09-14 07:11] LABS: Calcium 5.7 mg/dL (8.4-10.2)
[2017-09-14] MEDS: HumaLOG SUB-Q SCH ×5 (09:05→21:59)
[2017-09-14] MEDS: ZESTRIL PO SCH (09:15)
[2017-09-14] MEDS: ALDACTONE PO SCH (09:16)
[2017-09-14] MEDS: ASPIRIN PO SCH (09:16)
[2017-09-14] MEDS: LOPRESSOR PO SCH ×2 (09:16→21:51)
[2017-09-14] MEDS: HEPARIN SUB-Q SCH ×2 (09:17→22:00)
--- NOTE | 2017-09-14 09:58 | Progress Note ---
Assessment and Plan -Seizure most likely secondary hypoglycemia and presence of amphetamine abuse Seizure precautions The patient has been optimized and emergency room after given D50 - Hypoglycemia Assessment and hypoglycemic events in the absence of any adequate caloric intake Polysubsance abuse couselling on cessation done -Hypokalemia We'll supplement and trend Check magnesium level -Elevated cardiac enzymes Doubt if this is gynecologic in origin Will obtain serial cardiac enzymes Commence aspirin, nitroglycerin, No chest pain reported -Leukocytosis Likely marginalization from seizure activity We will trend -Amphetamine use disorder We'll equal opportunity counselor on cessation DVT Prophylaxis with Lovenox Subjective Date of service: 09/14/17 Principal diagnosis: acute hypoxemic respiratory failure, Interval history: still short of breath. Objective - Constitutional Vitals: Vital Signs - 12hr 09/14/17 09/14/17 09/14/17 00:43 05:40 08:47 Temperature 97.5 F L 97.9 F 97.6 F Pulse Rate 63 78 Respiratory 20 20 17 Rate Blood Pressure 100/74 94/66 Blood Pressure 95/68 [Right] O2 Sat by Pulse 99 93 Oximetry General appearance: Present: no acute distress, well-nourished - EENT Eyes: PERRL, EOM intact ENT: clear oral mucosa - Neck Neck: supple, normal ROM - Respiratory Respiratory effort: normal Respiratory: bilateral: diminished - Breasts Breasts: normal - Cardiovascular Rhythm: regular Heart Sounds: Present: S1 & S2. Absent: gallop, rub Extremities: pulses intact, No edema, normal color, Full ROM - Gastrointestinal General gastrointestinal: Present: soft, non-tender, non-distended, normal bowel sounds - Genitourinary Male genitourinary: normal - Integumentary Integumentary: clear, warm, dry - Musculoskeletal Musculoskeletal: 1, strength equal bilaterally - Neurologic Neurologic: moves all extremities - Psychiatric Psychiatric: memory intact, appropriate mood/affect, intact judgment & insight - Labs CBC & Chem 7: 09/14/17 05:43 09/14/17 05:43 Labs: Abnormal lab results 09/13/17 09/13/17 09/14/17 Range/Units 11:20 22:47 05:43 WBC 12.5 H (4.5-11.0) K/mm3 RDW 15.8 H (13.2-15.2) % Lymph % (Auto) 11.7 L (13.4-35.0) % Seg Neutrophils % 85.3 H (40.0-70.0) % Seg Neutrophils # 10.6 H (1.8-7.7) K/mm3 PT (12.2-14.9) Sec. INR (0.87-1.13) Potassium (3.6-5.0) mmol/L BUN (9-20) mg/dL Creatinine (0.8-1.5) mg/dL POC Glucose 166 H 199 H (70-105) Calcium (8.4-10.2) mg/dL Magnesium (1.7-2.3) mg/dL AST (5-40) units/L ALT (7-56) units/L Alkaline Phosphatase (35-129) units/L Total Protein (6.3-8.2) g/dL Albumin (3.9-5) g/dL 09/14/17 09/14/17 Range/Units 05:43 05:43 WBC (4.5-11.0) K/mm3 RDW (13.2-15.2) % Lymph % (Auto) (13.4-35.0) % Seg Neutrophils % (40.0-70.0) % Seg Neutrophils # (1.8-7.7) K/mm3 PT 15.7 H (12.2-14.9) Sec. INR 1.18 H (0.87-1.13) Potassium 3.0 L (3.6-5.0) mmol/L BUN 47 H (9-20) mg/dL Creatinine 0.7 L (0.8-1.5) mg/dL POC Glucose (70-105) Calcium 5.7 L* D (8.4-10.2) mg/dL Magnesium 1.30 L (1.7-2.3) mg/dL AST 192 H (5-40) units/L ALT 100 H (7-56) units/L Alkaline Phosphatase 695 H (35-129) units/L Total Protein 4.3 L D (6.3-8.2) g/dL Albumin 2.1 L (3.9-5) g/dL
[2017-09-14] MEDS ORDERED: CALCIUM GLUCONATE 1,000 MG in NACL 0.9% 100 ML IV ONE (10:00)
[2017-09-14] MEDS: D5NS 0.2% 1,000 ML IV SCH (15:04)
[2017-09-14] MEDS: KCL 10MEQ/100ML 10 MEQ/100 ML BAG IV SCH ×4 (15:05→22:10)
[2017-09-15] MEDS: KCL 10MEQ/100ML 10 MEQ/100 ML BAG IV SCH (00:17)
--- NOTE | 2017-09-15 02:13 | Progress Note ---
Assessment and Plan Assessment and plan: 52m who pw seizure. he was seen in ER, then signed out ama, after which he decided to check back in, While in the waiting room the patient had a witnessed generalized tonic-clonic seizure. -Seizure most likely secondary hypoglycemia and presence of amphetamine abuse Seizure precautions, for EEG today He improved after receiving D50 - Hypoglycemia Assessment and hypoglycemic events in the absence of any adequate caloric intake Polysubsance abuse couselling on cessation done Hypomagnesemia Replete Hypocalcemia Has been replete however corrected calcium when corrected for albumin is still 7.2, we'll give oral and IV calcium. -Hypokalemia We'll supplement and trend Check magnesium level -Elevated cardiac enzymes Doubt if this is cardiac in origin Will obtain serial cardiac enzymes Commence aspirin, nitroglycerin, No chest pain reported -Leukocytosis Likely marginalization from seizure activity We will trend -Amphetamine use disorder He has been counseled on cessation Severe malnutrition Dietitian consult Case discussed with case management, patient is homeless and will need assisted placement DVT Prophylaxis with Lovenox History Interval history: Review of systems Constitutional: He is complaining of generalized weakness CVS: No chest pain, no orthopnea, no dyspnea on exertion, has mild pedal edema GI: No abdominal pain, no diarrhea, no vomiting, no constipation Respiratory: No shortness of breath, no wheezing, no coughing Neuro; no seizures today Hospitalist Physical - Physical exam Narrative exam: General.: Appears chronically ill, emaciated HEENT: Moist mucous membranes, extraocular muscles intact, no lymphadenopathy Neck: supple Cardiac: S1-S2 heard Lungs: clear to auscultation bilaterally Abdomen: soft , nontender, nondistended, bowel sounds positive Extremities: 1+ pedal edema Skin: Patient has small wound on his shins Neurologic: no gross focal deficits Psych: appropriate behavior, appropriate mood, corporative, judgment intact - Constitutional Vitals: Temp Pulse Resp BP Pulse Ox 98.5 F 62 18 123/72 97 09/14/17 23:31 09/14/17 21:11 09/14/17 23:31 09/14/17 23:31 09/14/17 21:11 General appearance: Present: no acute distress, well-nourished Results - Labs CBC & Chem 7: 09/16/17 05:47 09/18/17 05:22 Labs: Laboratory Last Values WBC 12.5 K/mm3 (4.5-11.0) H 09/14/17 05:43 RBC 4.01 M/mm3 (3.65-5.03) 09/14/17 05:43 Hgb 12.2 gm/dl (11.8-15.2) 09/14/17 05:43 Hct 36.4 % (35.5-45.6) 09/14/17 05:43 MCV 91 fl (84-94) 09/14/17 05:43 MCH 30 pg (28-32) 09/14/17 05:43 MCHC 34 % (32-34) 09/14/17 05:43 RDW 15.8 % (13.2-15.2) H 09/14/17 05:43 Plt Count 320 K/mm3 (140-440) 09/14/17 05:43 Lymph % (Auto) 11.7 % (13.4-35.0) L 09/14/17 05:43 [place] % (Auto) 2.9 % (0.0-7.3) 09/14/17 05:43 Eos % (Auto) 0.0 % (0.0-4.3) 09/14/17 05:43 Baso % (Auto) 0.1 % (0.0-1.8) 09/14/17 05:43 Lymph # 1.5 K/mm3 (1.2-5.4) 09/14/17 05:43 [place] # 0.4 K/mm3 (0.0-0.8) 09/14/17 05:43 Eos # 0.0 K/mm3 (0.0-0.4) 09/14/17 05:43 Baso # 0.0 K/mm3 (0.0-0.1) 09/14/17 05:43 Add Manual Diff Complete 09/13/17 00:51 Total Counted 100 09/13/17 00:51 Seg Neutrophils % 85.3 % (40.0-70.0) H 09/14/17 05:43 Seg Neuts % (Manual) 89.0 % (40.0-70.0) H 09/13/17 00:51 Band Neutrophils % 2.0 % 09/13/17 00:51 Lymphocytes % (Manual) 7.0 % (13.4-35.0) L 09/13/17 00:51 Reactive Lymphs % (Man) 0 % 09/13/17 00:51 Monocytes % (Manual) 1.0 % (0.0-7.3) 09/13/17 00:51 Eosinophils % (Manual) 0 % (0.0-4.3) 09/13/17 00:51 Basophils % (Manual) 0 % (0.0-1.8) 09/13/17 00:51 Metamyelocytes % 0 % 09/13/17 00:51 Myelocytes % 1.0 % 09/13/17 00:51 Promyelocytes % 0 % 09/13/17 00:51 Blast Cells % 0 % 09/13/17 00:51 Nucleated RBC % Not Reportable 09/13/17 00:51 Seg Neutrophils # 10.6 K/mm3 (1.8-7.7) H 09/14/17 05:43 Seg Neutrophils # Man 11.8 K/mm3 (1.8-7.7) H 09/13/17 00:51 Band Neutrophils # 0.3 K/mm3 09/13/17 00:51 Lymphocytes # (Manual) 0.9 K/mm3 (1.2-5.4) L 09/13/17 00:51 Abs React Lymphs (Man) 0.0 K/mm3 09/13/17 00:51 Monocytes # (Manual) 0.1 K/mm3 (0.0-0.8) 09/13/17 00:51 Eosinophils # (Manual) 0.0 K/mm3 (0.0-0.4) 09/13/17 00:51 Basophils # (Manual) 0.0 K/mm3 (0.0-0.1) 09/13/17 00:51 Metamyelocytes # 0.0 K/mm3 09/13/17 00:51 Myelocytes # 0.1 K/mm3 09/13/17 00:51 Promyelocytes # 0.0 K/mm3 09/13/17 00:51 Blast Cells # 0.0 K/mm3 09/13/17 00:51 WBC Morphology Not Reportable 09/13/17 00:51 Hypersegmented Neuts Not Reportable 09/13/17 00:51 Hyposegmented Neuts Not Reportable 09/13/17 00:51 Hypogranular Neuts Not Reportable 09/13/17 00:51 Smudge Cells Not Reportable 09/13/17 00:51 Toxic Granulation Not Reportable 09/13/17 00:51 Toxic Vacuolation Not Reportable 09/13/17 00:51 Dohle Bodies Not Reportable 09/13/17 00:51 Pelger-Huet Anomaly Not Reportable 09/13/17 00:51 Tray Rods Not Reportable 09/13/17 00:51 Platelet Estimate Consistent w auto 09/13/17 00:51 Clumped Platelets Not Reportable 09/13/17 00:51 Plt Clumps, EDTA Not Reportable 09/13/17 00:51 Large Platelets Not Reportable 09/13/17 00:51 Giant Platelets Not Reportable 09/13/17 00:51 Platelet Satelliting Not Reportable 09/13/17 00:51 Plt Morphology Comment Not Reportable 09/13/17 00:51 RBC Morphology Not Reportable 09/13/17 00:51 Dimorphic RBCs Not Reportable 09/13/17 00:51 Polychromasia Not Reportable 09/13/17 00:51 Hypochromasia Not Reportable 09/13/17 00:51 Poikilocytosis Not Reportable 09/13/17 00:51 Anisocytosis Not Reportable 09/13/17 00:51 Microcytosis Not Reportable 09/13/17 00:51 Macrocytosis Not Reportable 09/13/17 00:51 Spherocytes Not Reportable 09/13/17 00:51 Pappenheimer Bodies Not Reportable 09/13/17 00:51 Sickle Cells Not Reportable 09/13/17 00:51 Target Cells Not Reportable 09/13/17 00:51 Tear Drop Cells Not Reportable 09/13/17 00:51 Ovalocytes Not Reportable 09/13/17 00:51 Helmet Cells Not Reportable 09/13/17 00:51 [place] Bodies Not Reportable 09/13/17 00:51 [place] Rings Not Reportable 09/13/17 00:51 [place] Cells Not Reportable 09/13/17 00:51 Bite Cells Not Reportable 09/13/17 00:51 Crenated Cell Not Reportable 09/13/17 00:51 Elliptocytes Not Reportable 09/13/17 00:51 Acanthocytes (Spur) Not Reportable 09/13/17 00:51 Rouleaux Not Reportable 09/13/17 00:51 Hemoglobin C Crystals Not Reportable 09/13/17 00:51 Schistocytes Not Reportable 09/13/17 00:51 Malaria parasites Not Reportable 09/13/17 00:51 Danie Bodies Not Reportable 09/13/17 00:51 Hem Pathologist Commnt No 09/13/17 00:51 PT 15.7 Sec. (12.2-14.9) H 09/14/17 05:43 INR 1.18 (0.87-1.13) H 09/14/17 05:43 Sodium 139 mmol/L (137-145) 09/14/17 05:43 Potassium 3.0 mmol/L (3.6-5.0) L 09/14/17 05:43 Chloride 101.4 mmol/L (98-107) 09/14/17 05:43 Carbon Dioxide 23 mmol/L (22-30) 09/14/17 05:43 Anion Gap 18 mmol/L 09/14/17 05:43 BUN 47 mg/dL (9-20) H 09/14/17 05:43 Creatinine 0.7 mg/dL (0.8-1.5) L 09/14/17 05:43 Estimated GFR > 60 ml/min 09/14/17 05:43 BUN/Creatinine Ratio 67 % 09/14/17 05:43 Glucose 92 mg/dL (75-100) 09/14/17 05:43 POC Glucose 263 (70-105) H 09/14/17 21:19 Calcium 5.7 mg/dL (8.4-10.2) L* D 09/14/17 05:43 Phosphorus 4.20 mg/dL (2.5-4.5) 09/14/17 05:43 Magnesium 1.30 mg/dL (1.7-2.3) L 09/14/17 05:43 Total Bilirubin 0.40 mg/dL (0.1-1.2) 09/14/17 05:43 AST 192 units/L (5-40) H 09/14/17 05:43 ALT 100 units/L (7-56) H 09/14/17 05:43 Alkaline Phosphatase 695 units/L (35-129) H 09/14/17 05:43 Total Creatine Kinase 77 units/L (55-170) 09/13/17 00:51 CK-MB (CK-2) 8.5 ng/mL (0.0-4.0) H 09/13/17 00:51 CK-MB (CK-2) Rel Index 11.0 (0-4) H 09/13/17 00:51 Troponin T 0.035 ng/mL (0.00-0.029) H D 09/13/17 00:51 NT-Pro-B Natriuret Pep 2723 pg/mL (0-900) H 09/13/17 00:51 Total Protein 4.3 g/dL (6.3-8.2) L D 09/14/17 05:43 Albumin 2.1 g/dL (3.9-5) L 09/14/17 05:43 Albumin/Globulin Ratio 1.0 % 09/14/17 05:43 Triglycerides 48 mg/dL (2-149) 09/13/17 00:51 Cholesterol 103 mg/dL (50-199) 09/13/17 00:51 LDL Cholesterol Direct 31 mg/dL (50-130) L 09/13/17 00:51 HDL Cholesterol 65 mg/dL (40-59) H 09/13/17 00:51 Cholesterol/HDL Ratio 1.58 % 09/13/17 00:51 Urine Creatinine 9.9 mg/dL (0.1-20.0) 09/13/17 21:57 Urine Microalbumin < 1.2 mg/dL (0.1-34.0) 09/13/17 21:57 Microalb/Creat Ratio 121.2 ug/mg 09/13/17 21:57
[2017-09-15] MEDS ORDERED: ATIVAN IV PRN (02:32)
[2017-09-15] MEDS ORDERED: KEPPRA 500 MG in NACL 0.9% 100 ML IV SCH (03:00)
[2017-09-15] MEDS: KEPPRA 500 MG/NS 0.82% 100 ML 500 MG/100 ML BAG IV SCH ×3 (03:09→21:57)
[2017-09-15] MEDS: D50W (25GM) Syringe IV PRN ×2 (06:44→11:41)
[2017-09-15] MEDS: HumaLOG SUB-Q SCH ×4 (08:40→22:09)
[2017-09-15 08:54] LABS: Alanine Aminotransferase 232 units/L (7-56); Albumin 1.7 g/dL (3.9-5); BUN/Creatinine Ratio 49; Blood Urea Nitrogen 39 mg/dL (9-20); Hemolysis Index 37
[2017-09-15 09:06] LABS: Calcium 5.4 mg/dL (8.4-10.2)
[2017-09-15] MEDS: LOPRESSOR PO SCH ×2 (09:14→21:57)
[2017-09-15] MEDS: ZESTRIL PO SCH (09:14)
[2017-09-15] MEDS: ASPIRIN PO SCH (09:14)
[2017-09-15] MEDS: ALDACTONE PO SCH (09:14)
[2017-09-15] MEDS: HEPARIN SUB-Q SCH ×2 (09:15→21:58)
[2017-09-15] MEDS ORDERED: CALCIUM GLUCONATE 2,000 MG in NACL 0.9% 100 ML IV ONE (11:00)
[2017-09-15] MEDS ORDERED: MAGNESIUM SULFATE 4GM/100ML 4 GM/100 ML BAG IV ONE (12:00)
[2017-09-15] MEDS: CALCIUM GLUCONATE PO SCH ×2 (13:35→22:10)
[2017-09-15 16:36] LABS: Basophils # (Auto) 0.1 K/mm3 (0.0-0.1); Basophils % (Auto) 0.4 % (0.0-1.8); Hematocrit 36.8 % (35.5-45.6); Hemoglobin 12.2 gm/dl (11.8-15.2); Lymphocytes % (Auto) 7.3 % (13.4-35.0); Mean Corpuscular HGB Conc 33 % (32-34); Mean Corpuscular Hemoglobin 31 pg (28-32); Mean Corpuscular Volume 92 fl (84-94); Monocytes # (Auto) 0.3 K/mm3 (0.0-0.8); Monocytes % (Auto) 2.6 % (0.0-7.3); Platelet Count 278 K/mm3 (140-440); Red Blood Count 4.02 M/mm3 (3.65-5.03); Red Cell Distribution Width 16.4 % (13.2-15.2)
[2017-09-15] MEDS: D5NS 0.2% 1,000 ML IV SCH (18:45)
[2017-09-15] MEDS: NORCO 5/325 PO PRN (22:00)
--- NOTE | 2017-09-15 23:45 | Electroencephalogram Report ---
Electroencephalogram EEG Date of exam: 09/15/17 Description: The waking background shows an appropriate organization with well-defined anterior posterior voltage and frequency gradients. Posteriorly, there is a well -developed alpha rhythm of [ ] Hz which is symmetrical and bilaterally reactive. Anteriorly, there is a pattern of lower voltage and slightly irregular theta and beta range frequencies. During drowsiness, there is attenuation of the background rhythms. The sleep background shows normal organization with well-formed sleep spindles and vertex waves which are synchronous and symmetrical. Throughout, the recording there are no epileptiform abnormalities, focal or lateralizing features, or significant interhemispheric findings. Interpretation: Preliminary readin Hz alpha activity posteriorly which is a little slow, some slowing of background bilaterally but nonfocal.
[2017-09-16] MEDS: NORCO 5/325 PO PRN (04:08)
[2017-09-16] MEDS: D5NS 0.2% 1,000 ML IV SCH (05:21)
[2017-09-16 07:09] LABS: Basophils % (Auto) 0.1 % (0.0-1.8); Eosinophils % (Auto) 0.1 % (0.0-4.3); Hematocrit 35.7 % (35.5-45.6); Hemoglobin 11.9 gm/dl (11.8-15.2); Lymphocytes # (Auto) 1.7 K/mm3 (1.2-5.4); Lymphocytes % (Auto) 12.8 % (13.4-35.0); Mean Corpuscular HGB Conc 33 % (32-34); Mean Corpuscular Hemoglobin 31 pg (28-32); Mean Corpuscular Volume 93 fl (84-94); Monocytes # (Auto) 0.5 K/mm3 (0.0-0.8); Monocytes % (Auto) 3.7 % (0.0-7.3); Platelet Count 258 K/mm3 (140-440); Red Blood Count 3.86 M/mm3 (3.65-5.03)
[2017-09-16 07:20] LABS: Alanine Aminotransferase 191 units/L (7-56); Albumin 1.9 g/dL (3.9-5); BUN/Creatinine Ratio 50; Blood Urea Nitrogen 30 mg/dL (9-20); Hemolysis Index 10
[2017-09-16 07:39] LABS: Calcium TNR mg/dL (8.4-10.2)
[2017-09-16] MEDS: HumaLOG SUB-Q SCH ×4 (10:51→23:43)
[2017-09-16] MEDS: ALDACTONE PO SCH (10:53)
[2017-09-16] MEDS: ZESTRIL PO SCH (10:53)
[2017-09-16] MEDS: LOPRESSOR PO SCH ×2 (10:54→23:49)
[2017-09-16] MEDS: ASPIRIN PO SCH (10:55)
[2017-09-16] MEDS: HEPARIN SUB-Q SCH ×2 (10:55→21:39)
[2017-09-16] MEDS: CALCIUM GLUCONATE PO SCH ×2 (10:56→22:56)
[2017-09-16] MEDS: KEPPRA 500 MG/NS 0.82% 100 ML 500 MG/100 ML BAG IV SCH ×2 (11:14→21:41)
[2017-09-16 14:20] LABS: Alanine Aminotransferase 215 units/L (7-56); Albumin 1.8 g/dL (3.9-5); BUN/Creatinine Ratio 58; Blood Urea Nitrogen 29 mg/dL (9-20); Hemolysis Index 6
[2017-09-16 14:29] LABS: Calcium 5.7 mg/dL (8.4-10.2)
[2017-09-16] MEDS ORDERED: MAGNESIUM SULFATE 4GM/100ML 4 GM/100 ML BAG IV ONE (15:58)
[2017-09-16] MEDS ORDERED: NACL 0.9% 1000 ML 1,000 ML with KCL 80 MEQ IV ONE (15:59)
[2017-09-16] MEDS ORDERED: CALCIUM GLUCONATE 2,000 MG in NACL 0.9% 100 ML IV ONE (16:00)
[2017-09-16] MEDS: SLOW-MAG PO SCH (17:40)
[2017-09-16] MEDS: K-DUR PO SCH ×2 (17:46→22:55)
--- NOTE | 2017-09-16 19:15 | Progress Note ---
Assessment and Plan Assessment and plan: 52m who pw seizure. he was seen in ER, then signed out ama, after which he decided to check back in, While in the waiting room the patient had a witnessed generalized tonic-clonic seizure. -Seizure most likely secondary hypoglycemia and presence of amphetamine abuse Seizure precautions, for EEG today He improved after receiving D50 - Hypoglycemia Assessment and hypoglycemic events in the absence of any adequate caloric intake Polysubsance abuse couselling on cessation done Hypomagnesemia Replete Hypocalcemia Has been replete however corrected calcium when corrected for albumin is still 7.2, we'll give oral and IV calcium. -Hypokalemia We'll supplement and trend Check magnesium level -Elevated cardiac enzymes Doubt if this is cardiac in origin Will obtain serial cardiac enzymes Commence aspirin, nitroglycerin, No chest pain reported -Leukocytosis Likely marginalization from seizure activity We will trend -Amphetamine use disorder He has been counseled on cessation Severe malnutrition Dietitian consult Case discussed with case management, patient is homeless and will need nursing home placement DVT Prophylaxis with Lovenox History Interval history: Review of systems Constitutional: He is complaining of generalized weakness CVS: No chest pain, no orthopnea, no dyspnea on exertion, has mild pedal edema GI: No abdominal pain, no diarrhea, no vomiting, no constipation Respiratory: No shortness of breath, no wheezing, no coughing Neuro; no seizures today Hospitalist Physical - Physical exam Narrative exam: General.: Appears chronically ill, emaciated HEENT: Moist mucous membranes, extraocular muscles intact, no lymphadenopathy Neck: supple Cardiac: S1-S2 heard Lungs: clear to auscultation bilaterally Abdomen: soft , nontender, nondistended, bowel sounds positive Extremities: 1+ pedal edema Skin: Patient has small wound on his shins Neurologic: no gross focal deficits Psych: appropriate behavior, appropriate mood, corporative, judgment intact - Constitutional Vitals: Temp Pulse Resp BP Pulse Ox 97.7 F 62 20 142/82 100 09/16/17 16:50 09/16/17 16:50 09/16/17 16:50 09/16/17 16:50 09/16/17 16:50 General appearance: Present: no acute distress, well-nourished Results - Labs CBC & Chem 7: 09/16/17 05:47 09/18/17 05:22 Labs: Laboratory Last Values WBC 13.4 K/mm3 (4.5-11.0) H 09/16/17 05:47 RBC 3.86 M/mm3 (3.65-5.03) 09/16/17 05:47 Hgb 11.9 gm/dl (11.8-15.2) 09/16/17 05:47 Hct 35.7 % (35.5-45.6) 09/16/17 05:47 MCV 93 fl (84-94) 09/16/17 05:47 MCH 31 pg (28-32) 09/16/17 05:47 MCHC 33 % (32-34) 09/16/17 05:47 RDW 16.0 % (13.2-15.2) H 09/16/17 05:47 Plt Count 258 K/mm3 (140-440) 09/16/17 05:47 Lymph % (Auto) 12.8 % (13.4-35.0) L 09/16/17 05:47 [place] % (Auto) 3.7 % (0.0-7.3) 09/16/17 05:47 Eos % (Auto) 0.1 % (0.0-4.3) 09/16/17 05:47 Baso % (Auto) 0.1 % (0.0-1.8) 09/16/17 05:47 Lymph # 1.7 K/mm3 (1.2-5.4) 09/16/17 05:47 [place] # 0.5 K/mm3 (0.0-0.8) 09/16/17 05:47 Eos # 0.0 K/mm3 (0.0-0.4) 09/16/17 05:47 Baso # 0.0 K/mm3 (0.0-0.1) 09/16/17 05:47 Add Manual Diff Complete 09/13/17 00:51 Total Counted 100 09/13/17 00:51 Seg Neutrophils % 83.3 % (40.0-70.0) H 09/16/17 05:47 Seg Neuts % (Manual) 89.0 % (40.0-70.0) H 09/13/17 00:51 Band Neutrophils % 2.0 % 09/13/17 00:51 Lymphocytes % (Manual) 7.0 % (13.4-35.0) L 09/13/17 00:51 Reactive Lymphs % (Man) 0 % 09/13/17 00:51 Monocytes % (Manual) 1.0 % (0.0-7.3) 09/13/17 00:51 Eosinophils % (Manual) 0 % (0.0-4.3) 09/13/17 00:51 Basophils % (Manual) 0 % (0.0-1.8) 09/13/17 00:51 Metamyelocytes % 0 % 09/13/17 00:51 Myelocytes % 1.0 % 09/13/17 00:51 Promyelocytes % 0 % 09/13/17 00:51 Blast Cells % 0 % 09/13/17 00:51 Nucleated RBC % Not Reportable 09/13/17 00:51 Seg Neutrophils # 11.2 K/mm3 (1.8-7.7) H 09/16/17 05:47 Seg Neutrophils # Man 11.8 K/mm3 (1.8-7.7) H 09/13/17 00:51 Band Neutrophils # 0.3 K/mm3 09/13/17 00:51 Lymphocytes # (Manual) 0.9 K/mm3 (1.2-5.4) L 09/13/17 00:51 Abs React Lymphs (Man) 0.0 K/mm3 09/13/17 00:51 Monocytes # (Manual) 0.1 K/mm3 (0.0-0.8) 09/13/17 00:51 Eosinophils # (Manual) 0.0 K/mm3 (0.0-0.4) 09/13/17 00:51 Basophils # (Manual) 0.0 K/mm3 (0.0-0.1) 09/13/17 00:51 Metamyelocytes # 0.0 K/mm3 09/13/17 00:51 Myelocytes # 0.1 K/mm3 09/13/17 00:51 Promyelocytes # 0.0 K/mm3 09/13/17 00:51 Blast Cells # 0.0 K/mm3 09/13/17 00:51 WBC Morphology Not Reportable 09/13/17 00:51 Hypersegmented Neuts Not Reportable 09/13/17 00:51 Hyposegmented Neuts Not Reportable 09/13/17 00:51 Hypogranular Neuts Not Reportable 09/13/17 00:51 Smudge Cells Not Reportable 09/13/17 00:51 Toxic Granulation Not Reportable 09/13/17 00:51 Toxic Vacuolation Not Reportable 09/13/17 00:51 Dohle Bodies Not Reportable 09/13/17 00:51 Pelger-Huet Anomaly Not Reportable 09/13/17 00:51 Tray Rods Not Reportable 09/13/17 00:51 Platelet Estimate Consistent w auto 09/13/17 00:51 Clumped Platelets Not Reportable 09/13/17 00:51 Plt Clumps, EDTA Not Reportable 09/13/17 00:51 Large Platelets Not Reportable 09/13/17 00:51 Giant Platelets Not Reportable 09/13/17 00:51 Platelet Satelliting Not Reportable 09/13/17 00:51 Plt Morphology Comment Not Reportable 09/13/17 00:51 RBC Morphology Not Reportable 09/13/17 00:51 Dimorphic RBCs Not Reportable 09/13/17 00:51 Polychromasia Not Reportable 09/13/17 00:51 Hypochromasia Not Reportable 09/13/17 00:51 Poikilocytosis Not Reportable 09/13/17 00:51 Anisocytosis Not Reportable 09/13/17 00:51 Microcytosis Not Reportable 09/13/17 00:51 Macrocytosis Not Reportable 09/13/17 00:51 Spherocytes Not Reportable 09/13/17 00:51 Pappenheimer Bodies Not Reportable 09/13/17 00:51 Sickle Cells Not Reportable 09/13/17 00:51 Target Cells Not Reportable 09/13/17 00:51 Tear Drop Cells Not Reportable 09/13/17 00:51 Ovalocytes Not Reportable 09/13/17 00:51 Helmet Cells Not Reportable 09/13/17 00:51 Hdz-[place] Bodies Not Reportable 09/13/17 00:51 [place] Rings Not Reportable 09/13/17 00:51 [place] Cells Not Reportable 09/13/17 00:51 Bite Cells Not Reportable 09/13/17 00:51 Crenated Cell Not Reportable 09/13/17 00:51 Elliptocytes Not Reportable 09/13/17 00:51 Acanthocytes (Spur) Not Reportable 09/13/17 00:51 Rouleaux Not Reportable 09/13/17 00:51 Hemoglobin C Crystals Not Reportable 09/13/17 00:51 Schistocytes Not Reportable 09/13/17 00:51 Malaria parasites Not Reportable 09/13/17 00:51 Danie Bodies Not Reportable 09/13/17 00:51 Hem Pathologist Commnt No 09/13/17 00:51 PT 15.7 Sec. (12.2-14.9) H 09/14/17 05:43 INR 1.18 (0.87-1.13) H 09/14/17 05:43 Sodium 136 mmol/L (137-145) L D 09/16/17 13:11 Potassium 2.5 mmol/L (3.6-5.0) L* D 09/16/17 13:11 Chloride 96.5 mmol/L (98-107) L 09/16/17 13:11 Carbon Dioxide 27 mmol/L (22-30) 09/16/17 13:11 Anion Gap 15 mmol/L 09/16/17 13:11 BUN 29 mg/dL (9-20) H 09/16/17 13:11 Creatinine 0.5 mg/dL (0.8-1.5) L 09/16/17 13:11 Estimated GFR > 60 ml/min 09/16/17 13:11 BUN/Creatinine Ratio 58 % 09/16/17 13:11 Glucose 171 mg/dL (75-100) H 09/16/17 13:11 POC Glucose 359 (70-105) H 09/16/17 17:18 Calcium 5.7 mg/dL (8.4-10.2) L* 09/16/17 13:11 Phosphorus 4.20 mg/dL (2.5-4.5) 09/14/17 05:43 Magnesium 1.30 mg/dL (1.7-2.3) L 09/15/17 08:00 Total Bilirubin 0.40 mg/dL (0.1-1.2) 09/16/17 13:11 AST 402 units/L (5-40) H 09/16/17 13:11 ALT 215 units/L (7-56) H 09/16/17 13:11 Alkaline Phosphatase 985 units/L (35-129) H 09/16/17 13:11 Total Creatine Kinase 77 units/L (55-170) 09/13/17 00:51 CK-MB (CK-2) 8.5 ng/mL (0.0-4.0) H 09/13/17 00:51 CK-MB (CK-2) Rel Index 11.0 (0-4) H 09/13/17 00:51 Troponin T 0.035 ng/mL (0.00-0.029) H D 09/13/17 00:51 NT-Pro-B Natriuret Pep 2723 pg/mL (0-900) H 09/13/17 00:51 Total Protein 4.2 g/dL (6.3-8.2) L 09/16/17 13:11 Albumin 1.8 g/dL (3.9-5) L 09/16/17 13:11 Albumin/Globulin Ratio 0.8 % 09/16/17 13:11 Triglycerides 48 mg/dL (2-149) 09/13/17 00:51 Cholesterol 103 mg/dL (50-199) 09/13/17 00:51 LDL Cholesterol Direct 31 mg/dL (50-130) L 09/13/17 00:51 HDL Cholesterol 65 mg/dL (40-59) H 09/13/17 00:51 Cholesterol/HDL Ratio 1.58 % 09/13/17 00:51 Urine Creatinine 9.9 mg/dL (0.1-20.0) 09/13/17 21:57 Urine Microalbumin < 1.2 mg/dL (0.1-34.0) 09/13/17 21:57 Microalb/Creat Ratio 121.2 ug/mg 09/13/17 21:57
[2017-09-16] MEDS: CITRACAL D 315MG-250 UNITS PO SCH (21:37)
[2017-09-17] MEDS: NORCO 5/325 PO PRN (03:12)
[2017-09-17] MEDS: HumaLOG SUB-Q SCH ×4 (08:29→22:54)
[2017-09-17] MEDS: CALCIUM GLUCONATE PO SCH ×2 (10:39→22:00)
[2017-09-17] MEDS: HEPARIN SUB-Q SCH ×2 (10:46→22:55)
[2017-09-17] MEDS: ASPIRIN PO SCH (10:48)
[2017-09-17] MEDS: K-DUR PO SCH ×2 (10:48→22:55)
[2017-09-17] MEDS: CITRACAL D 315MG-250 UNITS PO SCH ×2 (10:48→22:55)
[2017-09-17] MEDS: LOPRESSOR PO SCH ×2 (10:49→22:56)
[2017-09-17] MEDS: ALDACTONE PO SCH (10:49)
[2017-09-17] MEDS: KEPPRA 500 MG/NS 0.82% 100 ML 500 MG/100 ML BAG IV SCH (10:50)
[2017-09-17] MEDS: ZESTRIL PO SCH (10:50)
[2017-09-17] MEDS: SLOW-MAG PO SCH (13:34)
[2017-09-17 16:42] LABS: BUN/Creatinine Ratio 48; Blood Urea Nitrogen 29 mg/dL (9-20); Calcium 6.6 mg/dL (8.4-10.2); Hemolysis Index 2
[2017-09-17] MEDS: KEPPRA PO SCH (22:55)
--- NOTE | 2017-09-18 04:07 | Event Note ---
Date: 09/18/17 patient found on floor with laceration to head. obtain ct head
--- NOTE | 2017-09-18 04:45 | Cat Scan Report ---
FINAL REPORT EXAM: CT HEAD/BRAIN WO CON HISTORY: FALL. TECHNIQUE: Unenhanced axial CT images of the brain were obtained. No prior studies are available for comparison. FINDINGS: There is mild generalized volume loss, appropriate for patient's age. The bee-white differentiation is maintained. There is no extra-axial fluid collection, mass, mass effect, midline shift, hydrocephalus, or acute intracranial hemorrhage. The visualized paranasal sinuses and mastoid air cells are clear. There is a small laceration and subcutaneous edema in the upper right parietal scalp. There is a 1.0 cm bony osteoma at the left posterior-lateral aspect of the right sphenoid sinus. There is no skull fracture or other osseous abnormality. The visualized orbits and globes are grossly unremarkable. IMPRESSION: 1. No fracture or acute intracranial abnormality. 2. Upper right parietal scalp laceration/subcutaneous edema.
[2017-09-18] MEDS ORDERED: NACL 0.9% 500 ML IV ONE ×2 (05:29→23:00)
[2017-09-18 06:09] LABS: BUN/Creatinine Ratio 63; Blood Urea Nitrogen 44 mg/dL (9-20); Calcium 6.5 mg/dL (8.4-10.2); Hemolysis Index 9
[2017-09-18] MEDS: HumaLOG SUB-Q SCH ×3 (08:00→17:00)
[2017-09-18] MEDS: HEPARIN SUB-Q SCH ×2 (10:00→23:56)
[2017-09-18] MEDS: SLOW-MAG PO SCH (10:00)
[2017-09-18] MEDS: KEPPRA PO SCH (10:00)
[2017-09-18] MEDS: CALCIUM GLUCONATE PO SCH (10:00)
[2017-09-18] MEDS: CITRACAL D 315MG-250 UNITS PO SCH (10:00)
[2017-09-18] MEDS ORDERED: K-DUR PO SCH (10:00)
[2017-09-18] MEDS: ALDACTONE PO SCH (10:00)
[2017-09-18] MEDS: ZESTRIL PO SCH (10:00)
[2017-09-18] MEDS: ASPIRIN PO SCH (10:00)
[2017-09-18] MEDS: K-PHOS NEUTRAL PO SCH ×3 (10:00→18:00)
[2017-09-18] MEDS: LOPRESSOR PO SCH (10:00)
--- NOTE | 2017-09-18 10:56 | Progress Note ---
Assessment and Plan Assessment and plan: 52m who pw seizure. he was seen in ER, then signed out ama, after which he decided to check back in, While in the waiting room the patient had a witnessed generalized tonic-clonic seizure. -Seizure most likely secondary hypoglycemia and presence of amphetamine abuse Seizure precautions, for EEG today He improved after receiving D50 - Hypoglycemia Assessment and hypoglycemic events in the absence of any adequate caloric intake Polysubsance abuse couselling on cessation done Hypomagnesemia, hypophosphatemia Replete, Vitamin D deficiency -rx with vitamin D/Calcium supplement Hypocalcemia Has been replete however corrected calcium when corrected for albumin is still 7.2, we'll give oral and IV calcium. -Hypokalemia We'll supplement and trend Check magnesium level -Elevated cardiac enzymes Doubt if this is cardiac in origin Will obtain serial cardiac enzymes Commence aspirin, nitroglycerin, No chest pain reported -Leukocytosis Likely marginalization from seizure activity We will trend -Amphetamine use disorder He has been counseled on cessation Severe malnutrition Dietitian consult Case discussed with case management, patient is homeless and will need usp placement DVT Prophylaxis with Lovenox History Interval history: Review of systems Constitutional: He is complaining of generalized weakness CVS: No chest pain, no orthopnea, no dyspnea on exertion, has mild pedal edema GI: No abdominal pain, no diarrhea, no vomiting, no constipation Respiratory: No shortness of breath, no wheezing, no coughing Neuro; no seizures today Hospitalist Physical - Physical exam Narrative exam: General.: Appears chronically ill, emaciated HEENT: Moist mucous membranes, extraocular muscles intact, no lymphadenopathy Neck: supple Cardiac: S1-S2 heard Lungs: clear to auscultation bilaterally Abdomen: soft , nontender, nondistended, bowel sounds positive Extremities: 1+ pedal edema Skin: Patient has small wound on his shins Neurologic: no gross focal deficits Psych: appropriate behavior, appropriate mood, corporative, judgment intact - Constitutional Vitals: Temp Pulse Resp BP Pulse Ox 98.3 F 96 H 18 91/62 96 09/18/17 07:50 09/18/17 07:00 09/18/17 07:50 09/18/17 07:50 09/18/17 07:00 General appearance: Present: no acute distress, well-nourished Results - Labs CBC & Chem 7: 09/16/17 05:47 09/18/17 05:22 Labs: Laboratory Last Values WBC 13.4 K/mm3 (4.5-11.0) H 09/16/17 05:47 RBC 3.86 M/mm3 (3.65-5.03) 09/16/17 05:47 Hgb 11.9 gm/dl (11.8-15.2) 09/16/17 05:47 Hct 35.7 % (35.5-45.6) 09/16/17 05:47 MCV 93 fl (84-94) 09/16/17 05:47 MCH 31 pg (28-32) 09/16/17 05:47 MCHC 33 % (32-34) 09/16/17 05:47 RDW 16.0 % (13.2-15.2) H 09/16/17 05:47 Plt Count 258 K/mm3 (140-440) 09/16/17 05:47 Lymph % (Auto) 12.8 % (13.4-35.0) L 09/16/17 05:47 [place] % (Auto) 3.7 % (0.0-7.3) 09/16/17 05:47 Eos % (Auto) 0.1 % (0.0-4.3) 09/16/17 05:47 Baso % (Auto) 0.1 % (0.0-1.8) 09/16/17 05:47 Lymph # 1.7 K/mm3 (1.2-5.4) 09/16/17 05:47 [place] # 0.5 K/mm3 (0.0-0.8) 09/16/17 05:47 Eos # 0.0 K/mm3 (0.0-0.4) 09/16/17 05:47 Baso # 0.0 K/mm3 (0.0-0.1) 09/16/17 05:47 Add Manual Diff Complete 09/13/17 00:51 Total Counted 100 09/13/17 00:51 Seg Neutrophils % 83.3 % (40.0-70.0) H 09/16/17 05:47 Seg Neuts % (Manual) 89.0 % (40.0-70.0) H 09/13/17 00:51 Band Neutrophils % 2.0 % 09/13/17 00:51 Lymphocytes % (Manual) 7.0 % (13.4-35.0) L 09/13/17 00:51 Reactive Lymphs % (Man) 0 % 09/13/17 00:51 Monocytes % (Manual) 1.0 % (0.0-7.3) 09/13/17 00:51 Eosinophils % (Manual) 0 % (0.0-4.3) 09/13/17 00:51 Basophils % (Manual) 0 % (0.0-1.8) 09/13/17 00:51 Metamyelocytes % 0 % 09/13/17 00:51 Myelocytes % 1.0 % 09/13/17 00:51 Promyelocytes % 0 % 09/13/17 00:51 Blast Cells % 0 % 09/13/17 00:51 Nucleated RBC % Not Reportable 09/13/17 00:51 Seg Neutrophils # 11.2 K/mm3 (1.8-7.7) H 09/16/17 05:47 Seg Neutrophils # Man 11.8 K/mm3 (1.8-7.7) H 09/13/17 00:51 Band Neutrophils # 0.3 K/mm3 09/13/17 00:51 Lymphocytes # (Manual) 0.9 K/mm3 (1.2-5.4) L 09/13/17 00:51 Abs React Lymphs (Man) 0.0 K/mm3 09/13/17 00:51 Monocytes # (Manual) 0.1 K/mm3 (0.0-0.8) 09/13/17 00:51 Eosinophils # (Manual) 0.0 K/mm3 (0.0-0.4) 09/13/17 00:51 Basophils # (Manual) 0.0 K/mm3 (0.0-0.1) 09/13/17 00:51 Metamyelocytes # 0.0 K/mm3 09/13/17 00:51 Myelocytes # 0.1 K/mm3 09/13/17 00:51 Promyelocytes # 0.0 K/mm3 09/13/17 00:51 Blast Cells # 0.0 K/mm3 09/13/17 00:51 WBC Morphology Not Reportable 09/13/17 00:51 Hypersegmented Neuts Not Reportable 09/13/17 00:51 Hyposegmented Neuts Not Reportable 09/13/17 00:51 Hypogranular Neuts Not Reportable 09/13/17 00:51 Smudge Cells Not Reportable 09/13/17 00:51 Toxic Granulation Not Reportable 09/13/17 00:51 Toxic Vacuolation Not Reportable 09/13/17 00:51 Dohle Bodies Not Reportable 09/13/17 00:51 Pelger-Huet Anomaly Not Reportable 09/13/17 00:51 Tray Rods Not Reportable 09/13/17 00:51 Platelet Estimate Consistent w auto 09/13/17 00:51 Clumped Platelets Not Reportable 09/13/17 00:51 Plt Clumps, EDTA Not Reportable 09/13/17 00:51 Large Platelets Not Reportable 09/13/17 00:51 Giant Platelets Not Reportable 09/13/17 00:51 Platelet Satelliting Not Reportable 09/13/17 00:51 Plt Morphology Comment Not Reportable 09/13/17 00:51 RBC Morphology Not Reportable 09/13/17 00:51 Dimorphic RBCs Not Reportable 09/13/17 00:51 Polychromasia Not Reportable 09/13/17 00:51 Hypochromasia Not Reportable 09/13/17 00:51 Poikilocytosis Not Reportable 09/13/17 00:51 Anisocytosis Not Reportable 09/13/17 00:51 Microcytosis Not Reportable 09/13/17 00:51 Macrocytosis Not Reportable 09/13/17 00:51 Spherocytes Not Reportable 09/13/17 00:51 Pappenheimer Bodies Not Reportable 09/13/17 00:51 Sickle Cells Not Reportable 09/13/17 00:51 Target Cells Not Reportable 09/13/17 00:51 Tear Drop Cells Not Reportable 09/13/17 00:51 Ovalocytes Not Reportable 09/13/17 00:51 Helmet Cells Not Reportable 09/13/17 00:51 Hdz-[place] Bodies Not Reportable 09/13/17 00:51 [place] Rings Not Reportable 09/13/17 00:51 [place] Cells Not Reportable 09/13/17 00:51 Bite Cells Not Reportable 09/13/17 00:51 Crenated Cell Not Reportable 09/13/17 00:51 Elliptocytes Not Reportable 09/13/17 00:51 Acanthocytes (Spur) Not Reportable 09/13/17 00:51 Rouleaux Not Reportable 09/13/17 00:51 Hemoglobin C Crystals Not Reportable 09/13/17 00:51 Schistocytes Not Reportable 09/13/17 00:51 Malaria parasites Not Reportable 09/13/17 00:51 Danie Bodies Not Reportable 09/13/17 00:51 Hem Pathologist Commnt No 09/13/17 00:51 PT 15.7 Sec. (12.2-14.9) H 09/14/17 05:43 INR 1.18 (0.87-1.13) H 09/14/17 05:43 Sodium 143 mmol/L (137-145) D 09/18/17 05:22 Potassium 5.2 mmol/L (3.6-5.0) H D 09/18/17 05:22 Chloride 104.0 mmol/L (98-107) 09/18/17 05:22 Carbon Dioxide 23 mmol/L (22-30) 09/18/17 05:22 Anion Gap 21 mmol/L 09/18/17 05:22 BUN 44 mg/dL (9-20) H 09/18/17 05:22 Creatinine 0.7 mg/dL (0.8-1.5) L 09/18/17 05:22 Estimated GFR > 60 ml/min 09/18/17 05:22 BUN/Creatinine Ratio 63 % 09/18/17 05:22 Glucose 71 mg/dL (75-100) L 09/18/17 05:22 POC Glucose 160 (70-105) H 09/17/17 21:28 Calcium 6.5 mg/dL (8.4-10.2) L 09/18/17 05:22 Phosphorus 1.80 mg/dL (2.5-4.5) L 09/18/17 05:22 Magnesium 1.80 mg/dL (1.7-2.3) 09/18/17 05:22 Total Bilirubin 0.40 mg/dL (0.1-1.2) 09/16/17 13:11 AST 402 units/L (5-40) H 09/16/17 13:11 ALT 215 units/L (7-56) H 09/16/17 13:11 Alkaline Phosphatase 985 units/L (35-129) H 09/16/17 13:11 Total Creatine Kinase 77 units/L (55-170) 09/13/17 00:51 CK-MB (CK-2) 8.5 ng/mL (0.0-4.0) H 09/13/17 00:51 CK-MB (CK-2) Rel Index 11.0 (0-4) H 09/13/17 00:51 Troponin T 0.035 ng/mL (0.00-0.029) H D 09/13/17 00:51 NT-Pro-B Natriuret Pep 2723 pg/mL (0-900) H 09/13/17 00:51 Total Protein 4.2 g/dL (6.3-8.2) L 09/16/17 13:11 Albumin 1.8 g/dL (3.9-5) L 09/16/17 13:11 Albumin/Globulin Ratio 0.8 % 09/16/17 13:11 Triglycerides 48 mg/dL (2-149) 09/13/17 00:51 Cholesterol 103 mg/dL (50-199) 09/13/17 00:51 LDL Cholesterol Direct 31 mg/dL (50-130) L 09/13/17 00:51 HDL Cholesterol 65 mg/dL (40-59) H 09/13/17 00:51 Cholesterol/HDL Ratio 1.58 % 09/13/17 00:51 PTH Intact 218.5 pg/mL (15-65) H 09/17/17 16:06 Urine Creatinine 9.9 mg/dL (0.1-20.0) 09/13/17 21:57 Urine Microalbumin < 1.2 mg/dL (0.1-34.0) 09/13/17 21:57 Microalb/Creat Ratio 121.2 ug/mg 09/13/17 21:57
--- NOTE | 2017-09-18 10:59 | Progress Note ---
Assessment and Plan Assessment and plan: 52m who pw seizure. he was seen in ER, then signed out ama, after which he decided to check back in, While in the waiting room the patient had a witnessed generalized tonic-clonic seizure. GI bleed -concern for variceal bleed vs ulcer start PPI drip, consult GI, stat CBC Sp fall with head trauma and scalp laceration -CTH show no intracranial pathology -surgery consult to suture the laceration -Seizure most likely secondary hypoglycemia and presence of amphetamine abuse Seizure precautions, for EEG today He improved after receiving D50 - Hypoglycemia Assessment and hypoglycemic events in the absence of any adequate caloric intake Polysubsance abuse counselling on cessation done Hypomagnesemia, hypophosphatemia Replete, Vitamin D deficiency -rx with vitamin D/Calcium supplement Hypocalcemia Has been replete however corrected calcium when corrected for albumin is still 7.2, we'll give oral and IV calcium. -Hypokalemia was repleted -Elevated cardiac enzymes Doubt if this is cardiac in origin Will obtain serial cardiac enzymes Commence aspirin, nitroglycerin, No chest pain reported -Leukocytosis Likely marginalization from seizure activity We will trend -Amphetamine use disorder He has been counseled on cessation Severe malnutrition Dietitian consult Case discussed with case management, patient is homeless and will need correction placement DVT Prophylaxis with Lovenox History Interval history: The patient had a fall last night and sustained a laceration to his scalp. Review of systems Constitutional: He is complaining of generalized weakness CVS: No chest pain, no orthopnea, no dyspnea on exertion, has mild pedal edema GI: He is complaining of bloody stools, is having bloody diarrhea Respiratory: No shortness of breath, no wheezing, no coughing Neuro; no seizures today Hospitalist Physical - Physical exam Narrative exam: General.: Appears chronically ill, emaciated HEENT: Moist mucous membranes, extraocular muscles intact, no lymphadenopathy Neck: supple Cardiac: S1-S2 heard Lungs: clear to auscultation bilaterally Abdomen: soft , nontender, nondistended, bowel sounds positive Extremities: 1+ pedal edema Skin: Patient has small wound on his shins Neurologic: no gross focal deficits Psych: appropriate behavior, appropriate mood, corporative, judgment intact - Constitutional Vitals: Temp Pulse Resp BP Pulse Ox 98.3 F 96 H 18 91/62 96 09/18/17 07:50 09/18/17 07:00 04/09/18 07:50 09/18/17 07:50 09/18/17 07:00 General appearance: Present: no acute distress, well-nourished Results - Labs CBC & Chem 7: 09/19/17 08:59 09/21/17 07:54 Labs: Laboratory Last Values WBC 13.4 K/mm3 (4.5-11.0) H 09/16/17 05:47 RBC 3.86 M/mm3 (3.65-5.03) 09/16/17 05:47 Hgb 11.9 gm/dl (11.8-15.2) 09/16/17 05:47 Hct 35.7 % (35.5-45.6) 09/16/17 05:47 MCV 93 fl (84-94) 09/16/17 05:47 MCH 31 pg (28-32) 09/16/17 05:47 MCHC 33 % (32-34) 09/16/17 05:47 RDW 16.0 % (13.2-15.2) H 09/16/17 05:47 Plt Count 258 K/mm3 (140-440) 09/16/17 05:47 Lymph % (Auto) 12.8 % (13.4-35.0) L 09/16/17 05:47 Isabela % (Auto) 3.7 % (0.0-7.3) 09/16/17 05:47 Eos % (Auto) 0.1 % (0.0-4.3) 09/16/17 05:47 Baso % (Auto) 0.1 % (0.0-1.8) 09/16/17 05:47 Lymph # 1.7 K/mm3 (1.2-5.4) 09/16/17 05:47 Isabela # 0.5 K/mm3 (0.0-0.8) 09/16/17 05:47 Eos # 0.0 K/mm3 (0.0-0.4) 09/16/17 05:47 Baso # 0.0 K/mm3 (0.0-0.1) 09/16/17 05:47 Add Manual Diff Complete 09/13/17 00:51 Total Counted 100 09/13/17 00:51 Seg Neutrophils % 83.3 % (40.0-70.0) H 09/16/17 05:47 Seg Neuts % (Manual) 89.0 % (40.0-70.0) H 09/13/17 00:51 Band Neutrophils % 2.0 % 09/13/17 00:51 Lymphocytes % (Manual) 7.0 % (13.4-35.0) L 09/13/17 00:51 Reactive Lymphs % (Man) 0 % 09/13/17 00:51 Monocytes % (Manual) 1.0 % (0.0-7.3) 09/13/17 00:51 Eosinophils % (Manual) 0 % (0.0-4.3) 09/13/17 00:51 Basophils % (Manual) 0 % (0.0-1.8) 09/13/17 00:51 Metamyelocytes % 0 % 09/13/17 00:51 Myelocytes % 1.0 % 09/13/17 00:51 Promyelocytes % 0 % 09/13/17 00:51 Blast Cells % 0 % 09/13/17 00:51 Nucleated RBC % Not Reportable 09/13/17 00:51 Seg Neutrophils # 11.2 K/mm3 (1.8-7.7) H 09/16/17 05:47 Seg Neutrophils # Man 11.8 K/mm3 (1.8-7.7) H 09/13/17 00:51 Band Neutrophils # 0.3 K/mm3 09/13/17 00:51 Lymphocytes # (Manual) 0.9 K/mm3 (1.2-5.4) L 09/13/17 00:51 Abs React Lymphs (Man) 0.0 K/mm3 09/13/17 00:51 Monocytes # (Manual) 0.1 K/mm3 (0.0-0.8) 09/13/17 00:51 Eosinophils # (Manual) 0.0 K/mm3 (0.0-0.4) 09/13/17 00:51 Basophils # (Manual) 0.0 K/mm3 (0.0-0.1) 09/13/17 00:51 Metamyelocytes # 0.0 K/mm3 09/13/17 00:51 Myelocytes # 0.1 K/mm3 09/13/17 00:51 Promyelocytes # 0.0 K/mm3 09/13/17 00:51 Blast Cells # 0.0 K/mm3 09/13/17 00:51 WBC Morphology Not Reportable 09/13/17 00:51 Hypersegmented Neuts Not Reportable 09/13/17 00:51 Hyposegmented Neuts Not Reportable 09/13/17 00:51 Hypogranular Neuts Not Reportable 09/13/17 00:51 Smudge Cells Not Reportable 09/13/17 00:51 Toxic Granulation Not Reportable 09/13/17 00:51 Toxic Vacuolation Not Reportable 09/13/17 00:51 Dohle Bodies Not Reportable 09/13/17 00:51 Pelger-Huet Anomaly Not Reportable 09/13/17 00:51 Tray Rods Not Reportable 09/13/17 00:51 Platelet Estimate Consistent w auto 09/13/17 00:51 Clumped Platelets Not Reportable 09/13/17 00:51 Plt Clumps, EDTA Not Reportable 09/13/17 00:51 Large Platelets Not Reportable 09/13/17 00:51 Giant Platelets Not Reportable 09/13/17 00:51 Platelet Satelliting Not Reportable 09/13/17 00:51 Plt Morphology Comment Not Reportable 09/13/17 00:51 RBC Morphology Not Reportable 09/13/17 00:51 Dimorphic RBCs Not Reportable 09/13/17 00:51 Polychromasia Not Reportable 09/13/17 00:51 Hypochromasia Not Reportable 09/13/17 00:51 Poikilocytosis Not Reportable 09/13/17 00:51 Anisocytosis Not Reportable 09/13/17 00:51 Microcytosis Not Reportable 09/13/17 00:51 Macrocytosis Not Reportable 09/13/17 00:51 Spherocytes Not Reportable 09/13/17 00:51 Pappenheimer Bodies Not Reportable 09/13/17 00:51 Sickle Cells Not Reportable 09/13/17 00:51 Target Cells Not Reportable 09/13/17 00:51 Tear Drop Cells Not Reportable 09/13/17 00:51 Ovalocytes Not Reportable 09/13/17 00:51 Helmet Cells Not Reportable 09/13/17 00:51 Hdz-Estelle Bodies Not Reportable 09/13/17 00:51 Hopkins Rings Not Reportable 09/13/17 00:51 Phoenix Cells Not Reportable 09/13/17 00:51 Bite Cells Not Reportable 09/13/17 00:51 Crenated Cell Not Reportable 09/13/17 00:51 Elliptocytes Not Reportable 09/13/17 00:51 Acanthocytes (Spur) Not Reportable 09/13/17 00:51 Rouleaux Not Reportable 09/13/17 00:51 Hemoglobin C Crystals Not Reportable 09/13/17 00:51 Schistocytes Not Reportable 09/13/17 00:51 Malaria parasites Not Reportable 09/13/17 00:51 Danie Bodies Not Reportable 09/13/17 00:51 Hem Pathologist Commnt No 09/13/17 00:51 PT 15.7 Sec. (12.2-14.9) H 09/14/17 05:43 INR 1.18 (0.87-1.13) H 09/14/17 05:43 Sodium 143 mmol/L (137-145) D 09/18/17 05:22 Potassium 5.2 mmol/L (3.6-5.0) H D 09/18/17 05:22 Chloride 104.0 mmol/L (98-107) 09/18/17 05:22 Carbon Dioxide 23 mmol/L (22-30) 09/18/17 05:22 Anion Gap 21 mmol/L 09/18/17 05:22 BUN 44 mg/dL (9-20) H 09/18/17 05:22 Creatinine 0.7 mg/dL (0.8-1.5) L 09/18/17 05:22 Estimated GFR > 60 ml/min 09/18/17 05:22 BUN/Creatinine Ratio 63 % 09/18/17 05:22 Glucose 71 mg/dL (75-100) L 09/18/17 05:22 POC Glucose 160 (70-105) H 09/17/17 21:28 Calcium 6.5 mg/dL (8.4-10.2) L 09/18/17 05:22 Phosphorus 1.80 mg/dL (2.5-4.5) L 09/18/17 05:22 Magnesium 1.80 mg/dL (1.7-2.3) 09/18/17 05:22 Total Bilirubin 0.40 mg/dL (0.1-1.2) 09/16/17 13:11 AST 402 units/L (5-40) H 09/16/17 13:11 ALT 215 units/L (7-56) H 09/16/17 13:11 Alkaline Phosphatase 985 units/L (35-129) H 09/16/17 13:11 Total Creatine Kinase 77 units/L (55-170) 09/13/17 00:51 CK-MB (CK-2) 8.5 ng/mL (0.0-4.0) H 09/13/17 00:51 CK-MB (CK-2) Rel Index 11.0 (0-4) H 09/13/17 00:51 Troponin T 0.035 ng/mL (0.00-0.029) H D 09/13/17 00:51 NT-Pro-B Natriuret Pep 2723 pg/mL (0-900) H 09/13/17 00:51 Total Protein 4.2 g/dL (6.3-8.2) L 09/16/17 13:11 Albumin 1.8 g/dL (3.9-5) L 09/16/17 13:11 Albumin/Globulin Ratio 0.8 % 09/16/17 13:11 Triglycerides 48 mg/dL (2-149) 09/13/17 00:51 Cholesterol 103 mg/dL (50-199) 09/13/17 00:51 LDL Cholesterol Direct 31 mg/dL (50-130) L 09/13/17 00:51 HDL Cholesterol 65 mg/dL (40-59) H 09/13/17 00:51 Cholesterol/HDL Ratio 1.58 % 09/13/17 00:51 PTH Intact 218.5 pg/mL (15-65) H 09/17/17 16:06 Urine Creatinine 9.9 mg/dL (0.1-20.0) 09/13/17 21:57 Urine Microalbumin < 1.2 mg/dL (0.1-34.0) 09/13/17 21:57 Microalb/Creat Ratio 121.2 ug/mg 09/13/17 21:57
[2017-09-18] MEDS ORDERED: NACL 0.9% 1000 ML 1,000 ML IV SCH (11:00)
[2017-09-18] MEDS: D50W (25GM) Syringe IV PRN (11:25)
--- NOTE | 2017-09-18 11:26 | Consultation ---
History of Present Illness Consult date: 09/18/17 Reason for consult: other (scalp laceration) Requesting physician: ZINA NGUYEN Chief complaint: headache - History of present illness History of present illness: 52-year-old male admitted after having a tonic-clonic seizures in the emergency department. Early this morning, patient was found out of bed on the floor. He was noted to have a new scalp laceration on the right. Head CT was negative. General surgery was consult for laceration repair. Patient complains a mild headache. He confirms this is a new laceration. Past History Past Medical History: diabetes, heart failure, hypertension, other ( transaminasemia, hypokalemia, hypoglycemia) Past Surgical History: hernia repair Social history: smoking, alcohol abuse Family history: other (couldn't be obtained patient is post ictal) Medications and Allergies Allergies Allergy/AdvReac Type Severity Reaction Status Date / Time No Known Allergies Allergy Verified 08/17/17 13:14 Home Medications Medication Instructions Recorded Confirmed Last Taken Type Insulin NPH/Regular [NovoLIN 70/30] 25 unit SUB-Q BIDDIAB #2 vial 08/22/1709/13 Unknown Rx Lisinopril [Zestril TAB] 2.5 mg PO QDAY #30 tablet 08/22/17 09/13/17 Unknown Rx Metoprolol Xl [Metoprolol 25 mg PO QDAY #30 tablet 08/22/17 09/13/17 Unknown Rx SUCCINATE ER TAB] Pantoprazole [Protonix TAB] 40 mg PO QDAY #15 tablet 08/22/17 09/13/17 Unknown Rx Spironolactone [Aldactone] 50 mg PO QDAY #30 tablet 08/22/17 09/13/17 Unknown Rx oxyCODONE /ACETAMINOPHEN [Percocet 1 tab PO Q6H PRN #10 tablet 08/22/17 Unknown Rx 5/325 mg] Active Meds: Active Medications Acetaminophen/Hydrocodone Bitart ([place] 5/325) 1 each PO Q6H PRN PRN Reason: Pain, Moderate (4-6) Last Admin: 09/17/17 03:12 Dose: 1 each Aspirin (Aspirin) 325 mg PO QDAY MEENAKSHI Last Admin: 09/17/17 10:48 Dose: 325 mg Calcium Citrate (Citracal D 315mg-250 Units) 2 each PO BID MEENAKSHI Last Admin: 09/17/17 22:55 Dose: 2 each Calcium Gluconate (Calcium Gluconate) 500 mg PO BID [facility] Last Admin: 09/17/17 22:00 Dose: Not Given Dextrose (D50w (25gm) Syringe) 50 ml IV PRN PRN PRN Reason: Hypoglycemia Last Admin: 09/15/17 11:41 Dose: 50 ml Heparin Sodium (Porcine) (Heparin) 5,000 unit SUB-Q Q12HR [facility] Last Admin: 09/17/17 22:55 Dose: 5,000 unit Sodium Chloride (Nacl 0.9% 1000 Ml) 1,000 mls @ 42 mls/hr IV DIRECT [facility] Pantoprazole Sodium 80 mg/ (Sodium Chloride) 100 mls @ 10 mls/hr IV Q10H [facility] Sodium Phosphate 45 mmol/ (Sodium Chloride) 515 mls @ 84 mls/hr IV ONCE ONE Stop: 09/18/17 18:07 Insulin Human Lispro (Humalog) 0 unit SUB-Q ACHS [facility]; Protocol Last Admin: 09/17/17 22:54 Dose: 1 unit Levetiracetam (Keppra) 500 mg PO BID [facility] Last Admin: 09/17/17 22:55 Dose: 500 mg Lisinopril (Zestril) 2.5 mg PO QDAY [facility] Last Admin: 09/17/17 10:50 Dose: 2.5 mg Lorazepam (Ativan) 1 mg IV Q4H PRN PRN Reason: Seizures Last Admin: 09/15/17 03:10 Dose: 1 mg Magnesium Chloride (Slow-Mag) 64 mg PO QDAY [facility] Last Admin: 09/17/17 13:34 Dose: 64 mg Metoprolol Tartrate (Lopressor) 12.5 mg PO BID [facility] Last Admin: 09/17/17 22:56 Dose: Not Given Sodium Phosphate (K-Phos Neutral) 250 mg PO QID [facility] Spironolactone (Aldactone) 50 mg PO QDAY [facility] Last Admin: 09/17/17 10:49 Dose: 50 mg Review of Systems - Constitutional no fever, no chills - Muskuloskeletal no neck pain - Integumentary wounds (scalp laceration) - Neurological head injury (status post fall) - Hematologic/Lymphatic no easy bruising, no easy bleeding Exam Vital Signs Pulse Resp BP Pulse Ox 62 14 114/76 93 09/13/17 00:46 09/13/17 00:46 09/13/17 00:46 09/13/17 00:46 - General physical appearance Positive: no distress, no pain, other (easily awakened from sleep. Patient not interested in interacting during interview.) - Respiratory Positive: normal expansion, normal respiratory effort - Integumentary other (5 cm U-shaped laceration noted in the right parietal occipital region of the scalp. There is no active bleeding. Wound appears to be in an avulsion type wound. There is some hair that is dried into the wound that was easily pulled out. Otherwise, the wound is fairly clean. No erythema seen.) Results - Labs 09/16/17 05:47 09/18/17 05:22 Abnormal lab results 09/17/17 09/17/17 09/17/17 Range/Units 12:10 16:06 16:06 Sodium 136 L (137-145) mmol/L Potassium (3.6-5.0) mmol/L BUN 29 H (9-20) mg/dL Creatinine 0.6 L (0.8-1.5) mg/dL Glucose 139 H (75-100) mg/dL POC Glucose 268 H (70-105) Calcium 6.6 L D (8.4-10.2) mg/dL Phosphorus 1.60 L (2.5-4.5) mg/dL PTH Intact 218.5 H (15-65) pg/mL 09/17/17 09/17/17 09/18/17 Range/Units 17:15 21:28 05:22 Sodium (137-145) mmol/L Potassium 5.2 H D (3.6-5.0) mmol/L BUN 44 H (9-20) mg/dL Creatinine 0.7 L (0.8-1.5) mg/dL Glucose 71 L (75-100) mg/dL POC Glucose 176 H 160 H (70-105) Calcium 6.5 L (8.4-10.2) mg/dL Phosphorus 1.80 L (2.5-4.5) mg/dL PTH Intact (15-65) pg/mL Diabetes panel 09/17/17 09/18/17 Range/Units 16:06 05:22 Sodium 136 L 143 D (137-145) mmol/L Potassium 4.3 D 5.2 H D (3.6-5.0) mmol/L Chloride 100.0 104.0 (98-107) mmol/L Carbon Dioxide 25 23 (22-30) mmol/L BUN 29 H 44 H (9-20) mg/dL Creatinine 0.6 L 0.7 L (0.8-1.5) mg/dL Glucose 139 H 71 L (75-100) mg/dL Calcium 6.6 L D 6.5 L (8.4-10.2) mg/dL Calcium panel 09/17/17 09/18/17 Range/Units 16:06 05:22 Calcium 6.6 L D 6.5 L (8.4-10.2) mg/dL Phosphorus 1.60 L 1.80 L (2.5-4.5) mg/dL Pituitary panel 09/17/17 09/18/17 Range/Units 16:06 05:22 Sodium 136 L 143 D (137-145) mmol/L Potassium 4.3 D 5.2 H D (3.6-5.0) mmol/L Chloride 100.0 104.0 (98-107) mmol/L Carbon Dioxide 25 23 (22-30) mmol/L BUN 29 H 44 H (9-20) mg/dL Creatinine 0.6 L 0.7 L (0.8-1.5) mg/dL Glucose 139 H 71 L (75-100) mg/dL Calcium 6.6 L D 6.5 L (8.4-10.2) mg/dL Adrenal panel 09/17/17 09/18/17 Range/Units 16:06 05:22 Sodium 136 L 143 D (137-145) mmol/L Potassium 4.3 D 5.2 H D (3.6-5.0) mmol/L Chloride 100.0 104.0 (98-107) mmol/L Carbon Dioxide 25 23 (22-30) mmol/L BUN 29 H 44 H (9-20) mg/dL Creatinine 0.6 L 0.7 L (0.8-1.5) mg/dL Glucose 139 H 71 L (75-100) mg/dL Calcium 6.6 L D 6.5 L (8.4-10.2) mg/dL - Imaging Additional studies: CT head - negative. Reviewed report and images Assessment and Plan - Patient Problems (1) Scalp avulsion Onset Date: ~09/18/17 Current Visit: Yes Status: Acute Qualifiers: Encounter type: initial encounter Qualified Code(s): S08.0XXA - Avulsion of scalp, initial encounter Plan to address problem: Patient stable. All the tissue is viable. Edges are clean. We'll order supplies to bedside for washout and repair. Time=30min
[2017-09-18] MEDS ORDERED: SODIUM PHOSPHATE 45 MMOL in NACL 0.9% 500 ML 500 ML IV ONE (12:00)
[2017-09-18] MEDS ORDERED: PROTONIX 80 MG in NACL 0.9% 100 ML IV SCH (12:00)
[2017-09-18] MEDS ORDERED: XYLOCAINE TOPICAL 5% TP ONE (12:44)
[2017-09-18] MEDS ORDERED: POLYSPORIN TP ONE (13:00)
[2017-09-18] MEDS ORDERED: D10W 1,000 ML IV SCH (13:00)
[2017-09-18 13:58] LABS: Hematocrit 20.9 % (35.5-45.6); Hemoglobin 6.6 gm/dl (11.8-15.2); Mean Corpuscular HGB Conc 32 % (32-34); Mean Corpuscular Hemoglobin 30 pg (28-32); Mean Corpuscular Volume 96 fl (84-94); Platelet Count 263 K/mm3 (140-440); Red Blood Count 2.19 M/mm3 (3.65-5.03); Red Cell Distribution Width 16.6 % (13.2-15.2)
[2017-09-18] MEDS ORDERED: NACL 0.9% 500 ML 500 ML IV NR (15:34)
--- NOTE | 2017-09-18 18:34 | Procedure Note ---
Date of procedure: 09/18/17 Pre-op diagnosis: scalp laceration Post-op diagnosis: same Procedure: Laceration repair with stapler Findings: skin avulsion. No bleeding. Wound clean. tissue all viable Anesthesia: local Surgeon: MERRY POLANCO Estimated blood loss: none Pathology: none Condition: stable Disposition: floor
[2017-09-18] MEDS ORDERED: DIPRIVAN 10 MG/ML IV ONE (18:46)
[2017-09-18] MEDS ORDERED: WATER FOR IRRIG STERILE IR ONE ×2 (18:49→20:10)
[2017-09-18] MEDS ORDERED: NACL 0.9% 1000 ML 1,000 ML ONE (18:49)
--- NOTE | 2017-09-18 19:06 | Anesthesia Consultation ---
Anesthesia Consult and Med Hx Date of service: 09/18/17 - Airway Anesthetic Teeth Evaluation: Poor ROM Head & Neck: Adequate Mental/Hyoid Distance: Adequate Mallampati Class: Class I Intubation Access Assessment: Good - Pulmonary Exam CTA: Yes - Cardiac Exam Cardiac Exam: RRR - Pre-Operative Health Status ASA Pre-Surgery Classification: ASA3, Emergency Proposed Anesthetic Plan: MAC - Pulmonary COPD: No Hx Pneumonia: No - Cardiovascular System Hx Hypertension: Yes - Endocrine Hx End Stage Renal Disease: No - Hematic Hx Anemia: Yes - Additional Comments Anesthesia Medical History Comments: CHF, AMPHETAMINE ABUSE
--- NOTE | 2017-09-18 19:33 | Post Operative Note ---
Pre-op diagnosis: gi bleed Post-op diagnosis: same Findings: EGD: moderate/severe erosive esophagitis distal 1/2 esophagus (bx's) - small hiatal hernia small 6-7 mm white based ulcer antrum (bx's) - multiple ulcers throughout 1st/2nd/proximal 3rd portion duodenum with erythema and inflammation, no active bleeding requiring treatment noted (bx's _ negative other - given prep and egd findings no colonoscopy performed Procedure: EGD Anesthesia: MAC Surgeon: TRACY MCKEON Estimated blood loss: none Pathology: list Specimen disposition: to lab Condition: stable Disposition: floor
[2017-09-18] MEDS ORDERED: NACL ONE (20:55)
--- NOTE | 2017-09-18 21:46 | Cat Scan Report ---
FINAL REPORT PROCEDURE: CT ABDOMEN PELVIS W CON TECHNIQUE: Computerized axial tomography of the abdomen and pelvis was performed after the IV injection of iodinated nonionic contrast. HISTORY: abdominal pain COMPARISON: No prior studies are available for comparison. FINDINGS: Visualized right lung middle lobe demonstrates 1.6 x 1.2 centimeter solid-appearing lesion in the lateral segment adjacent to oblique fissure. Liver, spleen, adrenal glands are within normal limits. Calcifications are identified throughout pancreas consistent with chronic pancreatitis. Pancreatic duct is diffusely dilated measuring about 11 millimeters in maximal diameter. Common bile duct measures about 8 millimeters in diameter. There is evidence of prior cholecystectomy. Multiple simple appearing cystic lesions are identified in bilateral kidneys largest measuring 2.8 x 2.3 centimeters. There is no hydronephrosis. Urinary bladder is grossly distended with normal outlines. Moderate degree free fluid is noted in the peritoneal cavity. There are mild degree bilateral pleural effusions. There is no free air. Large amount of residual stool is noted in the colon. Appendix is not distinctly visualized. There are multiple mildly dilated loops of small bowel with air-fluid levels. Stool like material is noted in distal ileum IMPRESSION: 1.2 x 1.6 centimeter density in the right middle lobe is suspicious for a neoplasm. Differential diagnosis includes a small area of consolidation. A short-term follow-up after appropriate medical therapy is recommended to rule out malignancy. Moderate degree ascites and mild degree bilateral pleural effusions Changes of chronic pancreatitis with dilated pancreatic duct Urinary bladder is grossly distended. Large amount of residual stool in the colon with the mildly dilated small bowel loops most likely represents obstipation. Appendix is not visualized.
[2017-09-18] MEDS ORDERED: NACL 0.9% 250ML 250 ML ONE (23:21)
[2017-09-18] MEDS: PROTONIX 80 MG in NACL 0.9% 100 ML IV SCH (23:55)
[2017-09-19] MEDS: KEPPRA PO SCH ×3 (00:12→22:45)
[2017-09-19] MEDS: CARAFATE PO SCH ×5 (00:12→23:30)
[2017-09-19] MEDS: HumaLOG SUB-Q SCH ×5 (00:13→22:46)
[2017-09-19] MEDS: LOPRESSOR PO SCH ×3 (00:15→22:46)
[2017-09-19] MEDS: K-PHOS NEUTRAL PO SCH ×3 (01:02→14:25)
[2017-09-19] MEDS: CITRACAL D 315MG-250 UNITS PO SCH ×3 (01:02→22:44)
--- NOTE | 2017-09-19 02:28 | Consultation ---
INDICATION: GI bleed. REFERRING PHYSICIAN: Sagar Gonzalez MD HISTORY OF PRESENT ILLNESS: The patient is a 52-year-old white male with history of seizure disorder, who was admitted for altered mental status on 09/11/2017. The patient was found at that time in somebody else's backyard with a reported noted seizure. The patient was subsequently admitted. The patient reported today started noticing a lot of dark bloody stools and GI is consulted. The patient had no hematemesis. He denies any abdominal pain. He denies any weight loss. The patient denies any recent history of GI bleed, otherwise. The patient has a history of amphetamine use disorder. No other specific complaints. PAST MEDICAL HISTORY: 1. Diabetes. 2. Heart failure. 3. Hypertension. 4. Status post hernia repair. SOCIAL HISTORY: Alcohol abuse and smoker. ALLERGIES: No known drug allergies. FAMILY HISTORY: Negative for colon cancer. REVIEW OF SYSTEMS: GENERAL: Reports mild weakness. HEENT: No visual complaints. PULMONARY: Reports mild shortness of breath. CARDIOVASCULAR: Denies chest pain. GASTROINTESTINAL: Reports dark stools. All points of 13-point review of systems are otherwise benign. PHYSICAL EXAMINATION: VITAL SIGNS: Temperature of 98.0, pulse 100, respirations 20, blood pressure 105/71. GENERAL: Fairly thin, no acute distress. HEENT: Pupils are equal, round and reactive. PULMONARY: Rhonchi CARDIOVASCULAR: Regular rhythm. ABDOMEN: Soft. SKIN: No rashes. LABORATORY DATA: White count of 75, hemoglobin and hematocrit 6.6 and 20.9, platelet count of 263. Chem-7 is pertinent for potassium of 5.2, otherwise within normal limits. ASSESSMENT: A 52-year-old male with history of seizure disorder, admitted with mental status change, now with noted gastrointestinal bleed. The patient recently had hemoglobin of over 11. PLAN: 1. PPI IV drip. 2. Avoid NSAIDs and aspirin. 3. EGD and possible colonoscopy today. 4. Further recommendations based on the above. JOB# [id number] [facility] MTDD
[2017-09-19] MEDS: PROTONIX 80 MG in NACL 0.9% 100 ML IV SCH ×2 (08:09→18:57)
--- NOTE | 2017-09-19 08:51 | Operative Report ---
PROCEDURE: EGD. INDICATION: GI bleed. MEDICATIONS: Propofol per BILLING CLINICIAN. COMPLICATIONS: None. DESCRIPTION OF PROCEDURE: The patient was brought to the procedure suite. The patient had the procedure discussed with him at length. All risks, complications, and benefits discussed after which the patient signed for the procedure to be performed. The patient was placed in left lateral decubitus position. Mouth block was placed in the patient's oral cavity. After adequate sedation, medication as above, endoscope was placed into the mouth and brought to the level of the second portion of duodenum. Retroflexion view performed. The patient's vital signs remained stable throughout the procedure. FINDINGS: There was noted to be [id number] erosive esophagitis noted distal off of the esophagus, noted from 20 to 40 cm from the gums. Biopsies were taken and sent to pathology. A 2 cm hiatal hernia at GE junction at 40 cm from the gums. The esophagus otherwise appeared to be normal. There was a single 6 mm white base ulcer noted in the antrum. Biopsies were taken and sent to pathology. The remaining stomach otherwise appeared to be normal. There were diffuse ulcers and irritation noted throughout the first, second and proximal third portion of the duodenum. These had some ischemic like appearance and some inflammation. There were some red spots, but no other stigmata of bleeding requiring treatment at this time. Multiple biopsies were taken and sent to pathology. Remaining duodenum otherwise appeared to be normal. Retroflexion view performed in the stomach showed no other pathology other than noted above. The patient tolerated the procedure well. No complications during the procedure. IMPRESSION: 1. Hiatal hernia. 2. Vywgzozg-[id number]-jmqeta erosive esophagitis noted in distal half of the esophagus with biopsy performed. 3. Single small white base ulcer in the antrum with biopsies performed. 4. Otherwise, normal stomach. 5. Diffuse ulcers and irritation and inflammation noted in the first, second and proximal third of the duodenum with biopsies taken. Possible source of bleeding. RECOMMENDATIONS: 1. Followup biopsy results. 2. PPI IV drip. 3. Avoid NSAIDs and aspirin. 4. Carafate suspension q.i.d. 5. CT scan of abdomen and pelvis with contrast. 6. We will follow further recommendation based on progress. JOB# [id number] [facility]
[2017-09-19 09:31] LABS: BUN/Creatinine Ratio 83; Blood Urea Nitrogen 50 mg/dL (9-20); Hematocrit 35.2 % (35.5-45.6); Hemoglobin 11.4 gm/dl (11.8-15.2); Hemolysis Index 31; Mean Corpuscular HGB Conc 32 % (32-34); Mean Corpuscular Hemoglobin 30 pg (28-32); Mean Corpuscular Volume 94 fl (84-94); Platelet Count 272 K/mm3 (140-440); Red Blood Count 3.76 M/mm3 (3.65-5.03); Red Cell Distribution Width 15.2 % (13.2-15.2)
[2017-09-19 09:33] LABS: Alanine Aminotransferase 175 units/L (7-56); Albumin 1.7 g/dL (3.9-5); BUN/Creatinine Ratio 85; Blood Urea Nitrogen 51 mg/dL (9-20); Hemolysis Index 31
--- NOTE | 2017-09-19 09:35 | Progress Note ---
Assessment and Plan - Patient Problems (1) Scalp avulsion Onset Date: ~09/18/17 Current Visit: Yes Status: Acute Qualifiers: Encounter type: initial encounter Qualified Code(s): S08.0XXA - Avulsion of scalp, initial encounter Plan to address problem: s/p scalp laceration repair 09/18 - POD#1. Wound ok. Routine care. Will remove trevor in 10-14 days. Please call if there are any questions. Subjective Date of service: 09/19/17 Patient Reports: Positive: no new complaints Objective Vital Signs - 12hr 09/18/17 09/18/17 09/19/17 23:49 23:58 00:02 Temperature 97.6 F 97.9 F Pulse Rate 79 Respiratory 22 20 18 Rate Blood Pressure 89/49 89/49 O2 Sat by Pulse Oximetry 09/19/17 09/19/17 09/19/17 00:06 00:10 00:15 Temperature 97.9 F 97.3 F L Pulse Rate 71 Respiratory 20 Rate Blood Pressure 103/63 O2 Sat by Pulse 99 Oximetry 09/19/17 09/19/17 09/19/17 00:17 00:47 00:52 Temperature 97.3 F L 98.3 F 98.3 F Pulse Rate 71 71 Respiratory 20 20 Rate Blood Pressure 103/63 117/75 117/75 O2 Sat by Pulse 99 99 Oximetry 09/19/17 09/19/17 09/19/17 01:02 01:17 01:47 Temperature 97.6 F 97.6 F Pulse Rate 74 74 Respiratory 18 18 Rate Blood Pressure 110/72 119/71 119/71 O2 Sat by Pulse 99 99 Oximetry 09/19/17 09/19/17 09/19/17 01:56 02:50 02:55 Temperature 97.4 F L Pulse Rate 76 Respiratory 18 18 Rate Blood Pressure 119/71 115/68 O2 Sat by Pulse 94 Oximetry 09/19/17 09/19/17 09/19/17 02:58 04:03 04:07 Temperature 97.4 F L 97.6 F 97.6 F Pulse Rate 76 76 Respiratory 18 18 18 Rate Blood Pressure 115/68 125/86 125/86 O2 Sat by Pulse 94 94 Oximetry 09/19/17 09/19/17 09/19/17 04:22 04:29 04:52 Temperature 97.4 F L 97.4 F L 97.3 F L Pulse Rate 76 76 Respiratory 18 18 18 Rate Blood Pressure 123/83 123/83 130/83 O2 Sat by Pulse 100 100 100 Oximetry 09/19/17 09/19/17 09/19/17 05:10 05:22 05:52 Temperature 97.3 F L 97.8 F 97.9 F Pulse Rate 76 69 Respiratory 18 18 18 Rate Blood Pressure 130/83 135/88 153/88 O2 Sat by Pulse 100 100 Oximetry 09/19/17 09/19/17 09/19/17 05:53 06:32 06:38 Temperature 97.8 F 97.9 F 97.9 F Pulse Rate 69 Respiratory 18 18 18 Rate Blood Pressure 135/88 153/88 153/88 O2 Sat by Pulse 100 Oximetry - General physical appearance no distress, no pain, other (minimal interaction) - Respiratory normal expansion, normal respiratory effort - Integumentary other (Scalp laceration intact. Trevor intact. No drainage. No erythema. Tissue viable.) - Labs 09/19/17 08:59 09/19/17 08:59 Diabetes panel 09/19/17 09/19/17 Range/Units 08:59 08:59 Sodium 138 137 (137-145) mmol/L Potassium 4.6 4.6 (3.6-5.0) mmol/L Chloride 105.0 104.4 (98-107) mmol/L Carbon Dioxide 17 L 17 L (22-30) mmol/L BUN 50 H 51 H (9-20) mg/dL Creatinine 0.6 L 0.6 L (0.8-1.5) mg/dL Glucose 242 H 240 H (75-100) mg/dL Calcium 7.0 L 7.0 L (8.4-10.2) mg/dL AST 85 H (5-40) units/L ALT 175 H (7-56) units/L Alkaline Phosphatase 753 H (35-129) units/L Total Protein 4.3 L (6.3-8.2) g/dL Albumin 1.7 L (3.9-5) g/dL Calcium panel 09/19/17 09/19/17 Range/Units 08:59 08:59 Calcium 7.0 L 7.0 L (8.4-10.2) mg/dL Albumin 1.7 L (3.9-5) g/dL Pituitary panel 09/19/17 09/19/17 Range/Units 08:59 08:59 Sodium 138 137 (137-145) mmol/L Potassium 4.6 4.6 (3.6-5.0) mmol/L Chloride 105.0 104.4 (98-107) mmol/L Carbon Dioxide 17 L 17 L (22-30) mmol/L BUN 50 H 51 H (9-20) mg/dL Creatinine 0.6 L 0.6 L (0.8-1.5) mg/dL Glucose 242 H 240 H (75-100) mg/dL Calcium 7.0 L 7.0 L (8.4-10.2) mg/dL Adrenal panel 09/19/17 09/19/17 Range/Units 08:59 08:59 Sodium 138 137 (137-145) mmol/L Potassium 4.6 4.6 (3.6-5.0) mmol/L Chloride 105.0 104.4 (98-107) mmol/L Carbon Dioxide 17 L 17 L (22-30) mmol/L BUN 50 H 51 H (9-20) mg/dL Creatinine 0.6 L 0.6 L (0.8-1.5) mg/dL Glucose 242 H 240 H (75-100) mg/dL Calcium 7.0 L 7.0 L (8.4-10.2) mg/dL Total Bilirubin 0.90 (0.1-1.2) mg/dL AST 85 H (5-40) units/L ALT 175 H (7-56) units/L Alkaline Phosphatase 753 H (35-129) units/L Total Protein 4.3 L (6.3-8.2) g/dL Albumin 1.7 L (3.9-5) g/dL
[2017-09-19] MEDS: CALCIUM GLUCONATE PO SCH ×2 (10:00→11:00)
[2017-09-19 10:54] LABS: Band Neutrophils # (Manual) 1.2 K/mm3; Basophils % (Manual) 0 % (0.0-1.8); Eosinophils % (Manual) 0 % (0.0-4.3); Platelet Estimate Consistent w Auto; RBC Morphology Normal; Total Cells Counted 100
[2017-09-19] MEDS: ALDACTONE PO SCH (11:00)
[2017-09-19] MEDS: ZESTRIL PO SCH (11:00)
[2017-09-19] MEDS: SLOW-MAG PO SCH (11:00)
[2017-09-19] MEDS: ASPIRIN PO SCH (11:29)
[2017-09-19] MEDS: HEPARIN SUB-Q SCH ×2 (11:30→22:46)
[2017-09-19] MEDS: NORCO 5/325 PO PRN ×3 (12:57→23:30)
--- NOTE | 2017-09-19 15:33 | Progress Note ---
Assessment and Plan Assessment and plan: 52m who pw seizure. he was seen in ER, then signed out ama, after which he decided to check back in, While in the waiting room the patient had a witnessed generalized tonic-clonic seizure. 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 done Hypomagnesemia, hypophosphatemia Repleted Vitamin D deficiency -rx with vitamin D/Calcium supplement Hypocalcemia continue ca supplement -Hypokalemia was repleted -Elevated cardiac enzymes cardiac strain due to systolic CHF, malnutrition, seizure, dehydration and GIB, no further workup indicated Systolic CHF not in failure, monitor -Leukocytosis Likely marginalization from seizure activity We will trend -Amphetamine use disorder He has been counseled on cessation Severe malnutrition Dietitian consult Debility with frequent falls -case dw CM -as he is homeless, needs to be ambulatory enough to qualify for alf vs home with family with walker and home PT Case discussed with case management, patient is homeless and will need alf placement DVT Prophylaxis with Lovenox History Interval history: Review of systems Constitutional: He is complaining of generalized weakness CVS: No chest pain, no orthopnea, no dyspnea on exertion, has mild pedal edema GI: no more bloody stools Respiratory: No shortness of breath, no wheezing, no coughing Neuro; no seizures today Hospitalist Physical - Physical exam Narrative exam: General.: Appears chronically ill, emaciated HEENT: Moist mucous membranes, extraocular muscles intact, no lymphadenopathy Neck: supple Cardiac: S1-S2 heard Lungs: clear to auscultation bilaterally Abdomen: soft , nontender, nondistended, bowel sounds positive Extremities: 1+ pedal edema Skin: Patient has small wound on his shins Neurologic: no gross focal deficits Psych: appropriate behavior, appropriate mood, corporative, judgment intact - Constitutional Vitals: Temp Pulse Resp BP Pulse Ox 98.3 F 85 18 116/77 90 09/19/17 11:54 09/19/17 11:37 04/10/18 11:54 09/19/17 11:54 09/19/17 08:11 General appearance: Present: no acute distress, well-nourished Results - Labs CBC & Chem 7: 09/19/17 08:59 09/21/17 07:54 Labs: Laboratory Last Values WBC 24.4 K/mm3 (4.5-11.0) H 09/19/17 08:59 RBC 3.76 M/mm3 (3.65-5.03) 09/19/17 08:59 Hgb 11.4 gm/dl (11.8-15.2) L D 09/19/17 08:59 Hct 35.2 % (35.5-45.6) L D 09/19/17 08:59 MCV 94 fl (84-94) 09/19/17 08:59 MCH 30 pg (28-32) 09/19/17 08:59 MCHC 32 % (32-34) 09/19/17 08:59 RDW 15.2 % (13.2-15.2) 09/19/17 08:59 Plt Count 272 K/mm3 (140-440) 09/19/17 08:59 Lymph % (Auto) 12.8 % (13.4-35.0) L 09/16/17 05:47 [place] % (Auto) 3.7 % (0.0-7.3) 09/16/17 05:47 Eos % (Auto) 0.1 % (0.0-4.3) 09/16/17 05:47 Baso % (Auto) 0.1 % (0.0-1.8) 09/16/17 05:47 Lymph # 1.7 K/mm3 (1.2-5.4) 09/16/17 05:47 [place] # 0.5 K/mm3 (0.0-0.8) 09/16/17 05:47 Eos # 0.0 K/mm3 (0.0-0.4) 09/16/17 05:47 Baso # 0.0 K/mm3 (0.0-0.1) 09/16/17 05:47 Add Manual Diff Complete 09/19/17 08:59 Total Counted 100 09/19/17 08:59 Seg Neutrophils % Nurse Practitioner Physician Assistant 09/19/17 08:59 Seg Neuts % (Manual) 87.0 % (40.0-70.0) H 09/19/17 08:59 Band Neutrophils % 5.0 % 09/19/17 08:59 Lymphocytes % (Manual) 4.0 % (13.4-35.0) L 09/19/17 08:59 Reactive Lymphs % (Man) 0 % 09/19/17 08:59 Monocytes % (Manual) 4.0 % (0.0-7.3) 09/19/17 08:59 Eosinophils % (Manual) 0 % (0.0-4.3) 09/19/17 08:59 Basophils % (Manual) 0 % (0.0-1.8) 09/19/17 08:59 Metamyelocytes % 0 % 09/19/17 08:59 Myelocytes % 0 % 09/19/17 08:59 Promyelocytes % 0 % 09/19/17 08:59 Blast Cells % 0 % 09/19/17 08:59 Nucleated RBC % Not Reportable 09/19/17 08:59 Seg Neutrophils # 11.2 K/mm3 (1.8-7.7) H 09/16/17 05:47 Seg Neutrophils # Man 21.2 K/mm3 (1.8-7.7) H 09/19/17 08:59 Band Neutrophils # 1.2 K/mm3 09/19/17 08:59 Lymphocytes # (Manual) 1.0 K/mm3 (1.2-5.4) L 09/19/17 08:59 Abs React Lymphs (Man) 0.0 K/mm3 09/19/17 08:59 Monocytes # (Manual) 1.0 K/mm3 (0.0-0.8) H 09/19/17 08:59 Eosinophils # (Manual) 0.0 K/mm3 (0.0-0.4) 09/19/17 08:59 Basophils # (Manual) 0.0 K/mm3 (0.0-0.1) 09/19/17 08:59 Metamyelocytes # 0.0 K/mm3 09/19/17 08:59 Myelocytes # 0.0 K/mm3 09/19/17 08:59 Promyelocytes # 0.0 K/mm3 09/19/17 08:59 Blast Cells # 0.0 K/mm3 09/19/17 08:59 WBC Morphology Not Reportable 09/19/17 08:59 Hypersegmented Neuts Not Reportable 09/19/17 08:59 Hyposegmented Neuts Not Reportable 09/19/17 08:59 Hypogranular Neuts Not Reportable 09/19/17 08:59 Smudge Cells Not Reportable 09/19/17 08:59 Toxic Granulation Not Reportable 09/19/17 08:59 Toxic Vacuolation Not Reportable 09/19/17 08:59 Dohle Bodies Not Reportable 09/19/17 08:59 Pelger-Huet Anomaly Not Reportable 09/19/17 08:59 Tray Rods Not Reportable 09/19/17 08:59 Platelet Estimate Consistent w auto 09/19/17 08:59 Clumped Platelets Not Reportable 09/19/17 08:59 Plt Clumps, EDTA Not Reportable 09/19/17 08:59 Large Platelets Not Reportable 09/19/17 08:59 Giant Platelets Not Reportable 09/19/17 08:59 Platelet Satelliting Not Reportable 09/19/17 08:59 Plt Morphology Comment Not Reportable 09/19/17 08:59 RBC Morphology Normal 09/19/17 08:59 Dimorphic RBCs Not Reportable 09/19/17 08:59 Polychromasia Not Reportable 09/19/17 08:59 Hypochromasia Not Reportable 09/19/17 08:59 Poikilocytosis Not Reportable 09/19/17 08:59 Anisocytosis Not Reportable 09/19/17 08:59 Microcytosis Not Reportable 09/19/17 08:59 Macrocytosis Not Reportable 09/19/17 08:59 Spherocytes Not Reportable 09/19/17 08:59 Pappenheimer Bodies Not Reportable 09/19/17 08:59 Sickle Cells Not Reportable 09/19/17 08:59 Target Cells Not Reportable 09/19/17 08:59 Tear Drop Cells Not Reportable 09/19/17 08:59 Ovalocytes Not Reportable 09/19/17 08:59 Helmet Cells Not Reportable 09/19/17 08:59 Hdz-[place] Bodies Not Reportable 09/19/17 08:59 [place] Rings Not Reportable 09/19/17 08:59 Nancy Cells Not Reportable 09/19/17 08:59 Bite Cells Not Reportable 09/19/17 08:59 Crenated Cell Not Reportable 09/19/17 08:59 Elliptocytes Not Reportable 09/19/17 08:59 Acanthocytes (Spur) Not Reportable 09/19/17 08:59 Rouleaux Not Reportable 09/19/17 08:59 Hemoglobin C Crystals Not Reportable 09/19/17 08:59 Schistocytes Not Reportable 09/19/17 08:59 Malaria parasites Not Reportable 09/19/17 08:59 Danie Bodies Not Reportable 09/19/17 08:59 Hem Pathologist Commnt No 09/19/17 08:59 PT 15.7 Sec. (12.2-14.9) H 09/14/17 05:43 INR 1.18 (0.87-1.13) H 09/14/17 05:43 Sodium 137 mmol/L (137-145) 09/19/17 08:59 Potassium 4.6 mmol/L (3.6-5.0) 09/19/17 08:59 Chloride 104.4 mmol/L (98-107) 09/19/17 08:59 Carbon Dioxide 17 mmol/L (22-30) L 09/19/17 08:59 Anion Gap 20 mmol/L 09/19/17 08:59 BUN 51 mg/dL (9-20) H 09/19/17 08:59 Creatinine 0.6 mg/dL (0.8-1.5) L 09/19/17 08:59 Estimated GFR > 60 ml/min 09/19/17 08:59 BUN/Creatinine Ratio 85 % 09/19/17 08:59 Glucose 240 mg/dL (75-100) H 09/19/17 08:59 POC Glucose 338 (70-105) H 09/19/17 12:04 Calcium 7.0 mg/dL (8.4-10.2) L 09/19/17 08:59 Phosphorus 5.60 mg/dL (2.5-4.5) H D 09/19/17 08:59 Magnesium 1.70 mg/dL (1.7-2.3) 09/19/17 08:59 Total Bilirubin 0.90 mg/dL (0.1-1.2) 09/19/17 08:59 AST 85 units/L (5-40) H 09/19/17 08:59 ALT 175 units/L (7-56) H 09/19/17 08:59 Alkaline Phosphatase 753 units/L (35-129) H 09/19/17 08:59 Total Creatine Kinase 77 units/L (55-170) 09/13/17 00:51 CK-MB (CK-2) 8.5 ng/mL (0.0-4.0) H 09/13/17 00:51 CK-MB (CK-2) Rel Index 11.0 (0-4) H 09/13/17 00:51 Troponin T 0.035 ng/mL (0.00-0.029) H D 09/13/17 00:51 NT-Pro-B Natriuret Pep 2723 pg/mL (0-900) H 09/13/17 00:51 Total Protein 4.3 g/dL (6.3-8.2) L 09/19/17 08:59 Albumin 1.7 g/dL (3.9-5) L 09/19/17 08:59 Albumin/Globulin Ratio 0.7 % 09/19/17 08:59 Triglycerides 48 mg/dL (2-149) 09/13/17 00:51 Cholesterol 103 mg/dL (50-199) 09/13/17 00:51 LDL Cholesterol Direct 31 mg/dL (50-130) L 09/13/17 00:51 HDL Cholesterol 65 mg/dL (40-59) H 09/13/17 00:51 Cholesterol/HDL Ratio 1.58 % 09/13/17 00:51 PTH Intact 218.5 pg/mL (15-65) H 09/17/17 16:06 Urine Creatinine 9.9 mg/dL (0.1-20.0) 09/13/17 21:57 Urine Microalbumin < 1.2 mg/dL (0.1-34.0) 09/13/17 21:57 Microalb/Creat Ratio 121.2 ug/mg 09/13/17 21:57 C. difficile Toxin A&B Negative (Negative) 09/18/17 06:30 Blood Type A NEGATIVE 09/18/17 20:37 Antibody Screen Negative 09/18/17 20:37 Crossmatch See Detail 09/18/17 20:37
--- NOTE | 2017-09-19 19:06 | Gastroenterology Progress Note ---
Assessment and Plan GI: s/p egd w/ esophagitis and ulcers duodenal - pt bx's pending - h/h stable - continue PPI/Carafate as outpt - continue other meds and diet Pulm: incidental lung lesion noted on CT scan with close follow up outpt recommended - discussed w/pt and needs to follow up pmd as outpt - pt stable fro d/c from GI standpoint on omeds above - will sign off, call if needed Subjective Date of service: 09/19/17 Principal diagnosis: acute hypoxemic respiratory failure, Interval history: - no further signs bleeding overnight. Pt wants to eat Objective - Constitutional Vitals: Temp Pulse Resp BP Pulse Ox 98.3 F 80 18 116/77 90 09/19/17 11:54 09/19/17 14:33 09/19/17 11:54 09/19/17 11:54 09/19/17 08:11 General appearance: no acute distress - Respiratory Respiratory: bilateral: CTA - Cardiovascular Rhythm: regular Heart Sounds: Present: S1 & S2 - Gastrointestinal General gastrointestinal: Present: soft, non-tender, non-distended - Labs CBC & Chem 7: 09/19/17 08:59 09/19/17 08:59 Labs: Laboratory Results - last 24 hr 09/18/17 09/18/17 09/18/17 07:55 20:37 21:36 WBC RBC Hgb Hct MCV MCH MCHC RDW Plt Count Add Manual Diff Total Counted Seg Neutrophils % Seg Neuts % (Manual) Band Neutrophils % Lymphocytes % (Manual) Reactive Lymphs % (Man) Monocytes % (Manual) Eosinophils % (Manual) Basophils % (Manual) Metamyelocytes % Myelocytes % Promyelocytes % Blast Cells % Nucleated RBC % Seg Neutrophils # Man Band Neutrophils # Lymphocytes # (Manual) Abs React Lymphs (Man) Monocytes # (Manual) Eosinophils # (Manual) Basophils # (Manual) Metamyelocytes # Myelocytes # Promyelocytes # Blast Cells # WBC Morphology Hypersegmented Neuts Hyposegmented Neuts Hypogranular Neuts Smudge Cells Toxic Granulation Toxic Vacuolation Dohle Bodies Pelger-Huet Anomaly Tray Rods Platelet Estimate Clumped Platelets Plt Clumps, EDTA Large Platelets Giant Platelets Platelet Satelliting Plt Morphology Comment RBC Morphology Dimorphic RBCs Polychromasia Hypochromasia Poikilocytosis Anisocytosis Microcytosis Macrocytosis Spherocytes Pappenheimer Bodies Sickle Cells Target Cells Tear Drop Cells Ovalocytes Helmet Cells Hdz-[place] Bodies [place] Rings [place] Cells Bite Cells Crenated Cell Elliptocytes Acanthocytes (Spur) Rouleaux Hemoglobin C Crystals Schistocytes Malaria parasites Danie Bodies Hem Pathologist Commnt Sodium Potassium Chloride Carbon Dioxide Anion Gap BUN Creatinine Estimated GFR BUN/Creatinine Ratio Glucose POC Glucose 70 174 H Calcium Phosphorus Magnesium Total Bilirubin AST ALT Alkaline Phosphatase Total Protein Albumin Albumin/Globulin Ratio Blood Type A NEGATIVE Antibody Screen Negative Crossmatch See Detail 09/19/17 09/19/17 09/19/17 05:50 08:59 08:59 WBC 24.4 H RBC 3.76 Hgb 11.4 L D Hct 35.2 L D MCV 94 MCH 30 MCHC 32 RDW 15.2 Plt Count 272 Add Manual Diff Complete Total Counted 100 Seg Neutrophils % Screen Printing Paster Seg Neuts % (Manual) 87.0 H Band Neutrophils % 5.0 Lymphocytes % (Manual) 4.0 L Reactive Lymphs % (Man) 0 Monocytes % (Manual) 4.0 Eosinophils % (Manual) 0 Basophils % (Manual) 0 Metamyelocytes % 0 Myelocytes % 0 Promyelocytes % 0 Blast Cells % 0 Nucleated RBC % Not Reportable Seg Neutrophils # Man 21.2 H Band Neutrophils # 1.2 Lymphocytes # (Manual) 1.0 L Abs React Lymphs (Man) 0.0 Monocytes # (Manual) 1.0 H Eosinophils # (Manual) 0.0 Basophils # (Manual) 0.0 Metamyelocytes # 0.0 Myelocytes # 0.0 Promyelocytes # 0.0 Blast Cells # 0.0 WBC Morphology Not Reportable Hypersegmented Neuts Not Reportable Hyposegmented Neuts Not Reportable Hypogranular Neuts Not Reportable Smudge Cells Not Reportable Toxic Granulation Not Reportable Toxic Vacuolation Not Reportable Dohle Bodies Not Reportable Pelger-Huet Anomaly Not Reportable Tray Rods Not Reportable Platelet Estimate Consistent w auto Clumped Platelets Not Reportable Plt Clumps, EDTA Not Reportable Large Platelets Not Reportable Giant Platelets Not Reportable Platelet Satelliting Not Reportable Plt Morphology Comment Not Reportable RBC Morphology Normal Dimorphic RBCs Not Reportable Polychromasia Not Reportable Hypochromasia Not Reportable Poikilocytosis Not Reportable Anisocytosis Not Reportable Microcytosis Not Reportable Macrocytosis Not Reportable Spherocytes Not Reportable Pappenheimer Bodies Not Reportable Sickle Cells Not Reportable Target Cells Not Reportable Tear Drop Cells Not Reportable Ovalocytes Not Reportable Helmet Cells Not Reportable Hdz-[place] Bodies Not Reportable [place] Rings Not Reportable [place] Cells Not Reportable Bite Cells Not Reportable Crenated Cell Not Reportable Elliptocytes Not Reportable Acanthocytes (Spur) Not Reportable Rouleaux Not Reportable Hemoglobin C Crystals Not Reportable Schistocytes Not Reportable Malaria parasites Not Reportable Danie Bodies Not Reportable Hem Pathologist Commnt No Sodium 138 Potassium 4.6 Chloride 105.0 Carbon Dioxide 17 L Anion Gap 21 BUN 50 H Creatinine 0.6 L Estimated GFR > 60 BUN/Creatinine Ratio 83 Glucose 242 H POC Glucose 121 H Calcium 7.0 L Phosphorus 5.60 H D Magnesium 1.70 Total Bilirubin AST ALT Alkaline Phosphatase Total Protein Albumin Albumin/Globulin Ratio Blood Type Antibody Screen Crossmatch 09/19/17 09/19/17 08:59 12:04 WBC RBC Hgb Hct MCV MCH MCHC RDW Plt Count Add Manual Diff Total Counted Seg Neutrophils % Seg Neuts % (Manual) Band Neutrophils % Lymphocytes % (Manual) Reactive Lymphs % (Man) Monocytes % (Manual) Eosinophils % (Manual) Basophils % (Manual) Metamyelocytes % Myelocytes % Promyelocytes % Blast Cells % Nucleated RBC % Seg Neutrophils # Man Band Neutrophils # Lymphocytes # (Manual) Abs React Lymphs (Man) Monocytes # (Manual) Eosinophils # (Manual) Basophils # (Manual) Metamyelocytes # Myelocytes # Promyelocytes # Blast Cells # WBC Morphology Hypersegmented Neuts Hyposegmented Neuts Hypogranular Neuts Smudge Cells Toxic Granulation Toxic Vacuolation Dohle Bodies Pelger-Huet Anomaly Tray Rods Platelet Estimate Clumped Platelets Plt Clumps, EDTA Large Platelets Giant Platelets Platelet Satelliting Plt Morphology Comment RBC Morphology Dimorphic RBCs Polychromasia Hypochromasia Poikilocytosis Anisocytosis Microcytosis Macrocytosis Spherocytes Pappenheimer Bodies Sickle Cells Target Cells Tear Drop Cells Ovalocytes Helmet Cells Hdz-[place] Bodies [place] Rings [place] Cells Bite Cells Crenated Cell Elliptocytes Acanthocytes (Spur) Rouleaux Hemoglobin C Crystals Schistocytes Malaria parasites Danie Bodies Hem Pathologist Commnt Sodium 137 Potassium 4.6 Chloride 104.4 Carbon Dioxide 17 L Anion Gap 20 BUN 51 H Creatinine 0.6 L Estimated GFR > 60 BUN/Creatinine Ratio 85 Glucose 240 H POC Glucose 338 H Calcium 7.0 L Phosphorus Magnesium Total Bilirubin 0.90 AST 85 H ALT 175 H Alkaline Phosphatase 753 H Total Protein 4.3 L Albumin 1.7 L Albumin/Globulin Ratio 0.7 Blood Type Antibody Screen Crossmatch
[2017-09-20] MEDS: CARAFATE PO SCH ×3 (05:51→19:35)
[2017-09-20] MEDS: NORCO 5/325 PO PRN ×2 (05:51→12:42)
[2017-09-20 06:14] LABS: BUN/Creatinine Ratio 75; Blood Urea Nitrogen 45 mg/dL (9-20); Calcium 6.9 mg/dL (8.4-10.2); Hemolysis Index 39
[2017-09-20] MEDS: PROTONIX 80 MG in NACL 0.9% 100 ML IV SCH (07:32)
[2017-09-20] MEDS: HumaLOG SUB-Q SCH ×4 (08:13→23:38)
[2017-09-20] MEDS: SLOW-MAG PO SCH (10:05)
[2017-09-20] MEDS: CITRACAL D 315MG-250 UNITS PO SCH ×2 (10:05→22:26)
[2017-09-20] MEDS: ALDACTONE PO SCH (10:05)
[2017-09-20] MEDS: LOPRESSOR PO SCH ×2 (10:06→22:15)
[2017-09-20] MEDS: ZESTRIL PO SCH (10:06)
[2017-09-20] MEDS: KEPPRA PO SCH ×2 (10:06→22:15)
[2017-09-20] MEDS: ASPIRIN PO SCH (10:09)
[2017-09-20] MEDS: HEPARIN SUB-Q SCH ×2 (10:09→22:14)
[2017-09-21] MEDS: CARAFATE PO SCH ×5 (01:07→23:12)
[2017-09-21] MEDS: NORCO 5/325 PO PRN ×3 (01:07→23:19)
[2017-09-21] MEDS: HumaLOG SUB-Q SCH ×5 (07:45→23:07)
[2017-09-21 08:38] LABS: BUN/Creatinine Ratio 64; Blood Urea Nitrogen 32 mg/dL (9-20); Calcium 6.6 mg/dL (8.4-10.2); Hemolysis Index 7
[2017-09-21] MEDS: HEPARIN SUB-Q SCH ×2 (10:13→23:11)
[2017-09-21] MEDS: ASPIRIN PO SCH (10:14)
[2017-09-21] MEDS: KEPPRA PO SCH ×2 (10:14→23:11)
[2017-09-21] MEDS: SLOW-MAG PO SCH ×2 (10:14→14:28)
[2017-09-21] MEDS: ZESTRIL PO SCH (10:14)
[2017-09-21] MEDS: PROTONIX PO SCH (10:14)
[2017-09-21] MEDS: LOPRESSOR PO SCH ×2 (10:14→23:05)
--- NOTE | 2017-09-21 11:37 | Progress Note ---
Assessment and Plan Assessment and plan: 52m who pw seizure. he was seen in ER, then signed out ama, after which he decided to check back in, While in the waiting room the patient had a witnessed generalized tonic-clonic seizure. 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 done Hypomagnesemia, hypophosphatemia Repleted Vitamin D deficiency -rx with vitamin D/Calcium supplement Hypocalcemia continue ca supplement -Hypokalemia was repleted -Elevated cardiac enzymes cardiac strain due to systolic CHF, malnutrition, seizure, dehydration and GIB, no further workup indicated Systolic CHF not in failure, monitor -Leukocytosis Likely marginalization from seizure activity We will trend -Amphetamine use disorder He has been counseled on cessation Severe malnutrition Dietitian consult Debility with frequent falls -case dw CM -as he is homeless, needs to be ambulatory enough to qualify for fdc vs home with family with walker and home PT Case discussed with case management, patient is homeless and will need fdc placement DVT Prophylaxis with Lovenox Dispo; dc either to family vs fdc, currently stable for dc with family, but too unsteady on his feet for dc to fdc History Interval history: Review of systems Constitutional: He is complaining of generalized weakness CVS: No chest pain, no orthopnea, no dyspnea on exertion, has mild pedal edema GI: no more bloody stools Respiratory: No shortness of breath, no wheezing, no coughing Neuro; no seizures today Hospitalist Physical - Physical exam Narrative exam: General.: Appears chronically ill, emaciated HEENT: Moist mucous membranes, extraocular muscles intact, no lymphadenopathy Neck: supple Cardiac: S1-S2 heard Lungs: clear to auscultation bilaterally Abdomen: soft , nontender, nondistended, bowel sounds positive Extremities: 1+ pedal edema Skin: Patient has small wound on his shins Neurologic: no gross focal deficits Psych: appropriate behavior, appropriate mood, corporative, judgment intact - Constitutional Vitals: Temp Pulse Resp BP Pulse Ox 98.3 F 76 18 93/62 97 09/20/17 22:08 09/21/17 07:41 09/20/17 22:08 09/21/17 07:41 09/21/17 07:41 General appearance: Present: no acute distress, well-nourished Results - Labs CBC & Chem 7: 09/19/17 08:59 09/21/17 07:54 Labs: Laboratory Last Values WBC 24.4 K/mm3 (4.5-11.0) H 09/19/17 08:59 RBC 3.76 M/mm3 (3.65-5.03) 09/19/17 08:59 Hgb 11.4 gm/dl (11.8-15.2) L D 09/19/17 08:59 Hct 35.2 % (35.5-45.6) L D 09/19/17 08:59 MCV 94 fl (84-94) 09/19/17 08:59 MCH 30 pg (28-32) 09/19/17 08:59 MCHC 32 % (32-34) 09/19/17 08:59 RDW 15.2 % (13.2-15.2) 09/19/17 08:59 Plt Count 272 K/mm3 (140-440) 09/19/17 08:59 Lymph % (Auto) 12.8 % (13.4-35.0) L 09/16/17 05:47 [place] % (Auto) 3.7 % (0.0-7.3) 09/16/17 05:47 Eos % (Auto) 0.1 % (0.0-4.3) 09/16/17 05:47 Baso % (Auto) 0.1 % (0.0-1.8) 09/16/17 05:47 Lymph # 1.7 K/mm3 (1.2-5.4) 09/16/17 05:47 [place] # 0.5 K/mm3 (0.0-0.8) 09/16/17 05:47 Eos # 0.0 K/mm3 (0.0-0.4) 09/16/17 05:47 Baso # 0.0 K/mm3 (0.0-0.1) 09/16/17 05:47 Add Manual Diff Complete 09/19/17 08:59 Total Counted 100 09/19/17 08:59 Seg Neutrophils % Siderographer 09/19/17 08:59 Seg Neuts % (Manual) 87.0 % (40.0-70.0) H 09/19/17 08:59 Band Neutrophils % 5.0 % 09/19/17 08:59 Lymphocytes % (Manual) 4.0 % (13.4-35.0) L 09/19/17 08:59 Reactive Lymphs % (Man) 0 % 09/19/17 08:59 Monocytes % (Manual) 4.0 % (0.0-7.3) 09/19/17 08:59 Eosinophils % (Manual) 0 % (0.0-4.3) 09/19/17 08:59 Basophils % (Manual) 0 % (0.0-1.8) 09/19/17 08:59 Metamyelocytes % 0 % 09/19/17 08:59 Myelocytes % 0 % 09/19/17 08:59 Promyelocytes % 0 % 09/19/17 08:59 Blast Cells % 0 % 09/19/17 08:59 Nucleated RBC % Not Reportable 09/19/17 08:59 Seg Neutrophils # 11.2 K/mm3 (1.8-7.7) H 09/16/17 05:47 Seg Neutrophils # Man 21.2 K/mm3 (1.8-7.7) H 09/19/17 08:59 Band Neutrophils # 1.2 K/mm3 09/19/17 08:59 Lymphocytes # (Manual) 1.0 K/mm3 (1.2-5.4) L 09/19/17 08:59 Abs React Lymphs (Man) 0.0 K/mm3 09/19/17 08:59 Monocytes # (Manual) 1.0 K/mm3 (0.0-0.8) H 09/19/17 08:59 Eosinophils # (Manual) 0.0 K/mm3 (0.0-0.4) 09/19/17 08:59 Basophils # (Manual) 0.0 K/mm3 (0.0-0.1) 09/19/17 08:59 Metamyelocytes # 0.0 K/mm3 09/19/17 08:59 Myelocytes # 0.0 K/mm3 09/19/17 08:59 Promyelocytes # 0.0 K/mm3 09/19/17 08:59 Blast Cells # 0.0 K/mm3 09/19/17 08:59 WBC Morphology Not Reportable 09/19/17 08:59 Hypersegmented Neuts Not Reportable 09/19/17 08:59 Hyposegmented Neuts Not Reportable 09/19/17 08:59 Hypogranular Neuts Not Reportable 09/19/17 08:59 Smudge Cells Not Reportable 09/19/17 08:59 Toxic Granulation Not Reportable 09/19/17 08:59 Toxic Vacuolation Not Reportable 09/19/17 08:59 Dohle Bodies Not Reportable 09/19/17 08:59 Pelger-Huet Anomaly Not Reportable 09/19/17 08:59 Tray Rods Not Reportable 09/19/17 08:59 Platelet Estimate Consistent w auto 09/19/17 08:59 Clumped Platelets Not Reportable 09/19/17 08:59 Plt Clumps, EDTA Not Reportable 09/19/17 08:59 Large Platelets Not Reportable 09/19/17 08:59 Giant Platelets Not Reportable 09/19/17 08:59 Platelet Satelliting Not Reportable 09/19/17 08:59 Plt Morphology Comment Not Reportable 09/19/17 08:59 RBC Morphology Normal 09/19/17 08:59 Dimorphic RBCs Not Reportable 09/19/17 08:59 Polychromasia Not Reportable 09/19/17 08:59 Hypochromasia Not Reportable 09/19/17 08:59 Poikilocytosis Not Reportable 09/19/17 08:59 Anisocytosis Not Reportable 09/19/17 08:59 Microcytosis Not Reportable 09/19/17 08:59 Macrocytosis Not Reportable 09/19/17 08:59 Spherocytes Not Reportable 09/19/17 08:59 Pappenheimer Bodies Not Reportable 09/19/17 08:59 Sickle Cells Not Reportable 09/19/17 08:59 Target Cells Not Reportable 09/19/17 08:59 Tear Drop Cells Not Reportable 09/19/17 08:59 Ovalocytes Not Reportable 09/19/17 08:59 Helmet Cells Not Reportable 09/19/17 08:59 Hdz-[place] Bodies Not Reportable 09/19/17 08:59 [place] Rings Not Reportable 09/19/17 08:59 [place] Cells Not Reportable 09/19/17 08:59 Bite Cells Not Reportable 09/19/17 08:59 Crenated Cell Not Reportable 09/19/17 08:59 Elliptocytes Not Reportable 09/19/17 08:59 Acanthocytes (Spur) Not Reportable 09/19/17 08:59 Rouleaux Not Reportable 09/19/17 08:59 Hemoglobin C Crystals Not Reportable 09/19/17 08:59 Schistocytes Not Reportable 09/19/17 08:59 Malaria parasites Not Reportable 09/19/17 08:59 Danie Bodies Not Reportable 09/19/17 08:59 Hem Pathologist Commnt No 09/19/17 08:59 PT 15.7 Sec. (12.2-14.9) H 09/14/17 05:43 INR 1.18 (0.87-1.13) H 09/14/17 05:43 Sodium 136 mmol/L (137-145) L 09/21/17 07:54 Potassium 4.3 mmol/L (3.6-5.0) 09/21/17 07:54 Chloride 104.4 mmol/L (98-107) 09/21/17 07:54 Carbon Dioxide 22 mmol/L (22-30) 09/21/17 07:54 Anion Gap 14 mmol/L 09/21/17 07:54 BUN 32 mg/dL (9-20) H 09/21/17 07:54 Creatinine 0.5 mg/dL (0.8-1.5) L 09/21/17 07:54 Estimated GFR > 60 ml/min 09/21/17 07:54 BUN/Creatinine Ratio 64 % 09/21/17 07:54 Glucose 157 mg/dL (75-100) H 09/21/17 07:54 POC Glucose 207 (70-105) H 09/21/17 08:21 Calcium 6.6 mg/dL (8.4-10.2) L 09/21/17 07:54 Phosphorus 1.90 mg/dL (2.5-4.5) L D 09/21/17 07:54 Magnesium 1.50 mg/dL (1.7-2.3) L 09/21/17 07:54 Total Bilirubin 0.90 mg/dL (0.1-1.2) 09/19/17 08:59 AST 85 units/L (5-40) H 09/19/17 08:59 ALT 175 units/L (7-56) H 09/19/17 08:59 Alkaline Phosphatase 753 units/L (35-129) H 09/19/17 08:59 Total Creatine Kinase 77 units/L (55-170) 09/13/17 00:51 CK-MB (CK-2) 8.5 ng/mL (0.0-4.0) H 09/13/17 00:51 CK-MB (CK-2) Rel Index 11.0 (0-4) H 09/13/17 00:51 Troponin T 0.035 ng/mL (0.00-0.029) H D 09/13/17 00:51 NT-Pro-B Natriuret Pep 2723 pg/mL (0-900) H 09/13/17 00:51 Total Protein 4.3 g/dL (6.3-8.2) L 09/19/17 08:59 Albumin 1.7 g/dL (3.9-5) L 09/19/17 08:59 Albumin/Globulin Ratio 0.7 % 09/19/17 08:59 Triglycerides 48 mg/dL (2-149) 09/13/17 00:51 Cholesterol 103 mg/dL (50-199) 09/13/17 00:51 LDL Cholesterol Direct 31 mg/dL (50-130) L 09/13/17 00:51 HDL Cholesterol 65 mg/dL (40-59) H 09/13/17 00:51 Cholesterol/HDL Ratio 1.58 % 09/13/17 00:51 PTH Intact 218.5 pg/mL (15-65) H 09/17/17 16:06 Urine Creatinine 9.9 mg/dL (0.1-20.0) 09/13/17 21:57 Urine Microalbumin < 1.2 mg/dL (0.1-34.0) 09/13/17 21:57 Microalb/Creat Ratio 121.2 ug/mg 09/13/17 21:57 C. difficile Toxin A&B Negative (Negative) 04/09/18 06:30 Blood Type A NEGATIVE 09/18/17 20:37 Antibody Screen Negative 09/18/17 20:37 Crossmatch See Detail 09/18/17 20:37
--- NOTE | 2017-09-21 11:37 | Progress Note ---
Assessment and Plan Assessment and plan: 52m who pw seizure. he was seen in ER, then signed out ama, after which he decided to check back in, While in the waiting room the patient had a witnessed generalized tonic-clonic seizure. 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 done Hypomagnesemia, hypophosphatemia Repleted Vitamin D deficiency -rx with vitamin D/Calcium supplement Hypocalcemia continue ca supplement -Hypokalemia was repleted -Elevated cardiac enzymes cardiac strain due to systolic CHF, malnutrition, seizure, dehydration and GIB, no further workup indicated Systolic CHF not in failure, monitor -Leukocytosis Likely marginalization from seizure activity We will trend -Amphetamine use disorder He has been counseled on cessation Severe malnutrition Dietitian consult Debility with frequent falls -case dw CM -as he is homeless, needs to be ambulatory enough to qualify for longterm vs home with family with walker and home PT Case discussed with case management, patient is homeless and will need longterm placement DVT Prophylaxis with Lovenox Dispo; dc either to family vs longterm, currently stable for dc with family, but too unsteady on his feet for dc to longterm History Interval history: Review of systems Constitutional: He is complaining of generalized weakness CVS: No chest pain, no orthopnea, no dyspnea on exertion, has mild pedal edema GI: no more bloody stools Respiratory: No shortness of breath, no wheezing, no coughing Neuro; no seizures today Hospitalist Physical - Physical exam Narrative exam: General.: Appears chronically ill, emaciated HEENT: Moist mucous membranes, extraocular muscles intact, no lymphadenopathy Neck: supple Cardiac: S1-S2 heard Lungs: clear to auscultation bilaterally Abdomen: soft , nontender, nondistended, bowel sounds positive Extremities: 1+ pedal edema Skin: Patient has small wound on his shins Neurologic: no gross focal deficits Psych: appropriate behavior, appropriate mood, corporative, judgment intact - Constitutional Vitals: Temp Pulse Resp BP Pulse Ox 98.3 F 76 18 93/62 97 09/20/17 22:08 09/21/17 07:41 09/20/17 22:08 09/21/17 07:41 09/21/17 07:41 General appearance: Present: no acute distress, well-nourished Results - Labs CBC & Chem 7: 09/19/17 08:59 09/21/17 07:54 Labs: Laboratory Last Values WBC 24.4 K/mm3 (4.5-11.0) H 09/19/17 08:59 RBC 3.76 M/mm3 (3.65-5.03) 09/19/17 08:59 Hgb 11.4 gm/dl (11.8-15.2) L D 09/19/17 08:59 Hct 35.2 % (35.5-45.6) L D 09/19/17 08:59 MCV 94 fl (84-94) 09/19/17 08:59 MCH 30 pg (28-32) 09/19/17 08:59 MCHC 32 % (32-34) 09/19/17 08:59 RDW 15.2 % (13.2-15.2) 09/19/17 08:59 Plt Count 272 K/mm3 (140-440) 09/19/17 08:59 Lymph % (Auto) 12.8 % (13.4-35.0) L 09/16/17 05:47 [place] % (Auto) 3.7 % (0.0-7.3) 09/16/17 05:47 Eos % (Auto) 0.1 % (0.0-4.3) 09/16/17 05:47 Baso % (Auto) 0.1 % (0.0-1.8) 09/16/17 05:47 Lymph # 1.7 K/mm3 (1.2-5.4) 09/16/17 05:47 [place] # 0.5 K/mm3 (0.0-0.8) 09/16/17 05:47 Eos # 0.0 K/mm3 (0.0-0.4) 09/16/17 05:47 Baso # 0.0 K/mm3 (0.0-0.1) 09/16/17 05:47 Add Manual Diff Complete 09/19/17 08:59 Total Counted 100 09/19/17 08:59 Seg Neutrophils % English Language Learner Teacher 09/19/17 08:59 Seg Neuts % (Manual) 87.0 % (40.0-70.0) H 09/19/17 08:59 Band Neutrophils % 5.0 % 09/19/17 08:59 Lymphocytes % (Manual) 4.0 % (13.4-35.0) L 09/19/17 08:59 Reactive Lymphs % (Man) 0 % 09/19/17 08:59 Monocytes % (Manual) 4.0 % (0.0-7.3) 09/19/17 08:59 Eosinophils % (Manual) 0 % (0.0-4.3) 09/19/17 08:59 Basophils % (Manual) 0 % (0.0-1.8) 09/19/17 08:59 Metamyelocytes % 0 % 09/19/17 08:59 Myelocytes % 0 % 09/19/17 08:59 Promyelocytes % 0 % 09/19/17 08:59 Blast Cells % 0 % 09/19/17 08:59 Nucleated RBC % Not Reportable 09/19/17 08:59 Seg Neutrophils # 11.2 K/mm3 (1.8-7.7) H 09/16/17 05:47 Seg Neutrophils # Man 21.2 K/mm3 (1.8-7.7) H 09/19/17 08:59 Band Neutrophils # 1.2 K/mm3 09/19/17 08:59 Lymphocytes # (Manual) 1.0 K/mm3 (1.2-5.4) L 09/19/17 08:59 Abs React Lymphs (Man) 0.0 K/mm3 09/19/17 08:59 Monocytes # (Manual) 1.0 K/mm3 (0.0-0.8) H 09/19/17 08:59 Eosinophils # (Manual) 0.0 K/mm3 (0.0-0.4) 09/19/17 08:59 Basophils # (Manual) 0.0 K/mm3 (0.0-0.1) 09/19/17 08:59 Metamyelocytes # 0.0 K/mm3 09/19/17 08:59 Myelocytes # 0.0 K/mm3 09/19/17 08:59 Promyelocytes # 0.0 K/mm3 09/19/17 08:59 Blast Cells # 0.0 K/mm3 09/19/17 08:59 WBC Morphology Not Reportable 09/19/17 08:59 Hypersegmented Neuts Not Reportable 09/19/17 08:59 Hyposegmented Neuts Not Reportable 09/19/17 08:59 Hypogranular Neuts Not Reportable 09/19/17 08:59 Smudge Cells Not Reportable 09/19/17 08:59 Toxic Granulation Not Reportable 09/19/17 08:59 Toxic Vacuolation Not Reportable 09/19/17 08:59 Dohle Bodies Not Reportable 09/19/17 08:59 [place]-Huet Anomaly Not Reportable 09/19/17 08:59 Tray Rods Not Reportable 09/19/17 08:59 Platelet Estimate Consistent w auto 09/19/17 08:59 Clumped Platelets Not Reportable 09/19/17 08:59 Plt Clumps, EDTA Not Reportable 09/19/17 08:59 Large Platelets Not Reportable 09/19/17 08:59 Giant Platelets Not Reportable 09/19/17 08:59 Platelet Satelliting Not Reportable 09/19/17 08:59 Plt Morphology Comment Not Reportable 09/19/17 08:59 RBC Morphology Normal 09/19/17 08:59 Dimorphic RBCs Not Reportable 09/19/17 08:59 Polychromasia Not Reportable 09/19/17 08:59 Hypochromasia Not Reportable 09/19/17 08:59 Poikilocytosis Not Reportable 09/19/17 08:59 Anisocytosis Not Reportable 09/19/17 08:59 Microcytosis Not Reportable 09/19/17 08:59 Macrocytosis Not Reportable 09/19/17 08:59 Spherocytes Not Reportable 09/19/17 08:59 Pappenheimer Bodies Not Reportable 09/19/17 08:59 Sickle Cells Not Reportable 09/19/17 08:59 Target Cells Not Reportable 09/19/17 08:59 Tear Drop Cells Not Reportable 09/19/17 08:59 Ovalocytes Not Reportable 09/19/17 08:59 Helmet Cells Not Reportable 09/19/17 08:59 Hdz-[place] Bodies Not Reportable 09/19/17 08:59 [place] Rings Not Reportable 09/19/17 08:59 [place] Cells Not Reportable 09/19/17 08:59 Bite Cells Not Reportable 09/19/17 08:59 Crenated Cell Not Reportable 09/19/17 08:59 Elliptocytes Not Reportable 09/19/17 08:59 Acanthocytes (Spur) Not Reportable 09/19/17 08:59 Rouleaux Not Reportable 09/19/17 08:59 Hemoglobin C Crystals Not Reportable 09/19/17 08:59 Schistocytes Not Reportable 09/19/17 08:59 Malaria parasites Not Reportable 09/19/17 08:59 Danie Bodies Not Reportable 09/19/17 08:59 Hem Pathologist Commnt No 09/19/17 08:59 PT 15.7 Sec. (12.2-14.9) H 09/14/17 05:43 INR 1.18 (0.87-1.13) H 09/14/17 05:43 Sodium 136 mmol/L (137-145) L 09/21/17 07:54 Potassium 4.3 mmol/L (3.6-5.0) 09/21/17 07:54 Chloride 104.4 mmol/L (98-107) 09/21/17 07:54 Carbon Dioxide 22 mmol/L (22-30) 09/21/17 07:54 Anion Gap 14 mmol/L 09/21/17 07:54 BUN 32 mg/dL (9-20) H 09/21/17 07:54 Creatinine 0.5 mg/dL (0.8-1.5) L 09/21/17 07:54 Estimated GFR > 60 ml/min 09/21/17 07:54 BUN/Creatinine Ratio 64 % 09/21/17 07:54 Glucose 157 mg/dL (75-100) H 09/21/17 07:54 POC Glucose 207 (70-105) H 09/21/17 08:21 Calcium 6.6 mg/dL (8.4-10.2) L 09/21/17 07:54 Phosphorus 1.90 mg/dL (2.5-4.5) L D 09/21/17 07:54 Magnesium 1.50 mg/dL (1.7-2.3) L 09/21/17 07:54 Total Bilirubin 0.90 mg/dL (0.1-1.2) 09/19/17 08:59 AST 85 units/L (5-40) H 09/19/17 08:59 ALT 175 units/L (7-56) H 09/19/17 08:59 Alkaline Phosphatase 753 units/L (35-129) H 09/19/17 08:59 Total Creatine Kinase 77 units/L (55-170) 09/13/17 00:51 CK-MB (CK-2) 8.5 ng/mL (0.0-4.0) H 09/13/17 00:51 CK-MB (CK-2) Rel Index 11.0 (0-4) H 09/13/17 00:51 Troponin T 0.035 ng/mL (0.00-0.029) H D 09/13/17 00:51 NT-Pro-B Natriuret Pep 2723 pg/mL (0-900) H 09/13/17 00:51 Total Protein 4.3 g/dL (6.3-8.2) L 09/19/17 08:59 Albumin 1.7 g/dL (3.9-5) L 09/19/17 08:59 Albumin/Globulin Ratio 0.7 % 09/19/17 08:59 Triglycerides 48 mg/dL (2-149) 09/13/17 00:51 Cholesterol 103 mg/dL (50-199) 09/13/17 00:51 LDL Cholesterol Direct 31 mg/dL (50-130) L 09/13/17 00:51 HDL Cholesterol 65 mg/dL (40-59) H 09/13/17 00:51 Cholesterol/HDL Ratio 1.58 % 09/13/17 00:51 PTH Intact 218.5 pg/mL (15-65) H 09/17/17 16:06 Urine Creatinine 9.9 mg/dL (0.1-20.0) 09/13/17 21:57 Urine Microalbumin < 1.2 mg/dL (0.1-34.0) 09/13/17 21:57 Microalb/Creat Ratio 121.2 ug/mg 09/13/17 21:57 C. difficile Toxin A&B Negative (Negative) 04/09/18 06:30 Blood Type A NEGATIVE 09/18/17 20:37 Antibody Screen Negative 09/18/17 20:37 Crossmatch See Detail 09/18/17 20:37
[2017-09-21] MEDS: ALDACTONE PO SCH (11:54)
[2017-09-21] MEDS: K-PHOS NEUTRAL PO SCH ×3 (14:16→23:05)
[2017-09-21] MEDS: CITRACAL D 315MG-250 UNITS PO SCH ×2 (15:01→23:10)
[2017-09-22 05:33] LABS: BUN/Creatinine Ratio 44; Blood Urea Nitrogen 22 mg/dL (9-20); Calcium 6.4 mg/dL (8.4-10.2); Hemolysis Index 4
[2017-09-22] MEDS: NORCO 5/325 PO PRN ×2 (05:54→12:40)
[2017-09-22] MEDS: CARAFATE PO SCH ×2 (05:54→13:35)
[2017-09-22] MEDS ORDERED: K-DUR PO NR (09:30)
[2017-09-22] MEDS ORDERED: MAGNESIUM SULFATE 2GM/50ML 2 GM/50 ML BAG IV ONE (09:30)
[2017-09-22] MEDS ORDERED: D50W (25GM) Syringe IV ONE (09:30)
[2017-09-22] MEDS: HEPARIN SUB-Q SCH (09:49)
[2017-09-22] MEDS: CITRACAL D 315MG-250 UNITS PO SCH (09:50)
[2017-09-22] MEDS: SLOW-MAG PO SCH (09:50)
[2017-09-22] MEDS: ASPIRIN PO SCH (09:51)
[2017-09-22] MEDS: K-PHOS NEUTRAL PO SCH ×2 (09:51→13:35)
[2017-09-22] MEDS: ALDACTONE PO SCH (09:52)
[2017-09-22] MEDS: PROTONIX PO SCH (09:53)
[2017-09-22] MEDS: KEPPRA PO SCH (09:53)
[2017-09-22] MEDS: LOPRESSOR PO SCH (11:37)
[2017-09-22] MEDS: HumaLOG SUB-Q SCH ×2 (11:37→12:38)
[2017-09-22] MEDS: ZESTRIL PO SCH (11:38)
--- NOTE | 2017-09-22 11:43 | Progress Note ---
Assessment and Plan - Patient Problems (1) Scalp avulsion Onset Date: ~09/18/17 Current Visit: Yes Status: Acute Qualifiers: Encounter type: initial encounter Qualified Code(s): S08.0XXA - Avulsion of scalp, initial encounter Plan to address problem: s/p scalp laceration repair 09/18 - POD#4. Wound ok. Routine care. Will remove trevor after 09/28. Please call if there are any questions. Okay for discharge to home from my perspective. May shower. Pat dry scalp wound. No need for dressings. Subjective Date of service: 09/22/17 Patient Reports: Positive: no new complaints Objective Vital Signs - 12hr 09/22/17 07:24 Temperature 98.7 F Pulse Rate 91 H Respiratory 18 Rate Blood Pressure 96/67 O2 Sat by Pulse 100 Oximetry - General physical appearance no distress, no pain, other (much more interactive today. Appropriate conversation) - Integumentary other (scalp wound is clear, dry, intact. No signs of infection or drainage. Trevor are intact.) - Labs 09/19/17 08:59 09/22/17 07:03 Diabetes panel 09/22/17 09/22/17 Range/Units 04:43 07:03 Sodium 138 (137-145) mmol/L Potassium 3.5 L (3.6-5.0) mmol/L Chloride 106.3 (98-107) mmol/L Carbon Dioxide 23 (22-30) mmol/L BUN 22 H (9-20) mg/dL Creatinine 0.5 L (0.8-1.5) mg/dL Glucose 41 L 96 (75-100) mg/dL Calcium 6.4 L (8.4-10.2) mg/dL Calcium panel 09/22/17 Range/Units 04:43 Calcium 6.4 L (8.4-10.2) mg/dL Phosphorus 1.70 L (2.5-4.5) mg/dL Pituitary panel 09/22/17 09/22/17 Range/Units 04:43 07:03 Sodium 138 (137-145) mmol/L Potassium 3.5 L (3.6-5.0) mmol/L Chloride 106.3 (98-107) mmol/L Carbon Dioxide 23 (22-30) mmol/L BUN 22 H (9-20) mg/dL Creatinine 0.5 L (0.8-1.5) mg/dL Glucose 41 L 96 (75-100) mg/dL Calcium 6.4 L (8.4-10.2) mg/dL Adrenal panel 09/22/17 09/22/17 Range/Units 04:43 07:03 Sodium 138 (137-145) mmol/L Potassium 3.5 L (3.6-5.0) mmol/L Chloride 106.3 (98-107) mmol/L Carbon Dioxide 23 (22-30) mmol/L BUN 22 H (9-20) mg/dL Creatinine 0.5 L (0.8-1.5) mg/dL Glucose 41 L 96 (75-100) mg/dL Calcium 6.4 L (8.4-10.2) mg/dL
--- NOTE | 2017-09-22 14:10 | Discharge Summary ---
Providers - Providers Date of Admission: 09/13/17 02:26 Date of discharge: 09/22/17 Attending physician: KINGSTON ALFRED 09/13/17 16:54 Consult to Wound/ET Nurse [CONS] Routine Reason For Exam: laceration on head 09/14/17 08:00 Consult to Case Management [CONS] Routine Services Needed at Discharge: Other Notified:: oder placed Additional Physician Instructions: Patient reports homlessness and need for help upon discharge 09/15/17 10:19 Consult to Dietitian/Nutrition [CONS] Routine Physician Instructions: Reason For Exam: Reason for Consult: Malnutrition 09/18/17 10:46 Consult to Physician [CONS] Routine Comment: Consulting Provider: NOAM ODELL Physician Instructions: Reason For Exam: gi bleed Consult to Physician [CONS] Routine Comment: Consulting Provider: MERRY POLANCO Physician Instructions: Reason For Exam: scalp laceration 09/19/17 16:57 Physical Therapy Evaluation and Treat [CONS] Routine Comment: Reason For Exam: debility Primary care physician: NEERAJ MCKEON Hospitalization Condition: Stable Hospital course: Mr. Kulkarni is a 52 man who pw seizure. He was seen in ER, then signed out ama, after which he decided to check back in, while in the waiting room the patient had a witnessed generalized tonic-clonic seizure. Acute blood loss anemia was transfused GI bleed from gastric ulcers EGD confirms gastric ulcers continue PPI Sp fall with head trauma and scalp laceration -CTH show no intracranial pathology -scalp was stapled, trevor should be removed after 09/28 Seizure most likely secondary hypoglycemia and presence of amphetamine abuse Seizure precautions, sp EEG which was unremarkable He improved after receiving D50 no further workup indicated Hypoglycemia Assessment and hypoglycemic events in the absence of any adequate caloric intake Polysubsance abuse counselling on cessation done Hypomagnesemia, hypophosphatemia Repleted Vitamin D deficiency -rx with vitamin D/Calcium supplement Hypocalcemia continue ca supplement -Hypokalemia was repleted -Elevated cardiac enzymes cardiac strain due to systolic CHF, malnutrition, seizure, dehydration and GIB, no further workup indicated -Systolic CHF not in failure, monitor -Leukocytosis Likely marginalization from seizure activity We will trend -Amphetamine use disorder He has been counseled on cessation -Severe malnutrition Dietitian consult Debility with frequent falls -case dw CM -as he is homeless, needs to be ambulatory enough to qualify for assisted vs home with family with walker and home PT Case discussed with case management, patient is homeless and will need assisted placement -Acute metabolic encephalopathy, poa DVT Prophylaxis with Lovenox Dispo; dc either to family vs assisted, currently stable for dc with family Disposition: DC-01 TO HOME OR SELFCARE Time spent for discharge: 34 minutes Core Measure Documentation - Palliative Care Palliative Care/ Comfort Measures: Not Applicable - Core Measures Any of the following diagnoses?: none - VTE Discharge Requirements Deep Vein Thrombosis/Pulmonary Embolism Present on Admission: No Has pt received <5 days of overlap therapy or INR<2.0: No Anticoagulant overlap therapy prescribed at discharge: No Contraindication No Overlap Therapy order at DC: Not Indicated Exam - Physical Exam Narrative exam: GEN: Severely cachectic, severe temporal muscle wasting, NAD, AWAKE, ALERT, ORIENTATED x 3 HEENT: NCAT, EOMI, PERRL, OP Clear NECK: supple, no adenopathy, no thyromegaly, no JVD CVS/HEART: RRR, NORMAL S1S2, pulses present bilaterally CHEST/LUNGS: CTA B, Symmetrical chest expansion, good air entry bilaterally GI/Abdomen: soft, NTND, good bowel sounds, no guarding or rebound /Bladder: no suprapubic tenderness, no CVA or paraspinal tenderness EXT/Skin: no c/c/e, no obvious rash MSK: FROM x 4 Neuro: CN 2-12 grossly intact, no new focal deficits Psych: calm - Constitutional Vitals: Temp Pulse Resp BP Pulse Ox 98.7 F 78 16 96/67 98 09/22/17 07:24 09/22/17 13:14 09/22/17 13:40 09/22/17 07:24 09/22/17 12:46 Plan Activity: up only with assistance, fall precautions, other (no strenous activity until cleared by pcp) Diet: advance as tolerated (GI soft diet) Special Instructions: smoking cessation Follow up with: MERRY POLANCO MD [Staff Physician] - 09/28/17 (Please call for appointment - ) NEERAJ MCKEON MD [Primary Care Provider] - 7 Days Prescriptions: Calcium Citrate/Vit D 315-250 [Citracal D 315Mg-250 Units] 2 each PO BID #30 day HYDROcodone/APAP 5-325 [Cl[place]ton 5-325 mg TAB] 1 each PO Q6H PRN #3 day PRN Reason: Pain , Severe (7-10) levETIRAcetam [Keppra TAB] 500 mg PO BID #60 tablet Lisinopril [Zestril TAB] 2.5 mg PO QDAY #30 tablet Magnesium Oxide [Magnesium] 400 mg PO TID #90 tablet Metoprolol [Lopressor TAB] 12.5 mg PO BID #60 tablet Pantoprazole [Protonix TAB] 40 mg PO QDAY #30 tablet Spironolactone [Aldactone] 50 mg PO QDAY #30 tablet Sucralfate [Carafate] 1 gm PO Q6HR #5 day
[2017-09-22 16:00] VITALS: BP 108/72
== END 2017-09-22 17:43 | disposition home or self-care (01) | DRG 380 ==
LOC: ED 00:31 → 4A 02:26 → 3A 09-20 13:44
PROVIDERS: ADMIT Hospitalist; ATTEND Internal Medicine
PROC: 0HQ0XZZ Repair Scalp Skin, External Approach (ICD-10-PCS; 2017-09-18)
PROC: 0DB58ZX Excision of Esophagus, Via Natural or Artificial Opening Endoscopic, Diagnostic (ICD-10-PCS; 2017-09-18)
PROC: 0DB68ZX Excision of Stomach, Via Natural or Artificial Opening Endoscopic, Diagnostic (ICD-10-PCS; 2017-09-18)
PROC: 30233N1 Transfusion of Nonautologous Red Blood Cells into Peripheral Vein, Percutaneous Approach (ICD-10-PCS; principal; 2017-09-19)
DX: K22.11 Ulcer of esophagus with bleeding (principal); J96.01 Acute respiratory failure with hypoxia; E43 Unspecified severe protein-calorie malnutrition; G93.41 Metabolic encephalopathy; D62 Acute posthemorrhagic anemia; I50.20 Unspecified systolic (congestive) heart failure; E16.2 Hypoglycemia, unspecified; K25.4 Chronic or unspecified gastric ulcer with hemorrhage; G40.409 Other generalized epilepsy and epileptic syndromes, not intractable, without status epilepticus; F15.10 Other stimulant abuse, uncomplicated; Z71.51 Drug abuse counseling and surveillance of drug abuser; E83.42 Hypomagnesemia; E83.51 Hypocalcemia; E87.6 Hypokalemia; S01.01XA Laceration without foreign body of scalp, initial encounter; W18.39XA Other fall on same level, initial encounter; Y93.89 Activity, other specified; Y92.89 Other specified places as the place of occurrence of the external cause; K44.9 Diaphragmatic hernia without obstruction or gangrene
CPT/HCPCS: 36415; 70450; 71045; 74177; 80048; 80053; 80061; 82043; 82306; 82550; 82553; 82652; 82947; 82962; 83735; 83880; 83970; 84100; 84132; 84484; 85007; 85025; 85027; 85610; 86850; 86900; 86901; 86920; 87324; 88305; 88342; 93005; 93010; 95819; C9113; J0610; J1644; J1815; J1953; J2060; J2704; J3475; J3480; J7030; J7040; J7050; P9016; Q9967